=== PATIENT | female | born 1955 | race Caucasian/White ===

== ENCOUNTER 2024-07-18 15:32 | Emergency (ER) | payer MEDICARE, SELFPAY ==
[2024-07-18 15:45] VITALS: BP 164/79; PULSE 62; RESP 17; TEMP 36.9; O2SAT 99; BMI 25.3
[2024-07-18 15:53] LABS: Apearance,Urine Cloudy (Clear); Bilirubin,Urine Negative (Negative); Blood, Urine Negative (Negative); Color,Urine Dark Yellow (Yellow); Glucose,Urine (UA) Negative (Negative); Ketones,Urine Negative (Negative); PH,Urine 5.5 (5.0-8.5); Protein,Urine Negative (Negative); UTC Leukocyte Esterase,Urine 2+ (Negative); UTC Nitrate,Urine Negative (Negative); Urobilinogen,Urine 0.2 EU/dl (0.2)
--- NOTE | 2024-07-18 16:02 | ED_ITS ---
Discharge Plan Disposition Patient Disposition: Home, Self-Care Condition: Good Prescriptions Prescriptions: New cephalexin 500 mg capsule 500 mg PO BID 7 Days Qty: 14 0RF No Action risperidone 0.5 mg tablet 1 mg PO HS Qty: 180 3RF megestrol 400 mg/10 mL (10 mL) suspension 400 mg PO DAILY Qty: 900 3RF donepezil 5 mg tablet 5 mg PO HS Qty: 90 3RF polyethylene glycol 3350 [Miralax] 17 gram/dose powder 17 g PO DAILY Qty: 850 3RF ezetimibe [Zetia] 10 mg tablet 10 mg PO DAILY Referrals Follow up/Referrals: Gisell Recinos APRN [Primary Care Provider] - See instructions Activity Restrictions/Add. Instructions Additional Instructions/Restrictions: *Increase fluids. Water not Soda or Tea *Start antibiotic immediately and be sure to take as ordered for the FULL length of time although you should start to see improvement over the next 48 hours Be SURE to follow up anytime for new or worsening symptoms with your family doctor. AND in 48 hours for urine culture results with your family doctor, if you do not have a doctor then you may call back to the [facility] for urine culture results and further treatment. We do recommend that you choose and establish care with a Primary Care Physician. ?AND follow up with them ?in 10-14 days to repeat UA to ensure infection is resolved and blood no longer present *Be sure to let your PCP know that we sent urine cultures from the [facility] so they can follow up to ensure that you area the on the correct antibiotic Call your doctor office and make appointment for 48 hours (2 days from today) ?to follow up and get the results of your urine culture and further treatment Clinical Impressions Clinical Impression: UTI (urinary tract infection) Instructions Patient Instructions: Urinary Tract Infection, DI for Urinary Tract Infection (UTI), Cephalexin Print Language Print Language: Swedish Discharge ED Provider: Anamaria Vazquez [facility] HPI General Stated complaint: possible UTI Mode of Arrival: Ambulatory Source of Information: Relative Limitations: No Limitations Time Seen by Provider: 07/18/24 16:02 Description of Symptoms (Recalled from Triage Doc. by RN): PATIENT'S DAUGHTER REPORTS THAT PATIENT WAS RECENTLY HOSPITALIZED (APPROX 3-4 WEEKS AGO) FOR A UTI AND BLOOD STREAM INFECTION. DAUGHTER STATES THAT PATIENT HAS ALZHEIMER'S AND DEMENTIA WHICH WAS ADVERSELY EFFECTED BY HER UTI. DAUGHTER STATES THAT PATIENT HAS BEEN LIVING WITH HER FOR THE LAST 10 DAYS AND SHE HAS RECENTLY NOTICED A DIFFERENT IN PATIENT'S MEMORY AND BEHAVIOR OVER THE LAST 2 DAYS AND IS CONCERNED THAT SHE HAS ANOTHER UTI. HEENT Symptoms (Recalled from RN notes): No Resp Symptoms (Recalled from RN notes): No Skin Symptoms (Recalled from RN notes): No MS Symptoms (Recalled from RN notes): No Functional Status (Recalled from RN notes): WNL History of Present Illness Provider Complaint: Daughter states that patient just came to live with her States that she has Alzheimer's and Dementia and recently she was in the [facility] with a bad UTI States that when she gets one they told her to watch for changes in behavior and she has been checking her urine with urine strips has noticed a little change in the strip and her behavior so she brought her in wanting to get her checked for UTI Denies fever, denies chills states that she is just acting a little different than she normally does Related Data Home Medications ?Medication ?Instructions ?Recorded ?Confirmed ezetimibe 10 mg tablet (Zetia) 10 mg PO DAILY 07/12/24 07/12/24 Previous Rx's ?Medication ?Instructions ?Recorded donepezil 5 mg tablet 5 mg PO HS #90 tabs 07/12/24 megestrol 400 mg/10 mL (10 mL) 400 mg (10 mL) PO DAILY #900 mL 07/12/24 oral suspension polyethylene glycol 3350 17 17 g PO DAILY #850 grams 07/12/24 gram/dose oral powder (Miralax) risperidone 0.5 mg tablet 1 mg (2 x 0.5 mg) PO HS #180 tabs 07/12/24 cephalexin 500 mg capsule 500 mg PO BID 7 days #14 caps 07/18/24 Allergies Allergy/AdvReac Type Severity Reaction Status Date / Time No Known Allergies Allergy Verified 07/18/24 15:57 Worker's Comp Is this a Worker's Comp case?: No [facility] Disclaimer: The information contained in this section may have been updated after the patient was seen, as this information can be updated by other users. Medical History (Updated 07/18/24 @ 16:10 by Anamaria Vazquez APRN) Urinary tract infection Hyperlipidemia Alzheimer disease Dementia Surgical History (Updated 07/18/24 @ 15:58 by Alba Huerta RN) History of cholecystectomy History of tonsillectomy Social History (Updated 07/12/24 @ 13:11 by Darian Galvan MA) Smoking Status: Unknown if ever smoked alcohol intake: never current occupational status: retired Travel in the last 8 weeks: None adopted: No caregiver/support person: Yes foster care: No household members: children housing: house lives independently: No marital status: unknown Have you lived/traveled outside [place] in past 30 days?: No Contact w/someone who lives/traveled outside US past 30 days?: No Exposure to someone with infectious disease in past 14 days?: No Do you have a fever (greater than 100.4 F or 38 C)?: No Have you tested positive for COVID-19: No Exposed to someone with COVID-19 in past 14 days?: No Do you have a sore throat?: No Do you have a cough?: No Do you have any weakness?: No Do you have any diarrhea?: No Are you experiencing any unusual bleeding?: No Do you have any muscle aches/pain?: No Do you have any abdominal pain?: No Are you experiencing loss of taste or smell?: No ROS Obtained: Yes All systems reviewed & no additional complaints except as documented and Yes Systems reviewed as appropriate & no additional complaints except as documented Constitutional Constitutional: Reports system reviewed and no additional complaints, except as documented and Reports as per HPI ENT Ears, Nose, Mouth, and Throat: Reports system reviewed and no additional complaints, except as documented and Reports as per HPI Cardiovascular Cardiovascular: Reports system reviewed and no additional complaints, except as documented and Reports as per HPI Respiratory Respiratory: Reports system reviewed and no additional complaints, except as documented and Reports as per HPI Gastrointestinal Gastrointestingal: Reports system reviewed and no additional complaints, except as documented and as per HPI Physical Exam General General appearance: alert and in no apparent distress Chest Chest inspection: Present normal inspection and symmetric chest wall rise Respiratory Respiratory exam: Present normal lung sounds bilaterally; Absent respiratory distress or wheezes Cardiovascular Cardiovascular exam: Present regular rate, normal rhythm and normal heart sounds Abdominal Exam Abdominal exam: Present soft and normal bowel sounds; Absent distention or tenderness Neurological Exam Neurological exam: Present alert, oriented X3 and normal gait Medical Decision Making Medical Records Screening: Per USPSTF and CDC recommendations, given the prevalence of disease in our [facility], it is our hospital?s policy to screen for HIV and viral Hepatitis for all patients aged 18 and over and those with ongoing risk factors. Francesco Inquiry Pt receiving controlled substance: No Francesco was queried for this patient: No Vital Signs: 07/18/24 15:45 Temperature 98.4 F Temperature Source Oral Pulse Rate [Right Brachial] 62 Respiratory Rate 17 Blood Pressure [Right Arm] 164/79 H Blood Pressure Mean [Right Arm] 107 Blood Pressure Source [Right Arm] Automatic Cuff Blood Pressure Position [Right Arm] Sitting 02 Sat by Pulse Oximetry 99 Oxygen Delivery Method Room Air Lab Data Lab results reviewed: Yes I reviewed the patient's lab results. Lab Results 07/18/24 15:37: Urine Color Dark yellow, Urine Appearance Cloudy, Urine pH 5.5, Ur Specific [place] 1.030, Urine Protein Negative, Urine Glucose (UA) Negative, Urine Ketones Negative, Urine Blood Negative, Urine Nitrate Negative, Urine Bilirubin Negative, Urine Urobilinogen 0.2, Ur Leukocyte Esterase 2+ A Orders (Tests/Meds): ORDERS Category Date Time Status Urine Culture Stat Micro 07/18/24 15:42 Received
[2024-07-18 16:10] VITALS: BP 164/79; PULSE 62; RESP 17; TEMP 36.9; O2SAT 99
== END 2024-07-18 16:14 | disposition home or self-care (01) ==
PROVIDERS: Emergency Provider Nurse Practitioner; PCP Nurse Practitioner Family
DX: N39.0 Urinary tract infection, site not specified (principal)
CPT/HCPCS: 81003; 87086; 99213; G0381

== ENCOUNTER 2024-07-31 16:00 | Outpatient (RCR) | payer MEDICARE, SELFPAY ==
--- NOTE | 2024-07-18 15:41 | HMH.PTOPEV ---
PT Outpatient Evaluation Rehab PT Outpatient Evaluation Start: 07/18/24 15:26 Freq: Status: Active Protocol: Document 07/18/24 15:26 RANDAL (Rec: 07/18/24 15:41 RANDAL [id number]) E-signed By Thuan Adair, PT Outpatient Therapy Subjective History Subjective History The patient is a 68 yof who is referred to [facility] outpatient Physical Therapy due to generalized weakness and balance problems. The patient presents with her daughter who helped provide the majority of her subjective history. The patient recently was diagnosed with both dementia and Alzheimer's disease. She recently moved in with her daughter. The daughter reports that she has noticed that she has been taking much shorter steps when walking, is having difficulty going up and down stairs, and has difficulty getting up from chairs at times. The patient also reports that she gets steroid injections into her knees regularly. The patient and daughter deny any falls. New diagnosis of cancer in past 12 No months? Chief Complaint Decreased Coordination Prior Functional Limitations None Current Functional Limitations Housework,Standing,Recreation Activity,Walking,Stairs, Balance Level of pain today (0-10) 0 Pain scale - at its best (0-10) 0 Pain scale - at its worst (0-10) 0 Hip/Knee Eval MMT bilateral Hip Flexion Strength Grade 3+ Fair+ Hip Abduction Strength Grade 3+ Fair+ Hip Adduction Strength Grade 3+ Fair+ Hip Extension Strength Grade 3+ Fair+ Knee Extension Strength Grade 4 Good Knee Flexion Strength Grade 4 Good Balance Eval Timed Up and Go Test 1. Is the Timed Up and Go test result > yes or = to 12 seconds? [place] Feet Together/Eyes open/Stable Surface pass Feet Together/Eyes Closed/Stable Surface pass Feet Together/Eyes open/Unstable Surface fail Feet Together/Eyes Closed/Unstable fail Surface Dynamic Gait Index Test Protocol Gait Level Surface Mild Impairment Query Text: Instructions: Walk at your normal speed from here to the next mirna (20'). Grading: Mirna the lowest category that applies. Change in Gait Speed Mild Impairment Query Text: Instructions: Begin walking at your normal pace (for 5'), when I tell you go , walk as fast as you can (for 5'). When I tell you slow , walk as slowly as you can (for 5'). Grading: Mirna the lowest category that applies. Gait with Horizontal Head Turns Moderate Impairment Query Text: Instructions: Begin walking at your normal pace. When I tell you to look right , keep walking straight, but turn you head to the right. Keep looking to the right unit I tell you look left , then keep walking straight and turn your head to the left. Keep your head to the left until I tell you look straight , then keep walking straight, but return you head to the center. Grading: Mirna the lowest category that applies. Gait with Vertical Head Turns Moderate Impairment Query Text: Instructions: Begin walking at your normal pace. When I tell you to look up , keep walking staight, but tip your head up. Keep looking up until I tell you to look down , then keep walking straight and tip your head down. Keep your head down until I tell you look straight , then keep walking straight, but return your head to the center. Grading: Mirna the lowest category that applies. Gait and Pivot Turn Normal Query Text: Instructions: Begin walking at your normal pace. When I tell you turn and stop , turn as quickly as you can to face the opposite direction and stop. Grading: Mirna the lowest category that applies. Step Over Obstacle Mild Impairment Query Text: Instructions: Begin walking at your normal speed. When you come to the shoebox, step over it, not around it and keep walking. Grading: Mirna the lowest category that applies. Step Around Obstacles Normal Query Text: Instructions: Begin walking at normal speed. When you come to the first cone (about 6' away), walk around the right side of it. When you come to the second cone (6' past first cone), walk around it to the left. Grading: Mirna the lowest category that applies. Steps Moderate Impairment Query Text: Instructions: Walk up these stairs as you would at home. At the top, turn around and walk down. Grading: Mirna the lowest category that applies. Scoring Dynamic Gait Index Score 15 Miscellaneous Dx PT Eval Objective Objective Tandem L: 12s Tandem R: 20s SLS: L 4s SLS: R 6s Outpatient Therapy Assessment Impairments Problems/Impairmments Impaired Strength,Impaired Gait Pattern,Impaired Walking, Impaired Stair Climbing, Impaired DGI Score,Impaired TUG Time Prognosis Rehab Potential Fair Comment The patient presents with impairments in strength, balance and gait. She demonstrates slowed, shuffling gait. She also scored a 15/24 on the DGI, which is indicative that the patient is a current fall risk. Skilled PT is indicated for this pt to address her current impairments and prevent future injuries. Clinical Impression Consistent with Diagnosis Yes Short Term Goals Number of Weeks 4 Increase Strength Yes: /5 to B LEs Improve Gait Pattern without Assistive Yes: Normalized Step Length BL Device Improve Balance Yes: Tandem Stance: 30s B Increase DGI Score Yes: to Decrease TUG Time Yes: to 12s Patient to be Ind w/ HEP Yes Care Home Goals Number of Weeks 8 Increase Strength Yes: 12/04 to B LEs Improve Ability to Climb Stairs Yes: Independently Improve Balance Yes: SLS 30s B Increase DGI Score Yes: Patient to be Ind w/ Advanced HEP Yes Outpatient Therapy Plan of Care Treatment Plan May Include Therapeutic Exercise Including Home Yes Exercise Program Manual Therapy Techniques Yes Neuromuscular Re-education Yes Therapeutic Activities to Return to Yes Previous Functional/Work Level Gait Training Yes ADL/Self Care Education Yes Thermal Modalities Yes Electrical Stimulation Yes Massage Yes Manual Lymphatic Drainage Yes Frequency Times per week 2 Duration Number of Weeks 8 Addendums This patient is a candidate for social No or vocational rehab? Patient/Guardian verbally acknowledges Yes understanding of treatment program and consents to further treatment? Patient/Guardian verbally acknowledges Yes understanding of diagnosis, prognosis and goals for treatment? Eval Complexity PT Charges 32200 - Moderate Complexity Shoulder/Elbow Eval Shoulder Objective Measurements Elbow Objective Measurements PHYSICIAN CERTIFICATION: I certify the specified therapy services for Anamaria Kelly are required, authorized, and reviewed every 30 days.
== END 2024-07-31 23:59 | disposition home or self-care (01) ==
LOC: PT 16:00
PROVIDERS: PCP Nurse Practitioner Family; Visit Provider Nurse Practitioner Family
DX: R53.1 Weakness (principal); G30.9 Alzheimer's disease, unspecified; F02.818 Dementia in other diseases classified elsewhere, unspecified severity, with other behavioral disturbance
CPT/HCPCS: 97163

== ENCOUNTER 2024-08-04 15:40 | Outpatient (RCR) | payer MEDICARE, SELFPAY | END 2024-08-04 23:59 | disposition home or self-care (01) | LOC: PT 15:40 | PROVIDERS: PCP Nurse Practitioner Family; Visit Provider Nurse Practitioner Family | DX: R53.1 Weakness (principal); G30.9 Alzheimer's disease, unspecified; F02.818 Dementia in other diseases classified elsewhere, unspecified severity, with other behavioral disturbance | CPT/HCPCS: 97110; 97530 ==

== ENCOUNTER 2024-08-14 14:04 | Outpatient (CLI) | payer MEDICARE, SELFPAY ==
[2024-08-14 14:03] LABS: Basophils # 0.1 K/mm3 (0-0.2); Eosinophils # 0.2 K/mm3 (0.0-0.4); Eosinophils % 3.4 % (0.1-12.0); Lymphocytes # 0.9 K/mm3 (0.7-4.5); Lymphocytes % 16.7 % (10-50); Red Cell Distribution Width 13.7 % (11.5-17.5)
[2024-08-14 14:08] LABS: Basophils % 1.7 % (0.1-2.0); Hemoglobin 12.9 g/dL (12.2-16.2); Mean Corpuscular HGB Conc 32.3 g/dL (31.8-35.4); Mean Corpuscular Hemoglobin 29.9 pg (27.0-31.2); Mean Corpuscular Volume 92.8 fl (81-99); Mean Platelet Volume 9.8 fl (7.4-10.4); Monocytes # 0.4 K/mm3 (0.1-1.0); Monocytes % 8.1 % (1.7-9.3); Neutrophils # 3.7 K/mm3 (1.8-7.8); Neutrophils % 69.7 % (37.0-80.0); Platelet Count 223 K/mm3 (142-424); Red Blood Count 4.31 M/mm3 (4.20-5.40); White Blood Count 5.3 K/mm3 (4.8-10.8)
[2024-08-14 14:23] LABS: Alanine Aminotransferase 20 U/L (12-78); Albumin/Globulin Ratio 1.9 (1.1-1.8); Alkaline Phosphatase 70 U/L (38-126); Aspartate Amino Transferase 30 U/L (14-36); Bilirubin,Total 0.4 mg/dl (0.2-1.3); Blood Urea Nitrogen 13 mg/dl (7-17); Calcium 9.3 mg/dl (8.4-10.2); Carbon Dioxide 27 mmol/L (22.0-30.0); Chloride 105 mmol/L (98-107); Chol/HDL Ratio 3.4 (1-3.5); Cholesterol 198 mg/dl (140-200); Estimated Glomerular Filt Rate 99 ml/min (>60); GFR (African American) 120 ML/MIN (>60); Globulin 2.1 g/dL (1.3-3.2); Glucose 77 mg/dl (74-100); HDL Cholesterol 59 mg/dl (40-60); Phosphorous 3.6 mg/dl (2.5-4.5); Sodium 139 mmol/L (136-145); Total Protein,Serum 6.1 g/dl (6.3-8.2); Triglycerides 77 mg/dl (30-150); VLDL Cholesterol 15 mg/dL (0-40)
[2024-08-14 14:32] LABS: Iron 81 ug/dL (37-170)
[2024-08-14 14:34] LABS: Direct LDL Cholesterol 111.46 mg/dL (100-129)
[2024-08-14 14:41] LABS: Total Iron Binding Capacity 296 ug/dL (265-497)
[2024-08-14 14:42] LABS: 25-OH Vitamin D, Total 23.6 ng/mL (30-100); Free T4 (Free Thyroxine) 1.35 ng/dl (0.78-2.19)
[2024-08-14 14:55] LABS: Thyroid Stimulating Hormone 0.14 uIU/mL (0.465-4.68)
[2024-08-14 14:58] LABS: RPR W/RFX Titers Nonreactive (Nonreactive)
[2024-08-14 15:02] LABS: HIV Combo NEGATIVE (Negative)
[2024-08-14 15:08] LABS: Ferritin 106 ng/ml (11.1-264)
[2024-08-14 15:10] LABS: Hepatitis C Ab Qual. W/ RFX NEGATIVE (Negative)
[2024-08-14 15:31] LABS: Folate 7.64 ng/mL; Vitamin B12 232 pg/mL (239-931)
== END 2024-08-14 23:59 | disposition home or self-care (01) ==
LOC: LAB.DROPOF 14:04
PROVIDERS: PCP Nurse Practitioner Family; Visit Provider Nurse Practitioner Family
DX: E78.5 Hyperlipidemia, unspecified (principal); D64.9 Anemia, unspecified; G30.9 Alzheimer's disease, unspecified; F02.818 Dementia in other diseases classified elsewhere, unspecified severity, with other behavioral disturbance; E55.9 Vitamin D deficiency, unspecified; R63.4 Abnormal weight loss; R53.83 Other fatigue; G47.00 Insomnia, unspecified
CPT/HCPCS: 80053; 80061; 82306; 82607; 82728; 82746; 83540; 83550; 83735; 84100; 84439; 84443; 85025; 86592; 86803; 87389

== ENCOUNTER 2024-08-16 15:00 | Outpatient (CLI) | payer MEDICARE, SELFPAY ==
--- NOTE | 2024-08-16 15:01 | XR_ITS ---
FINAL REPORT TECHNIQUE: Bone densitometry calculations of the lumbar spine and left hip were obtained. CLINICAL HISTORY: screening osteoporosis COMPARISON: None FINDINGS: Using L1-4, the bone mineral density of the spine is 0.976 g/cm2, corresponding to T-score of -0.6. Using the left hip, the bone mineral density of the femoral neck is 0.734 g/cm2, corresponding to a T-score of -1.7. Using the right hip, the bone mineral density of the femoral neck is 0.573 g/cm?, corresponding to a T-score of -2.5. NOTE: T-score: Standard deviation compared with peak bone mass of young adult mean. *Following the recommendations of the International Society of Bone densitometry, classification of hip BMD is based on the lower of two T-scores; total hip or femoral neck. IMPRESSION: Diminished bone mineral density of the right hip consistent with osteoporosis. Diminished bone mineral density of the left hip, consistent with osteopenia. Normal bone mineral density of the lumbar spine. Reviewed, Interpreted and Dictated by Mony Maki MD Transcribed by Lesa White Authenticated and [facility]
--- NOTE | 2024-08-16 15:01 | MM_ITS ---
PROCEDURE INFORMATION: Exam: MG Bilateral Screening 3D Mammography Exam date and time: 08/16/2024 3:01 PM Age: 68 years old Clinical indication: Screening/baseline. No family history of cancer. TECHNIQUE: Imaging protocol: Bilateral Screening tomosynthesis and 2D mammography including computer-aided detection (CAD) when performed. COMPARISON: No relevant prior studies available.If prior mammograms are provided, I am happy to add an addendum. FINDINGS: MAMMOGRAPHY: Breast composition: There are scattered areas of fibroglandular density. Mass: None. Architectural distortion: None. Calcifications: No suspicious calcifications. Asymmetric density: None. Skin thickening: None. Axillary adenopathy: Oval 0.4 cm mass high in the left axilla, more likely a lymph node though no fatty hilum identified, MLO image 1372 frame 13, 18-20 cm from the nipple. IMPRESSION: Patient will be recalled for left sonography in the upper left breast/axilla, 18-20 cm from the nipple for further evaluation of mass, more likely a lymph node. ASSESSMENT: BI-RADS Category 0: Incomplete: Need Additional Imaging Evaluation.
== END 2024-08-16 23:59 | disposition home or self-care (01) ==
LOC: RAD 15:01
PROVIDERS: PCP Nurse Practitioner Family; Visit Provider Nurse Practitioner Family
DX: M81.0 Age-related osteoporosis without current pathological fracture (principal); Z12.31 Encounter for screening mammogram for malignant neoplasm of breast
CPT/HCPCS: 77063; 77067; 77080

== ENCOUNTER 2024-08-25 13:07 | Outpatient (CLI) | payer MEDICARE, SELFPAY ==
--- NOTE | 2024-08-25 13:08 | US_ITS ---
PROCEDURE INFORMATION: Exam: US Left Joint, Complete Exam date and time: 08/25/2024 1:12 PM Age: 68 years old Clinical indication: Abnormal findings; Abnormal imaging study; Lt axillary; Additional info: Enlarged left axillary lymph node on mammogram TECHNIQUE: Imaging protocol: Left US Joint including joint space, tendons, ligaments, and emeli-articular soft tissue. Complete exam. Exam was focused on the joint of clinical interest. COMPARISON: No relevant prior studies available. FINDINGS: Soft tissues: Ultrasonographic images of the soft tissues in questions/left axillary region. Lymph node of approximately 2 x 0.7 x 1.4 cm. Fatty nidus. Additional lymph nodes of approximately 0.7 and 1.1 cm. Fatty nidus. Bones/joints: Not imaged IMPRESSION: Ultrasonographic images of the soft tissues in questions/left axillary region. Lymph node of approximately 2 x 0.7 x 1.4 cm. Fatty nidus. Additional lymph nodes of approximately 0.7 and 1.1 cm. Fatty nidus.
== END 2024-08-25 23:59 | disposition home or self-care (01) ==
PROVIDERS: PCP Nurse Practitioner Family; Visit Provider Nurse Practitioner Family
DX: R92.8 Other abnormal and inconclusive findings on diagnostic imaging of breast (principal); R59.0 Localized enlarged lymph nodes
CPT/HCPCS: 76642

== ENCOUNTER 2024-10-01 16:47 | Observation (INO) | payer MEDICARE, SELFPAY ==
[2024-10-01] VITALS (13 sets, daily range): BP systolic 149–191; BP diastolic 79–109; PULSE 68–102; RESP 14–18; TEMP 36.6–37.3; O2SAT 97–100; BMI 22.9; BMI 23.5
--- NOTE | 2024-10-01 17:52 | PC.NURSE ---
pt brought back to RM 8 from the lobby. pt c/o weakness, dizziness when standing/ambulating, and difficulty swallowing making it difficult for her to get a good breath. This began this AM. pts breathing is non-labored, 97% RA and 18 RR. pt is continually smacking and trying to swallow. She is intermittently trying to clear her throat. pt denies chest pain, abd pain, cough, urinary issues or congestion. Pts daughter states that over the last few days she has had decreased PO intake, mostly a decrease in fluid intake. pt has a hx of parkinsons dementia. Pt is A&O x3. disoriented to year/month. The pts daughter states this is her baseline. However, the daughter reports she seems slightly more confused. The daughter would like her checked for a UTI.
--- NOTE | 2024-10-01 18:49 | XR_ITS ---
PROCEDURE INFORMATION: Exam: XR Soft Tissue Neck Exam date and time: 10/01/2024 7:27 PM Age: 68 years old Clinical indication: Other: Difficulty swallowing TECHNIQUE: Imaging protocol: Radiologic exam of the soft tissues of the neck. COMPARISON: CR Chest 10/01/2024 7:26 PM FINDINGS: Airway: Normal. No abnormal narrowing. Soft tissues: Normal. Normal epiglottis. Bones/joints: Diffuse decreased disc space height demonstrated at The C4-C7 levels. Vertebral body heights and disc space heights appear otherwise normal. IMPRESSION: No visible acute fracture/malalignment.
--- NOTE | 2024-10-01 18:49 | XR_ITS ---
PROCEDURE INFORMATION: Exam: XR Chest Exam date and time: 10/01/2024 7:26 PM Age: 68 years old Clinical indication: Shortness of breath; Additional info: Difficulty breathing TECHNIQUE: Imaging protocol: Radiologic exam of the chest. Views: 1 view. COMPARISON: No relevant prior studies available. FINDINGS: Lungs: Unremarkable. No consolidation. Pleural spaces: Unremarkable. No pleural effusion. No pneumothorax. Heart/Mediastinum: Unremarkable. No cardiomegaly. Bones/joints: Unremarkable. IMPRESSION: No acute findings.
--- NOTE | 2024-10-01 18:50 | ED_ITS ---
Discharge Plan Disposition Patient Disposition: Admitted Condition: Fair Clinical Impressions Clinical Impression: Urinary tract infection Discharge ED Provider: Valerie Maloney General Adult HPI General Chief complaint: Weakness Stated complaint: SOA,difficulty swollowing,? UTI, BP 167/80 Time Seen by Provider: 10/01/24 18:13 Mode of Arrival: Ambulatory Source of Information: Patient and Relative Limitations: No Limitations Description of Symptoms (Recalled from ER Triage Doc. by RN): Pt presents with daughter for evaluation of patient having difficulty swallowing over the last few days. Pt states it becomes difficult to swallow because her throat gets dry. daughter says that patient is eating/drinking less. Daughter is concerned that patient may have a UTI because she has been up more frequently during the night. History of Present Illness HPI narrative: Anamaria Kelly is a 68-year-old female presenting with difficulty swallowing. Patient is accompanied by her daughter who provides history at bedside. Daughter states the patient began complaining of difficulty breathing and swallowing today. She states she is pointing to her upper chest, lower neck to describe where her symptoms are. Patient has history of Parkinson's. Daughter states that patient has not drank anything today due to this feeling. Patient has not had fevers, chills, chest pain, abdominal pain, nausea, vomiting. Related Data Previous Rx's ?Medication ?Instructions ?Recorded donepezil 5 mg tablet 5 mg PO HS #90 tabs 07/12/24 cholecalciferol (vitamin D3) 50 50 mcg PO DAILY #90 caps 08/14/24 mcg (2,000 unit) capsule mecobalamin (vitamin B12) 1,000 1,000 mcg PO DAILY #90 tabs 08/14/24 mcg chewable tablet calcium carbonate 1,200 mg (2 x 600 mg calcium 08/17/24 (1,500 mg)) PO DAILY #180 tabs denosumab 60 mg/mL subcutaneous 60 mg SQ [id number] #1 mL 08/17/24 syringe (Prolia) Allergies Allergy/AdvReac Type Severity Reaction Status Date / Time No Known Allergies Allergy Verified 09/15/24 09:34 [facility] Disclaimer: The information contained in this section may have been updated after the patient was seen, as this information can be updated by other users. Medical History Urinary tract infection Hyperlipidemia Alzheimer disease Dementia Surgical History History of cholecystectomy History of tonsillectomy Family History Other Cancer Cancer of kidney Parkinson disease Social History Smoking Status: Never smoker alcohol intake: never current occupational status: retired Travel in the last 8 weeks: None adopted: No caregiver/support person: Yes foster care: No household members: children housing: house lives independently: No marital status: unknown Have you lived/traveled outside [place] in past 30 days?: No Contact w/someone who lives/traveled outside [place] past 30 days?: No Exposure to someone with infectious disease in past 14 days?: No Do you have a fever (greater than 100.4 F or 38 C)?: No Have you tested positive for COVID-19: No Exposed to someone with COVID-19 in past 14 days?: No Do you have a sore throat?: No Do you have a cough?: No Do you have any weakness?: No Are you experiencing any nausea/vomitting?: No Do you have any diarrhea?: No Are you experiencing any unusual bleeding?: No Do you have any muscle aches/pain?: No Do you have any abdominal pain?: No Are you experiencing loss of taste or smell?: No Other Medical History Have you received the Pneumonia Vaccine: Yes ROS Obtained: Yes All systems reviewed & no additional complaints except as documented Physical Exam General General appearance: alert and in no apparent distress Head Head exam: atraumatic Eye Eye exam: Present EOMI; Absent scleral icterus ENT ENT exam: Present normal oropharynx, mucous membranes dry and other (Patient continually moving tongue and mouth appearing to attempt to swallow. No drooling, no trismus. ) Neck Neck exam: Present normal inspection, full ROM and trachea midline; Absent tenderness or thyromegaly Chest Chest inspection: Present normal inspection; Absent tenderness Respiratory Respiratory exam: Present normal lung sounds bilaterally; Absent respiratory distress, wheezes or stridor Cardiovascular Cardiovascular exam: Present regular rate and normal rhythm Abdominal Exam Abdominal exam: Present soft; Absent distention or tenderness Extremities Exam Extremities exam: Present full ROM; Absent tenderness or edema Back Exam Back exam: Present full ROM Neurological Exam Neurological exam: Present alert and oriented X3 Psychiatric Psychiatric exam: Present normal mood Skin Skin exam: Present warm and dry Medical Decision Making Medical Records Medical records reviewed: Yes I reviewed the patient's medical records. Screening: Per USPSTF and CDC recommendations, given the prevalence of disease in our region, it is our hospital?s policy to screen for HIV and viral Hepatitis for all patients aged 18 and over and those with ongoing risk factors. Francesco Inquiry Pt receiving controlled substance: No Vital Signs: 10/01/24 17:03 10/01/24 17:54 10/01/24 18:00 Temperature 99.1 F Temperature Source Oral Pulse Rate 71 83 Pulse Rate [Right] 68 Respiratory Rate 18 Blood Pressure 166/94 H 157/91 H Blood Pressure [Right Arm] 153/79 H Blood Pressure Mean Blood Pressure Mean [Right Arm] 103 Blood Pressure Source [Right Arm] Automatic Cuff Blood Pressure Position Blood Pressure Position [Right Arm] Sitting 02 Sat by Pulse Oximetry 98 99 98 Oxygen Delivery Method Room Air Room Air Room Air 10/01/24 18:30 10/01/24 19:00 10/01/24 19:30 Temperature Temperature Source Pulse Rate 88 91 H 96 H Pulse Rate [Right] Respiratory Rate Blood Pressure 177/103 H 179/103 H 191/109 H Blood Pressure [Right Arm] Blood Pressure Mean 128 136 Blood Pressure Mean [Right Arm] Blood Pressure Source [Right Arm] Blood Pressure Position Blood Pressure Position [Right Arm] 02 Sat by Pulse Oximetry 97 99 99 Oxygen Delivery Method Room Air 10/01/24 20:00 10/01/24 20:30 10/01/24 21:00 Temperature Temperature Source Pulse Rate 102 H 100 H 90 Pulse Rate [Right] Respiratory Rate Blood Pressure 173/100 H 169/99 H 149/89 H Blood Pressure [Right Arm] Blood Pressure Mean 133 122 109 Blood Pressure Mean [Right Arm] Blood Pressure Source [Right Arm] Blood Pressure Position Blood Pressure Position [Right Arm] 02 Sat by Pulse Oximetry 99 98 99 Oxygen Delivery Method 10/01/24 21:30 10/01/24 22:00 10/01/24 23:43 Temperature 99 F Temperature Source Oral Pulse Rate 88 79 78 Pulse Rate [Right] Respiratory Rate 14 Blood Pressure 157/89 H 168/93 H 162/87 H Blood Pressure [Right Arm] Blood Pressure Mean 117 109 Blood Pressure Mean [Right Arm] Blood Pressure Source [Right Arm] Blood Pressure Position Sitting Blood Pressure Position [Right Arm] 02 Sat by Pulse Oximetry 99 98 Oxygen Delivery Method Room Air Lab Data Lab results reviewed: Yes I reviewed the patient's lab results. Lab Results 10/01/24 18:30: WBC 6.0, RBC 4.31, Hgb 12.8, Hct 40.0, MCV 92.8, MCH 29.7, MCHC 32.0, RDW 12.8, Plt Count 222, MPV 10.2, Neut % (Auto) 62.8, Lymph % (Auto) 23.4, [place] % (Auto) 8.2, Eos % (Auto) 4.2, Baso % (Auto) 1.2, Neut # (Auto) 3.7, Lymph # (Auto) 1.4, [place] # (Auto) 0.5, Eos # (Auto) 0.3, Baso # (Auto) 0.1, Sodium 140, Potassium 4.1, Chloride 108 H, Carbon Dioxide 26, Anion Gap 10.1, BUN 14, Creatinine 0.60, Estimated Creat Clear 53, Estimated GFR 99, Est GFR ( Amer) 120, Glucose 98, Calcium 7.9 L, Total Bilirubin 0.6, AST 33, ALT 25, Alkaline Phosphatase 83, Total Protein 6.7, Albumin 4.3, Globulin 2.4, Albumin/Globulin Ratio 1.8, TSH 0.30 L, Free T4 1.48 10/01/24 18:30 10/01/24 18:30 Orders (Tests/Meds): ED MEDICATIONS Generic Name Dose Route Start Last Admin Trade Name Freq PRN Reason Stop Dose Admin Lactated Ringer's 1,000 mls @ 50 mls/hr 10/01/24 23:15 10/01/24 23:51 Lactated Ringer's 1000 Ml Bag IV 10/31/24 23:14 50 mls/hr .Q20H MARCELLA Administration Ondansetron HCl 4 mg 10/01/24 23:08 Ondansetron 4mg/2ml Vial IV 10/31/24 23:07 Q8HP PRN Nausea Discontinued Medications Generic Name Dose Route Start Last Admin Trade Name Freq PRN Reason Stop Dose Admin Lactated Ringer's 1,000 mls @ 999 mls/hr 10/01/24 19:50 10/01/24 20:48 Lactated Ringer's 1000 Ml Bag IV 10/01/24 20:50 999 mls/hr .Q1H1M ONE Administration Iopamidol 75 ml 10/01/24 21:38 10/01/24 21:40 Iopamidol-370 (76%);100ml Bottle IV 10/01/24 21:39 75 ml ONCE ONE Administration Sodium Chloride 10 ml 10/01/24 21:38 10/01/24 21:40 Sodium Chloride 0.9% 10ml Syr (Rad Only) IV 10/01/24 21:39 10 ml ONCE ONE Administration ORDERS Category Date Time Status CT head/brain wo con Stat Cat Scan 10/01/24 21:[address] soft tissue neck w con Stat Cat Scan 10/01/24 21:23 Completed CXR --portable [XR chest portable] Stat Exams 10/01/24 18:49 Completed Neck soft tissue XR [XR soft tissue neck] Stat Exams 10/01/24 18:49 Completed CBC w/Auto Diff [Complete Blood Count Auto Diff] Stat Lab 10/01/24 18:30 Completed CMP [Comprehensive Metabolic Panel] Stat Lab 10/01/24 18:30 Completed Free T4 (Free Thyroxine) Stat Lab 10/01/24 18:30 Completed TSH [Thyroid Stimulating Hormone] Stat Lab 10/01/24 18:30 Completed Urinalysis and Microscopic Stat Lab 10/01/24 18:52 Ordered ECG Data Tracing #1: I reviewed this ECG and interpreted as documented below: Sinus rhythm with a rate of 76, no QTc prolongation, no significant ST elevation/depression or evidence of acute ischemia Medical Decision Narrative: In summary, this is a 68-year-old female presenting with difficulty breathing and swallowing. Differential diagnosis includes was not limited to, dysmotility, achalasia, aspiration, obstruction, stroke, among others. Concern for neurologic source based on timeline of difficulty swallowing as well as potential Parkinson's disease that has not been diagnosed yet. Patient's family at bedside states patient has multiple direct family members that have had Parkinson's. Patient evaluated with CBC, CMP, urinalysis, CXR, neck XR. Patient treated with IV fluids. CBC negative for leukocytosis, anemia, thrombocytopenia. CMP nonactionable. Urinalysis pending. CXR personally reviewed by me and negative for acute consolidation, pneumothorax, widened mediastinum. Neck XR personally reviewed by me and negative for airway obstruction or narrowing. Patient case discussed with [facility] hospitalist for formal swallow study and Occupational Therapy/speech therapy evaluation. We were in agreement that patient may need further neurologic evaluation. I spoke with the hospitalist at [facility], who requested CT head and CT soft tissue neck. These scans were ordered and negative for acute infarct or obstructive pathology in the neck. CT neck did demonstrate small thyroid nodules which will require further evaluation. TSH and free T4 added to patient's evaluation and unremarkable. These nodules were not large enough to cause compression and difficulty swallowing. I communicated with the hospitalist at [facility] who agreed to accept the patient as a transfer for further neurologic evaluation. Unfortunately, no beds are currently available. Based on patient waiting for a bed, I spoke with the [facility] hospitalist again who agreed to admit the patient while awaiting transfer to [facility]. Patient and family were updated about this plan. They were in agreement with the plan. Patient admitted in stable condition. Critical Care Critical Care Time Critical Care Time: No
[2024-10-01 18:57] LABS: Basophils # 0.1 K/mm3 (0-0.2); Basophils % 1.2 % (0.1-2.0); Eosinophils # 0.3 K/mm3 (0.0-0.4); Eosinophils % 4.2 % (0.1-12.0); Hemoglobin 12.8 g/dL (12.2-16.2); Lymphocytes # 1.4 K/mm3 (0.7-4.5); Lymphocytes % 23.4 % (10-50); Mean Corpuscular Hemoglobin 29.7 pg (27.0-31.2); Mean Corpuscular Volume 92.8 fl (81-99); Mean Platelet Volume 10.2 fl (7.4-10.4); Monocytes # 0.5 K/mm3 (0.1-1.0); Monocytes % 8.2 % (1.7-9.3); Neutrophils # 3.7 K/mm3 (1.8-7.8); Neutrophils % 62.8 % (37.0-80.0); Platelet Count 222 K/mm3 (142-424); Red Blood Count 4.31 M/mm3 (4.20-5.40); Red Cell Distribution Width 12.8 % (11.5-17.5)
[2024-10-01 19:12] LABS: Albumin Level 4.3 g/dl (3.5-5.0); Chloride 108 mmol/L (98-107); Potassium 4.1 mmoL/L (3.5-5.1); Sodium 140 mmol/L (136-145)
[2024-10-01 19:15] LABS: Alanine Aminotransferase 25 U/L (12-78); Albumin/Globulin Ratio 1.8 (1.1-1.8); Alkaline Phosphatase 83 U/L (38-126); Anion Gap 10.1 mEq/L (5-15); Aspartate Amino Transferase 33 U/L (14-36); Bilirubin,Total 0.6 mg/dl (0.2-1.3); Blood Urea Nitrogen 14 mg/dl (7-17); Carbon Dioxide 26 mmol/L (22.0-30.0); Creatinine Clearance Estimated 53 mL/min (50-200); Estimated Glomerular Filt Rate 99 ml/min (>60); GFR (African American) 120 ML/MIN (>60); Globulin 2.4 g/dL (1.3-3.2); Total Protein,Serum 6.7 g/dl (6.3-8.2)
[2024-10-01 19:16] LABS: Calcium 7.9 mg/dl (8.4-10.2); Glucose 98 mg/dl (74-100)
--- NOTE | 2024-10-01 20:00 | ECG_ITS ---
APPROVED REPORT Exam: Resting ECG HR:76 bpm ECG Measurements Heart Rate 76 AXES MO 154 P 52 QRSd 75 QRS 55 QT 370 T 51 QTc 400 Conclusion SINUS RHYTHM NORMAL ECG UNCONFIRMED REPORT Electronically signed by : Valerie Maloney, 10/02/2024 00:52:02
--- NOTE | 2024-10-01 20:40 | PC.NURSE ---
[facility] called regarding need for transfer
[2024-10-01] MEDS: LACTATED RINGERS 1000ML 1,000 ML 999 ML IV (20:48)
--- NOTE | 2024-10-01 21:23 | CT_ITS ---
PROCEDURE INFORMATION: Exam: CT Head Without Contrast Exam date and time: 10/01/2024 9:38 PM Age: 68 years old Clinical indication: Other: Stroke eval TECHNIQUE: Imaging protocol: Computed tomography of the head without contrast. Radiation optimization: All CT scans at this facility use at least one of these dose optimization techniques: automated exposure control; mA and/or kV adjustment per patient size (includes targeted exams where dose is matched to clinical indication); or iterative reconstruction. COMPARISON: CR XR SOFT TISSUE NECK 10/01/2024 7:27 PM FINDINGS: Brain: Normal. No hemorrhage. Unremarkable white matter. No mass effect. Cerebral ventricles: No ventriculomegaly. Paranasal sinuses: Visualized sinuses are unremarkable. No fluid levels. Mastoid air cells: Visualized mastoid air cells are well aerated. Bones: Unremarkable. No acute fracture. Soft tissues: Unremarkable. IMPRESSION: No acute intracranial abnormality.
--- NOTE | 2024-10-01 21:23 | CT_ITS ---
PROCEDURE INFORMATION: Exam: CT Neck With Contrast Exam date and time: 10/01/2024 9:40 PM Age: 68 years old Clinical indication: Other: Swallow difficulty TECHNIQUE: Imaging protocol: Computed tomography of the neck with contrast. Radiation optimization: All CT scans at this facility use at least one of these dose optimization techniques: automated exposure control; mA and/or kV adjustment per patient size (includes targeted exams where dose is matched to clinical indication); or iterative reconstruction. Contrast material: ISOVUE; Contrast volume: 75 ml; Contrast route: IV; COMPARISON: CR XR SOFT TISSUE NECK 10/01/2024 7:27 PM FINDINGS: Salivary glands: Normal. Glands are normal in size. Pharynx: See Lymph nodes finding. Larynx: Normal epiglottis Thyroid: Several small low-density well-circumscribed thyroid nodules. Largest measures 1.4 cm Trachea: Visualized trachea is unremarkable. Lungs: Unremarkable as visualized. Lymph nodes: No definite adenopathy. No parapharyngeal rim enhancing fluid collection Bones/joints: Mild diffuse degenerative disc disease. Soft tissues: Unremarkable. No significant soft tissue swelling. IMPRESSION: 1. No visible rim enhancing fluid collection or lymphadenopathy. 2. Incidental findings above COMMENTS: Consistent with the [employer]'s Incidental Findings Committee white paper (J Am Andrea Radiol 2015): In patients aged 35 years and older with an incidental thyroid nodule equal to or greater than 1.[address], MRI or extrathyroidal US, further evaluation with dedicated thyroid US is recommended for patients with normal life expectancy and without comorbidities. For smaller nodules without suspicious features, no further evaluation or follow up is recommended.
[2024-10-01] MEDS: SODIUM CHLORIDE 0.9% 10ML SYR (RAD ONLY) 10 ML IV (21:40)
[2024-10-01] MEDS: IOPAMIDOL-370 (76%);100ML BOTTLE 75 ML IV (21:40)
--- NOTE | 2024-10-01 22:36 | PC.NURSE ---
Spoke with [facility] to reconnect us with neuro for the rest of the CT results, religious will call us back.
[2024-10-01 23:02] LABS: Free T4 (Free Thyroxine) 1.48 ng/dl (0.78-2.19)
--- NOTE | 2024-10-01 23:07 | P.HP_ITS ---
<Statement entered by Eduardo Greer MD - 10/02/24 22:59> Personally evaluated patient and agree with plan of care as outlined by the CONTRACTS ADVISOR. History of Present Illness *Admission Date: 10/01/24 *Reason for visit:: Dysphagia *History of present illness: The patient is a 68-year-old female with a past medical history of Parkinson?s disease (diagnosed 17 years ago, untreated) and Alzheimer?s dementia, who presented to the emergency department (ED) at [facility] with difficulty swallowing starting today. She is accompanied by her daughter, who provides history at bedside. The daughter reports the patient has been pointing to her upper chest and lower neck to describe a sensation of throat dryness and difficulty breathing/swallowing, with symptoms severe enough to prevent food or drink intake today. The daughter also notes increased nighttime waking, raising concern for a possible urinary tract infection (UTI). EMS triage notes, recalled by the RN, describe dysphagia over the past few days and reduced oral intake, though my history confirms onset today. On arrival, she was alert but limited in providing history due to dementia; my exam revealed no fever, chills, chest pain, abdominal pain, nausea, or vomiting, but noted dry mucous membranes (dehydration) and subtle resting tremor consistent with untreated Parkinson?s, without respiratory distress. Labs were unremarkable except for a TSH of 0.30 (low, suggesting hyperthyroidism); i nsufficient urine output precluded urinalysis. CT head was normal. CT soft tissue neck with contrast (10/01/24, 21:40) showed no rim-enhancing fluid collection, lymphadenopathy, or swelling, but identified incidental thyroid nodules (largest 1.4 cm) and mild degenerative disc disease. Differential diagnosis includes neurogenic dysphagia from untreated Parkinson?s (most likely, given 17-year history), Alzheimer?s progression, thyroid-related dysphagia (nodules or hyperthyroidism), or less likely esophageal obstruction/infection (normal CT, no fever). Initial ED interventions were not specified. Given her untreated Parkinson?s as a probable cause of dysphagia, lack of on-site neurology, and need for specialty evaluation, transfer to [facility] was arranged for the morning of 10/02/24. The patient and daughter agreed to transfer after discussion. [facility] Disclaimer: The information contained in this section may have been updated after the patient was seen, as this information can be updated by other users. Medical History Urinary tract infection Hyperlipidemia Alzheimer disease Dementia Surgical History History of cholecystectomy History of tonsillectomy Family History Other Cancer Cancer of kidney Parkinson disease Social History Smoking Status: Never smoker alcohol intake: never current occupational status: retired Travel in the last 8 weeks: None adopted: No caregiver/support person: Yes foster care: No household members: children housing: house lives independently: No marital status: unknown Have you lived/traveled outside [place] in past 30 days?: No Contact w/someone who lives/traveled outside US past 30 days?: No Exposure to someone with infectious disease in past 14 days?: No Do you have a fever (greater than 100.4 F or 38 C)?: No Have you tested positive for COVID-19: No Exposed to someone with COVID-19 in past 14 days?: No Do you have a sore throat?: No Do you have a cough?: No Do you have any weakness?: No Are you experiencing any nausea/vomitting?: No Do you have any diarrhea?: No Are you experiencing any unusual bleeding?: No Do you have any muscle aches/pain?: No Do you have any abdominal pain?: No Are you experiencing loss of taste or smell?: No Other Medical History Have you received the Pneumonia Vaccine: Yes Review of Systems Review of Systems Review of systems (narrative): 13 point review of systems negative except as listed in HPI Meds Home Medications and Allergies Home Medications ?Medication ?Instructions ?Recorded ?Confirmed ?Type donepezil 5 mg tablet 5 mg PO HS #90 tabs 07/12/24 10/01/24 Rx cholecalciferol (vitamin D3) 50 50 mcg PO DAILY #90 caps 08/14/24 10/01/24 Rx mcg (2,000 unit) capsule mecobalamin (vitamin B12) 1,000 1,000 mcg PO DAILY #90 tabs 08/14/24 10/01/24 Rx mcg chewable tablet calcium carbonate 1,200 mg (2 x 600 mg calcium 08/17/24 10/01/24 Rx (1,500 mg)) PO DAILY #180 tabs denosumab 60 mg/mL subcutaneous 60 mg SQ [id number] #1 mL 08/17/24 10/01/24 Rx syringe (Prolia) New Prescriptions to Start Prescriptions: Allergies Allergy/AdvReac Type Severity Reaction Status Date / Time No Known Allergies Allergy Verified 09/15/24 09:34 Exam Data for Last 24 hours Vital signs and Labs for Last 24 Hours: Temp Pulse Resp BP Pulse Ox O2 Del Method 99.1 F 79 18 168/93 H 98 Room Air 10/01/24 17:03 10/01/24 22:00 10/01/24 17:03 10/01/24 22:00 10/01/24 22:00 10/01/24 18:30 Laboratory Results - last 24 hr 10/01/24 18:30: WBC 6.0, RBC 4.31, Hgb 12.8, Hct 40.0, MCV 92.8, MCH 29.7, MCHC 32.0, RDW 12.8, Plt Count 222, MPV 10.2, Neut % (Auto) 62.8, Lymph % (Auto) 23.4, [place] % (Auto) 8.2, Eos % (Auto) 4.2, Baso % (Auto) 1.2, Neut # (Auto) 3.7, Lymph # (Auto) 1.4, [place] # (Auto) 0.5, Eos # (Auto) 0.3, Baso # (Auto) 0.1, Sodium 140, Potassium 4.1, Chloride 108 H, Carbon Dioxide 26, Anion Gap 10.1, BUN 14, Creatinine 0.60, Estimated Creat Clear 53, Estimated GFR 99, Est GFR ( Amer) 120, Glucose 98, Calcium 7.9 L, Total Bilirubin 0.6, AST 33, ALT 25, Alkaline Phosphatase 83, Total Protein 6.7, Albumin 4.3, Globulin 2.4, Albumin/Globulin Ratio 1.8 I & O for Last 24 hours: Intake & Output 09/28/24 09/29/24 09/30/24 10/01/24 23:59 23:59 23:59 23:59 Weight 62.596 kg Constitutional Constitutional: no acute distress *Routine HEENT Exam Head: Present normocephalic Eye: Present EOMI and PERRL ENT: Present mucous membranes moist *Routine Neck Exam Neck: Present supple; Absent lymphadenopathy *Routine Respiratory Exam Respiratory: Present CTA bilaterally *Routine Cardiovascular Exam Cardiovascular: Present RRR *Routine Abdominal Exam Abdominal: Present soft and normoactive bowel sounds; Absent tenderness *Routine Rectal Exam Rectal:: deferred *Routine Genitalia Exam Genitalia:: deferred *Routine Extremities Exam Extremities: Absent cyanosis, clubbing or edema *Routine Skin Exam Skin: Present warm; Absent rash *Routine Neurological Exam Neurological: Present alert and oriented X3 Assessment and Plan *Assessment and plan (1) Parkinson disease: Problem Comment: dx around age 51 Status: Acute Category: Medical Code(s): G20.A1 - Parkinson's disease without dyskinesia, without mention of fluctuations (2) Insomnia: Status: Acute Category: Medical Code(s): G47.00 - Insomnia, unspecified (3) Alzheimer's dementia with behavioral disturbance: Problem Comment: dx in 07/2024 Status: Acute Category: Medical Code(s): G30.9 - Alzheimer's disease, unspecified; F02.818 - Dementia in other diseases classified elsewhere, unspecified severity, with other behavioral disturbance Plan * Dysphagia (likely neurogenic from untreated Parkinson?s) * Pertinent Info: New-onset difficulty swallowing today, localized to upper chest/lower neck with throat dryness per daughter. Untreated Parkinson?s (17 years) strongly suggests pharyngeal dysfunction; subtle resting tremor noted on exam. CT neck (10/01/24, 21:40) normal (no obstruction, collection), with incidental thyroid nodules (largest 1.4 cm). No intake today, dehydrated. Alzheimer?s may contribute but less likely primary. * IV fluids: NS 100 mL/h to hydrate overnight; monitor for overload (no cardiac history provided). * NPO status until swallow evaluation at [facility]; assess aspiration risk (no SOB now). * Will request swallow study at this facility if possible * Hyperthyroidism (subclinical) * Pertinent Info: TSH 0.30 (low), free T4 unavailable; no fever, palpitations, or overt thyrotoxicosis. Thyroid nodules on CT (largest 1.4 cm) incidental. Could contribute to dysphagia or dryness sensation. * Recheck TSH, free T4, T3 in AM prior to transfer to [facility]; no acute intervention (asymptomatic). * Endocrinology consult at [facility] for nodule evaluation (ultrasound, possible FNA) and hyperthyroidism management. * Dehydration * Pertinent Info: No intake today, dry mucous membranes, insufficient urine for UA. Labs otherwise normal (Cr 0.70 implied normal if prior, BUN not provided). Daughter notes frequent nighttime waking (possible nocturia). * Continue LR 50 mL/h until transfer; monitor urine output (lainez if needed for accuracy). * CMP in AM to assess electrolytes pre-transfer; replete PRN * Attempt small sips of water if swallow improves overnight; stop if choking occurs. * Alzheimer?s dementia * Pertinent Info: Limits history; No new confusion beyond baseline. Dysphagia more likely Parkinson?s-related. * Maintain safe environment (bed alarm, 1:1 sitter if agitated); monitor cognition q shift. * Defer neuropsychiatric eval to [facility] for dementia staging and overlap with Parkinson?s. * Possible UTI (per daughter?s concern) * Pertinent Info: Frequent nighttime waking, no dysuria, fever, or UA (insufficient sample). CT neck/labs without infectious signs (WBC not provided, assume normal per ?unremarkable save TSH?). * Retry UA/clean catch in AM if urine output increases; defer empiric antibiotics (no fever, normal CT). * Blood cultures x2 if fever develops overnight; low suspicion now. * Supportive care * No DVT prophylaxis (mobile, short stay pre-transfer). * Pain/comfort: Acetaminophen 650 mg PO/NY q6h PRN (avoid narcotics with Parkinson?s/dementia). * Family (daughter) updated; confirm Parkinson?s diagnosis details (e.g., records from 17 years ago) for [facility]. Disposition: The patient will be admitted to the medical floor at [facility] overnight for stabilization of dysphagia (likely Parkinson?s-related), h ydration, and monitoring, with transfer to [facility] scheduled for the morning of 10/02/24 (e.g., ~08:00) due to lack of on-site neurology and unclear dysphagia etiology. [facility] will assume care for neurology evaluation (swallow study, Parkinson?s management), endocrinology (thyroid nodules/hyperthyroidism), and further workup. Anticipated stay here is <12 hours, with discharge/transfer once transport is arranged. ICU not indicated (stable, no respiratory distress). Goals of care discussion with daughter if swallowing deteriorates or aspiration occurs pre-transfer; DNR status to be clarified at [facility] given comorbidities.
--- NOTE | 2024-10-01 23:42 | PC.NURSE ---
re port given to Candi RN on the floor, pt going to floor at this time.
--- NOTE | 2024-10-01 23:46 | PC.NURSE ---
Patient arrived to floor via wheelchair from ED at 23:45.
[2024-10-01] MEDS: LACTATED RINGERS 1000ML 1,000 ML 50 ML IV (23:51)
[2024-10-02] VITALS: O2SAT 99
[2024-10-02 03:47] LABS: Microscopic, Urine URINE MICROSCOPIC (MICROSCOPIC)
[2024-10-02 03:50] LABS: Appearance,Urine CLEAR (Clear); Bilirubin,Urine Negative (Negative); Blood, Urine TRACE-I (Negative); Color,Urine YELLOW (Yellow); Glucose,Urine (UA) Negative (Negative); Ketones,Urine 1+ (Negative); Leukocyte Esterase,Urine 2+ (Negative); Nitrate,Urine Negative (Negative); Protein,Urine Negative (Negative); Specific Gravity, Urine 1.015 (1.005-1.030); Urobilinogen,Urine 0.2 EU/dl (0.2)
[2024-10-02 04:00] VITALS: BP 136/84; PULSE 73; RESP 16; TEMP 36.7; O2SAT 98; BMI 23.5
[2024-10-02 04:02] LABS: Bacteria,Urine 1+ /lpf; Mucus,Urine 1+ /lpf
[2024-10-02 06:41] LABS: Basophils # 0.1 K/mm3 (0-0.2); Eosinophils # 0.2 K/mm3 (0.0-0.4); Eosinophils % 3.5 % (0.1-12.0); Hematocrit 36.4 % (37.0-47.0); Lymphocytes # 1.2 K/mm3 (0.7-4.5); Lymphocytes % 22.5 % (10-50); Mean Corpuscular HGB Conc 31.3 g/dL (31.8-35.4); Mean Corpuscular Volume 92.6 fl (81-99); Mean Platelet Volume 10.2 fl (7.4-10.4); Monocytes # 0.5 K/mm3 (0.1-1.0); Monocytes % 8.9 % (1.7-9.3); Neutrophils # 3.3 K/mm3 (1.8-7.8); Neutrophils % 63.9 % (37.0-80.0); Platelet Count 178 K/mm3 (142-424); Red Blood Count 3.93 M/mm3 (4.20-5.40); Red Cell Distribution Width 12.7 % (11.5-17.5); White Blood Count 5.2 K/mm3 (4.8-10.8)
[2024-10-02 06:58] LABS: Hemoglobin 11.5 g/dL (12.2-16.2)
[2024-10-02 07:03] LABS: Anion Gap 7.6 mEq/L (5-15); Blood Urea Nitrogen 11 mg/dl (7-17); Calcium 7.5 mg/dl (8.4-10.2); Carbon Dioxide 25 mmol/L (22.0-30.0); Chloride 110 mmol/L (98-107); Creatinine Clearance Estimated 54 mL/min (50-200); Estimated Glomerular Filt Rate 123 ml/min (>60); GFR (African American) 148 ML/MIN (>60); Glucose 84 mg/dl (74-100); Potassium 3.6 mmoL/L (3.5-5.1); Sodium 139 mmol/L (136-145)
[2024-10-02 08:00] VITALS: BP 145/77; PULSE 72; RESP 18; TEMP 36.8; O2SAT 98
--- NOTE | 2024-10-02 08:02 | MR_ITS ---
FINAL REPORT TECHNIQUE: Multiplanar MR without contrast CLINICAL HISTORY: dysphaga COMPARISON: None FINDINGS: MRI HEAD Diffusion sequences show no signal abnormality to indicate acute infarct. Scattered periventricular white matter signal changes are seen compatible with mild chronic ischemic gliotic disease. Mild generalized atrophy is present. No mass, hemorrhage or edema is seen. Ventricles are normal. Major vascular flow voids are intact. The brainstem is of normal MR appearance. IMPRESSION: 1. No mass, acute infarct or hydrocephalus, the brainstem has a normal MR appearance. 2. Mild atrophy and chronic ischemic white matter changes Reviewed, Interpreted and Dictated by Mony Maki MD Transcribed by Lesa White Authenticated and [facility]
--- NOTE | 2024-10-02 08:19 | HMH.PHAINT1 ---
Pharmacy Intervention Comments: MEDICATION RECONCILIATION COMPLETED ON PATIENT USING EXTERNAL FILL HISTORY FROM PHARMACY AND LIST FROM PCP OFFICE. -AURELIANO MALDONADO, GAVIOTAD
--- NOTE | 2024-10-02 08:28 | PC.NURSE ---
rate changed on IV fluids at this time from 50/hr to 80/hr
--- NOTE | 2024-10-02 09:10 | HMH.PTEV ---
Physical Therapy Evaluation Rehab PT IP Evaluation Start: 10/01/24 23:12 Freq: ONCE Status: Active Protocol: Document 10/02/24 09:04 [email or web address] (Rec: 10/02/24 09:10 RANDAL [id number]) Subjective/History History History Pt is a prior outpatient PT patient of mine. She lives in a home with her daughter who provides assistance and care. Per H&P, The patient is a 68-year-old female with a past medical history of Parkinson?s disease (diagnosed 17 years ago, untreated) and Alzheimer?s dementia, who presented to the emergency department (ED) at [facility] with difficulty swallowing starting today. She is accompanied by her daughter, who provides history at bedside. The daughter reports the patient has been pointing to her upper chest and lower neck to describe a sensation of throat dryness and difficulty breathing/ swallowing, with symptoms severe enough to prevent food or drink intake today. The daughter also notes increased nighttime waking, raising concern for a possible urinary tract infection (UTI). EMS triage notes, recalled by the RN, describe dysphagia over the past few days and reduced oral intake, though my history confirms onset today. On arrival, she was alert but limited in providing history due to dementia; my exam revealed no fever, chills, chest pain, abdominal pain, nausea, or vomiting, but noted dry mucous membranes ( dehydration) and subtle resting tremor consistent with untreated Parkinson?s, without respiratory distress. Labs were unremarkable except for a TSH of 0.30 (low, suggesting hyperthyroidism); insufficient urine output precluded urinalysis. CT head was normal. CT soft tissue neck with contrast (10/01/24, 21 :40) showed no rim-enhancing fluid collection, lymphadenopathy, or swelling, but identified incidental thyroid nodules (largest 1.4 cm) and mild degenerative disc disease. Differential diagnosis includes neurogenic dysphagia from untreated Parkinson?s (most likely, given 17-year history), Alzheimer?s progression, thyroid-related dysphagia ( nodules or hyperthyroidism), or less likely esophageal obstruction/infection (normal CT, no fever). Initial ED interventions were not specified. Given her untreated Parkinson?s as a probable cause of dysphagia, lack of on-site neurology, and need for specialty evaluation , transfer to [facility] was arranged for the morning of 10/02/24. The patient and daughter agreed to transfer after discussion. Subjective Subjective Pt is orientedx2. Pt is unable to provide full subjective history. She reports that she lives in a home with her daughter. She reports that she has not had any falls, but she feels like she has gotten a little more unsteady recently. She reports that she is not using a walker or cane . Pt reports that her daughter does help her with most mobility and dressing. New diagnosis of cancer in past 12 No months? Rehab PT IP Eval Objective Appearance Patient Behavior Appropriate,Patient Baseline Patient Orientation Person,Place Difficulty following instructions none Speech Pattern Clear,Patient Baseline Ambulation Patient Able to Ambulate Yes Ambulation Observation IP General Gait Pattern Observation Shuffling Step Ambulation Distance (feet) 15 Ambulation Assistive Device None Ambulation Ability Minimal x 1 (25% assist) Balance Ability to Arise Able, uses arms to help Sitting Balance Steady, safe Standing Balance Steady, wide stance Dynamic Sitting Balance Ability Good Dynamic Standing Balance Ability Fair Transfers Bed Transfer Ability Supervision/Stand by Chair Transfer Ability Minimal x 1 (25% assist) Sit to Stand Bed Transfer Ability Minimal x 1 (25% assist) Rehab PT IP prob,goals,plan Problems Date of Evaluation: 10/02/24 PT IP Problems Bed Mobility,Transfers,Gait, Balance,Self care,Safety Rehab Potential Rehab Potential Fair Equipment Needs Assistive Devices Standard Walker Plan PT Intervention Plan Bed Mobility,Transfers,Gait, Balance,Self care,Safety, Therapeutic Exercise PT Plan Frequency BID Duration LOS Discharge Goals Bed Transfer Ability Supervision/Stand by Sit to Stand Chair Transfer Ability Supervision/Stand by Ambulation Assistive Device Rolling Walker Ambulation Distance (feet) 50 Discharge Plan PT Discharge Plan PT is recommending home with 24hr family assistance at this time. Pt would also benefit from the use of a FWW, presently. Skilled PT is recommended for this pt during her acute stay. Eval Complexity Eval Charge Codes 91475 - Moderate Complexity PHYSICIAN CERTIFICATION: I certify the specified therapy services for Anamaria Kelly are required, authorized, and reviewed every 30 days.
--- NOTE | 2024-10-02 10:18 | PC.NURSE ---
PT LEFT FLOOR FOR MRI
[2024-10-02] MEDS: CEFTRIAXONE 1 GM 1 GM in 0.9 % SODIUM CHLORIDE 50 ML IV (11:09)
--- NOTE | 2024-10-02 12:03 | SW/DCPLANNER ---
Addendum entered by Shasha Osborne 10/03/24 14:50: Per Rosa w/ [facility] patient has been accepted for services. Addendum entered by Shasha Osborne 10/03/24 13:10: Patient information/order has been faxed to [facility]. Original Note: I spoke w/ this patient and her daughter (Buffy) this AM regarding plans once medically stable for discharge. Per PT/OT patient is safe to return home w/ family and home health services. Patient currently resides w/ Buffy and her . Patient/Buffy are agreeable to home health services (no preference). I will arrange home health services once patient is medically stable for discharge from [facility].
[2024-10-02] MEDS: ONDANSETRON 4MG/2ML VIAL 4 MG IV (12:33)
--- NOTE | 2024-10-02 15:30 | EXP.DC.SUM ---
General Admission date:: 10/01/24 HPI HPI HPI: The patient is a 68-year-old female with a past medical history of Parkinson?s disease (diagnosed 17 years ago, untreated) and Alzheimer?s dementia, who presented to the emergency department (ED) at [facility] with difficulty swallowing starting today. She is accompanied by her daughter, who provides history at bedside. The daughter reports the patient has been pointing to her upper chest and lower neck to describe a sensation of throat dryness and difficulty breathing/swallowing, with symptoms severe enough to prevent food or drink intake today. The daughter also notes increased nighttime waking, raising concern for a possible urinary tract infection (UTI). EMS triage notes, recalled by the RN, describe dysphagia over the past few days and reduced oral intake, though my history confirms onset today. On arrival, she was alert but limited in providing history due to dementia; my exam revealed no fever, chills, chest pain, abdominal pain, nausea, or vomiting, but noted dry mucous membranes (dehydration) and subtle resting tremor consistent with untreated Parkinson?s, without respiratory distress. Labs were unremarkable except for a TSH of 0.30 (low, suggesting hyperthyroidism); insufficient urine output precluded urinalysis. CT head was normal. CT soft tissue neck with contrast (10/01/24, 21:40) showed no rim-enhancing fluid collection, lymphadenopathy, or swelling, but identified incidental thyroid nodules (largest 1.4 cm) and mild degenerative disc disease. Differential diagnosis includes neurogenic dysphagia from untreated Parkinson?s (most likely, given 17-year history), Alzheimer?s progression, thyroid-related dysphagia (nodules or hyperthyroidism), or less likely esophageal obstruction/infection (normal CT, no fever). Initial ED interventions were not specified. Given her untreated Parkinson?s as a probable cause of dysphagia, lack of on-site neurology, and need for specialty evaluation, transfer to [facility] was arranged for the morning of 10/02/24. The patient and daughter agreed to transfer after discussion. Hospital Course Hospital Course Hospital Course: Anamaria Kelly is a 68-year-old female with a medical history significant for Parkinson's disease who presented with worsening dysphagia and was admitted for stroke rule out. #Parkinson's disease #Dysphagia ? Brain MRI did not show acute stroke, but showed mild atrophy with chronic ischemic changes. ? Unfortunately, I do believe patient's Parkinson's disease continues to progress and worsening dysphagia is a sequela of the disease. ? At this time, patient is able to tolerate mechanical soft diet. Speech therapy consulted, but unable to evaluate patient today. ? Referred to outpatient neurology and speech therapy. Currently on not not on dopamine therapy. #UTI ? Discharged with cefdinir for 3 more days. Total time spent on discharge: 32 minutes on chart review, counseling, documentation, and direct care with patient. Exam Data for Last 24 hours Vital signs and Labs for Last 24 Hours: Temp Pulse Resp BP Pulse Ox O2 Del Method 98.3 F 72 18 145/77 H 98 Room Air 10/02/24 08:00 10/02/24 08:00 10/02/24 08:00 10/02/24 08:00 10/02/24 08:00 10/02/24 15:00 Laboratory Results - last 24 hr 10/01/24 18:30: WBC 6.0, RBC 4.31, Hgb 12.8, Hct 40.0, MCV 92.8, MCH 29.7, MCHC 32.0, RDW 12.8, Plt Count 222, MPV 10.2, Neut % (Auto) 62.8, Lymph % (Auto) 23.4, [place] % (Auto) 8.2, Eos % (Auto) 4.2, Baso % (Auto) 1.2, Neut # (Auto) 3.7, Lymph # (Auto) 1.4, [place]field # (Auto) 0.5, Eos # (Auto) 0.3, Baso # (Auto) 0.1, Sodium 140, Potassium 4.1, Chloride 108 H, Carbon Dioxide 26, Anion Gap 10.1, BUN 14, Creatinine 0.60, Estimated Creat Clear 53, Estimated GFR 99, Est GFR ( Amer) 120, Glucose 98, Calcium 7.9 L, Total Bilirubin 0.6, AST 33, ALT 25, Alkaline Phosphatase 83, Total Protein 6.7, Albumin 4.3, Globulin 2.4, Albumin/Globulin Ratio 1.8, TSH 0.30 L, Free T4 1.48 10/02/24 03:40: Urine Color Yellow, Urine Appearance Clear, Urine pH 7.0, Ur Specific [place] 1.015, Urine Protein Negative, Urine Glucose (UA) Negative, Urine Ketones 1+, Urine Blood Trace-i, Urine Nitrate Negative, Urine Bilirubin Negative, Urine Urobilinogen 0.2, Ur Leukocyte Esterase 2+ A, Urine RBC 5-10, Urine WBC 10-20, Ur Squamous Epith Cells 3-5, Urine Bacteria 1+, Urine Mucus 1+ 10/02/24 05:50: WBC 5.2, RBC 3.93 L, Hgb 11.5 L D, Hct 36.4 L, MCV 92.6, MCH 29.0, MCHC 31.3 L, RDW 12.7, Plt Count 178, MPV 10.2, Neut % (Auto) 63.9, Lymph % (Auto) 22.5, Whit[place] % (Auto) 8.9, Eos % (Auto) 3.5, Baso % (Auto) 1.0, Neut # (Auto) 3.3, Lymph # (Auto) 1.2, Whitfield # (Auto) 0.5, Eos # (Auto) 0.2, Baso # (Auto) 0.1, Sodium 139, Potassium 3.6, Chloride 110 H, Carbon Dioxide 25, Anion Gap 7.6, BUN 11, Creatinine 0.50 L, Estimated Creat Clear 54, Estimated GFR 123, Est GFR ( Amer) 148 D, Glucose 84, Calcium 7.5 L, Magnesium 2.0 I & O for Last 24 hours: Intake & Output 09/29/24 09/30/24 10/01/24 10/02/24 23:59 23:59 23:59 23:59 Intake Total 628 / 628 Output Total 0 / 0 Balance 628 / 628 Weight 64.047 kg 64.047 kg Constitutional Constitutional: no acute distress *Routine HEENT Exam Head: Present normocephalic Eye: Present EOMI and PERRL ENT: Present mucous membranes moist *Routine Neck Exam Neck: Present supple; Absent lymphadenopathy *Routine Respiratory Exam Respiratory: Present CTA bilaterally *Routine Cardiovascular Exam Cardiovascular: Present RRR *Routine Abdominal Exam Abdominal: Present soft and normoactive bowel sounds; Absent tenderness *Routine Extremities Exam Extremities: Absent cyanosis, clubbing or edema *Routine Skin Exam Skin: Present warm; Absent rash *Routine Neurological Exam Neurological: Present alert Results Data Completed and Pending Labs on day of discharge: Labs from last 24 hours 10/02/24 10/02/24 10/01/24 05:50 03:40 18:30 WBC 5.2 6.0 RBC 3.93 L 4.31 Hgb 11.5 L D 12.8 Hct 36.4 L 40.0 MCV 92.6 92.8 MCH 29.0 29.7 MCHC 31.3 L 32.0 RDW 12.7 12.8 Plt Count 178 222 MPV 10.2 10.2 Neut % (Auto) 63.9 62.8 Lymph % (Auto) 22.5 23.4 Whitfield % (Auto) 8.9 8.2 Eos % (Auto) 3.5 4.2 Baso % (Auto) 1.0 1.2 Neut # (Auto) 3.3 3.7 Lymph # (Auto) 1.2 1.4 Whitfield # (Auto) 0.5 0.5 Eos # (Auto) 0.2 0.3 Baso # (Auto) 0.1 0.1 Sodium 139 140 Potassium 3.6 4.1 Chloride 110 H 108 H Carbon Dioxide 25 26 Anion Gap 7.6 10.1 BUN 11 14 Creatinine 0.50 L 0.60 Estimated Creat Clear 54 53 Estimated GFR 123 99 Est GFR ( Amer) 148 D 120 Glucose 84 98 Calcium 7.5 L 7.9 L Magnesium 2.0 Total Bilirubin 0.6 AST 33 ALT 25 Alkaline Phosphatase 83 Total Protein 6.7 Albumin 4.3 Globulin 2.4 Albumin/Globulin Ratio 1.8 TSH 0.30 L Free T4 1.48 Urine Color Yellow Urine Appearance Clear Urine pH 7.0 Ur Specific [place] 1.015 Urine Protein Negative Urine Glucose (UA) Negative Urine Ketones 1+ Urine Blood Trace-i Urine Nitrate Negative Urine Bilirubin Negative Urine Urobilinogen 0.2 Ur Leukocyte Esterase 2+ A Urine RBC 5-10 Urine WBC 10-20 Ur Squamous Epith Cells 3-5 Urine Bacteria 1+ Urine Mucus 1+ DS: Diagnosis Discharge Diagnosis (1) Parkinson disease: Status: Acute Code(s): G20.A1 - Parkinson's disease without dyskinesia, without mention of fluctuations Problem details: dx around age 51 (2) Insomnia: Status: Acute Code(s): G47.00 - Insomnia, unspecified (3) Alzheimer's dementia with behavioral disturbance: Status: Acute Code(s): G30.9 - Alzheimer's disease, unspecified; F02.818 - Dementia in other diseases classified elsewhere, unspecified severity, with other behavioral disturbance Problem details: dx in 07/2024 Meds Home Medications and Allergies Home Medications ?Medication ?Instructions ?Recorded ?Confirmed ?Type cholecalciferol (vitamin D3) 50 50 mcg PO DAILY #90 caps 08/14/24 11/01/24 Rx mcg (2,000 unit) capsule mecobalamin (vitamin B12) 1,000 1,000 mcg PO DAILY #90 tabs 08/14/24 11/01/24 Rx mcg chewable tablet calcium carbonate 1,200 mg (2 x 600 mg calcium 08/17/24 11/01/24 Rx (1,500 mg)) PO DAILY #180 tabs denosumab 60 mg/mL subcutaneous 60 mg SQ [id number] #1 mL 08/17/24 11/01/24 Rx syringe (Prolia) polyethylene glycol 3350 17 17 g PO DAILY PRN constipation 10/16/24 11/01/24 Rx gram/dose oral powder (Miralax) #510 grams carbidopa 25 mg-levodopa 100 mg 3 tab PO DAILY 11/01/24 11/01/24 History tablet donepezil 10 mg tablet 10 mg PO DAILY 11/01/24 11/01/24 History megestrol 400 mg/10 mL (10 mL) 400 mg PO DAILY 11/01/24 11/01/24 History oral suspension memantine 10 mg tablet 10 mg PO BID 11/01/24 11/01/24 History New Prescriptions to Start Prescriptions: Allergies Allergy/AdvReac Type Severity Reaction Status Date / Time [id number] Reductase AdvReac Verified 11/01/24 13:05 Inhibitor Discharge Plan Disposition Patient Disposition: Home, Self-Care Condition: Fair Follow up Plan Follow up with: Case Perla [Referring] - Enter time for follow up (Physicians office will call patient to schedule appointment with nuerology. ) Gisell Recinos APRN [Primary Care Provider] - 10/09/24 1:30 pm Prescriptions/Medication Reconciliation: Continued cholecalciferol (vitamin D3) 50 mcg (2,000 unit) capsule 50 mcg PO DAILY Qty: 90 3RF mecobalamin (vitamin B12) 1,000 mcg tablet,chewable 1,000 mcg PO DAILY Qty: 90 3RF calcium carbonate 600 mg calcium (1,500 mg) tablet 1,200 mg PO DAILY Qty: 180 3RF Prolia 60 mg/mL syringe 60 mg SQ [id number] Qty: 1 1RF No Action donepezil 10 mg tablet 10 mg PO DAILY Patient Comments: TAKE 1 TABLET BY MOUTH ONCE DAILY AT BEDTIME carbidopa-levodopa 25-100 mg tablet 3 tab PO DAILY Patient Comments: TAKE 1/2 (ONE-HALF) TABLET BY MOUTH ONCE DAILY FOR 7 DAYS, THEN 1/2 (ONE-HALF) TWICE DAILY FOR 7 DAYS, THEN 1/2 (ONE-HALF) THREE TIMES DAILY FOR 7 DAYS, THEN 1 THREE TIMES DAILY memantine 10 mg tablet 10 mg PO BID Patient Comments: TAKE 1 TABLET BY MOUTH TWICE DAILY megestrol 400 mg/10 mL (10 mL) suspension 400 mg PO DAILY polyethylene glycol 3350 [Miralax] 17 gram/dose powder 17 g PO DAILY PRN (Reason: constipation) Qty: 510 0RF Other Ambulatory Orders: Speech Therapy Eval Request (Routine) Timeframe: 2 Weeks Facility: [facility] - Location: Speech Therapy Ordered By: Eduardo Greer Problem Reconciliation Problems Reviewed?: Yes Patient Discharge Instructions Patient Instructions: DI for Urinary Tract Infection (UTI), DI for Esophageal Dysphagia Print Language: Togolese Providers Primary Care Provider: Gisell Recinos Admit Provider: Eduardo Greer Attending Provider: Eduardo Greer
--- NOTE | 2024-10-03 10:30 | SW/DCPLANNER ---
Spoke with patients daughter on the phone. Patients daughter stated that her mom is doing farely well. Daughter stated that they are aware of one appointment but havent heard from the neurology office of the time and day i called the office and they needed some of the patients records. I sent the records to the neurology office. Spoke with the daughter and stated that i would give the neurology office till Wednesday and if they havent heard from them to call and see if the have looked over and sat a time and day to be seen. Patients daughter stated that they were able to get her new medicine picked up. Patients daughter stated that they have no questions or concerns at this time. Lien Polo
== END 2024-10-02 16:30 | disposition home or self-care (01) ==
LOC: ER 17:11 → 2ND 23:22
PROVIDERS: Nurse Practitioner Family; Admitting Provider Student in an Organized Health Care Education/Training Program; Emergency Provider Student in an Organized Health Care Education/Training Program; PCP Nurse Practitioner Family; Visit Provider Student in an Organized Health Care Education/Training Program
DX: R13.19 Other dysphagia (principal); G20.A1 Parkinson's disease without dyskinesia, without mention of fluctuations; G47.00 Insomnia, unspecified; G30.9 Alzheimer's disease, unspecified; F02.818 Dementia in other diseases classified elsewhere, unspecified severity, with other behavioral disturbance; Z88.8 Allergy status to other drugs, medicaments and biological substances; Z79.899 Other long term (current) drug therapy; I10 Essential (primary) hypertension; E78.5 Hyperlipidemia, unspecified; E86.0 Dehydration; E05.90 Thyrotoxicosis, unspecified without thyrotoxic crisis or storm; N39.0 Urinary tract infection, site not specified
CPT/HCPCS: 36415; 70360; 70450; 70491; 70551; 71045; 80048; 80053; 81001; 83735; 84439; 84443; 85025; 87086; 93005; 97116; 97162; 99285; G0378; J0696; J2405; J7120; Q9967

== ENCOUNTER 2024-10-13 14:47 | Outpatient (CLI) | payer MEDICARE, SELFPAY ==
--- NOTE | 2024-10-13 14:50 | US_ITS ---
FINAL REPORT TECHNIQUE: Real-time grayscale and color ultrasound of the thyroid was performed. CLINICAL HISTORY: hyperthyroid, dysphagia COMPARISON: None FINDINGS: The thyroid gland measures 56 x 20 x 20 mm on the right and 53 x 24 x 16 mm on the left. The isthmus measures 3 mm. The parenchyma is unremarkable . Nodules: There are multiple nodules in the bilateral thyroid lobes. The dominant nodule in the upper right pole measures 17 x 11 mm, TR 3. Dominant nodule in the lower pole on the right measures 17 x 10 mm, TR 3. On the left is a 7 mm TR 4 nodule in the superior pole. There is also a 9 mm TR 4 nodule in the lower pole of the left lobe. In the mid left lobe is a 16 x 11 mm, taller than wide, TR 4 nodule. IMPRESSION: Left 16 mm TR 4 nodule, taller than wide. FNA recommended per TI-RADS criteria. Reviewed, Interpreted and Dictated by Nikolay Vicente MD Transcribed by Yumiko Foley Authenticated and [facility][1]
== END 2024-10-13 23:59 | disposition home or self-care (01) ==
LOC: RAD 14:47
PROVIDERS: PCP Nurse Practitioner Family; Visit Provider Nurse Practitioner Family
DX: E05.90 Thyrotoxicosis, unspecified without thyrotoxic crisis or storm (principal); R13.10 Dysphagia, unspecified
CPT/HCPCS: 76536

== ENCOUNTER 2024-10-16 06:30 | Emergency (ER) | payer MEDICARE, SELFPAY ==
[2024-10-16] VITALS (16 sets, daily range): BP systolic 132–181; BP diastolic 60–104; PULSE 64–89; RESP 14–21; TEMP 36.6–36.8; O2SAT 96–99; BMI 24.4
--- NOTE | 2024-10-16 07:01 | CT_ITS ---
FINAL REPORT TECHNIQUE: IV contrast enhanced exam. Coronal and sagittal images were obtained and reviewed. This study was performed with techniques to keep radiation doses as low as reasonably achievable, (ALARA). Individualized dose reduction techniques using automated exposure control or adjustment of mA and/or kV according to the patient''s size were employed. CLINICAL HISTORY: generalized abd pain, constipation COMPARISON: None FINDINGS: Abdomen: No acute density is seen within the lung bases. The gallbladder is unremarkable. Benign right renal cyst. The remaining abdominal organs are unremarkable. Moderate diffuse fecal impaction. No bowel obstruction is present. There is no free air. No fluid collection is seen. There is no adenopathy. Pelvis: The appendix is nonvisualized. Fecal impaction with rectal vault distended up to 8 cm. The uterus and urinary bladder unremarkable. There is no free fluid. No pelvic mass is seen. IMPRESSION: Moderate diffuse fecal impaction without bowel obstruction or acute inflammatory change. Reviewed, Interpreted and Dictated by Mony Maki MD Transcribed by Yumiko Foley Authenticated and [facility]
--- NOTE | 2024-10-16 07:06 | CT_ITS ---
FINAL REPORT TECHNIQUE: Thin section axial CT images with coronal and sagittal reformats were performed through neck after the administration of IV contrast. This study was performed with techniques to keep radiation doses as low as reasonably achievable, (ALARA). CLINICAL HISTORY: worsening swallowing FINDINGS: Salivary glands are normal. Visualized paranasal sinuses are clear. Larynx is normal. There is no adenopathy. Thyroid is mildly enlarged. There are at least 2 right thyroid lobe lesions noted with a 12 mm lesion in the superior right thyroid and 11 mm lesion in the inferior right thyroid. IMPRESSION: Mild thyromegaly with 2 right thyroid lobe nodules. Consider follow-up thyroid ultrasound. No soft tissue mass or adenopathy. Reviewed, Interpreted and Dictated by Mony Maki MD Transcribed by Cyndie Barragan Authenticated and [facility]
[2024-10-16 07:17] LABS: Basophils # 0.1 K/mm3 (0-0.2); Basophils % 0.9 % (0.1-2.0); Eosinophils # 0.2 K/mm3 (0.0-0.4); Eosinophils % 2.7 % (0.1-12.0); Hematocrit 39.1 % (37.0-47.0); Hemoglobin 12.6 g/dL (12.2-16.2); Lymphocytes # 0.9 K/mm3 (0.7-4.5); Lymphocytes % 13.6 % (10-50); Mean Corpuscular HGB Conc 32.2 g/dL (31.8-35.4); Mean Corpuscular Hemoglobin 29.3 pg (27.0-31.2); Mean Corpuscular Volume 90.9 fl (81-99); Mean Platelet Volume 10.1 fl (7.4-10.4); Monocytes # 0.5 K/mm3 (0.1-1.0); Monocytes % 7.2 % (1.7-9.3); Neutrophils # 4.8 K/mm3 (1.8-7.8); Neutrophils % 75.3 % (37.0-80.0); Platelet Count 221 K/mm3 (142-424); Red Cell Distribution Width 12.9 % (11.5-17.5); White Blood Count 6.4 K/mm3 (4.8-10.8)
[2024-10-16 07:20] LABS: Albumin Level 4.2 g/dl (3.5-5.0); Chloride 106 mmol/L (98-107); Potassium 3.2 mmoL/L (3.5-5.1); Sodium 138 mmol/L (136-145)
[2024-10-16 07:23] LABS: Alanine Aminotransferase 20 U/L (12-78); Alkaline Phosphatase 76 U/L (38-126); Anion Gap 8.2 mEq/L (5-15); Aspartate Amino Transferase 29 U/L (14-36); Bilirubin,Total 0.6 mg/dl (0.2-1.3); Blood Urea Nitrogen 10 mg/dl (7-17); Calcium 8.4 mg/dl (8.4-10.2); Carbon Dioxide 27 mmol/L (22.0-30.0); Creatinine Clearance Estimated 53 mL/min (50-200); Estimated Glomerular Filt Rate 123 ml/min (>60); GFR (African American) 148 ML/MIN (>60); Globulin 2.1 g/dL (1.3-3.2); Glucose 89 mg/dl (74-100); Lipase 70 U/L (23-300); Phosphorous 2.4 mg/dl (2.5-4.5); Total Protein,Serum 6.3 g/dl (6.3-8.2)
[2024-10-16 07:24] LABS: Magnesium 1.8 mg/dl (1.6-2.3)
--- NOTE | 2024-10-16 07:31 | [facility].EDGENADL ---
Discharge Plan Disposition Patient Disposition: Home, Self-Care Prescriptions Prescriptions: New polyethylene glycol 3350 [Miralax] 17 gram/dose powder 17 g PO DAILY PRN (Reason: constipation) Qty: 510 0RF Boost Max 0.09 gram- 0.5 kcal/mL liquid 1 ea PO DAILY PRN (Reason: meal supplementation) Qty: 3900 1RF No Action donepezil 5 mg tablet 5 mg PO HS Qty: 90 3RF cefdinir 300 mg capsule 300 mg PO BID 7 Days Qty: 14 0RF cholecalciferol (vitamin D3) 50 mcg (2,000 unit) capsule 50 mcg PO DAILY Qty: 90 3RF mecobalamin (vitamin B12) 1,000 mcg tablet,chewable 1,000 mcg PO DAILY Qty: 90 3RF calcium carbonate 600 mg calcium (1,500 mg) tablet 1,200 mg PO DAILY Qty: 180 3RF Prolia 60 mg/mL syringe 60 mg SQ [id number] Qty: 1 1RF Referrals Follow up/Referrals: Cecile Goldstein APRN [Nurse Practitioner] - See instructions Gisell Recinos APRN [Primary Care Provider] - See instructions Activity Restrictions/Add. Instructions Additional Instructions/Restrictions: You were evaluated in the emergency department today. For the difficulty swallowing, speech therapy recommends mechanical soft diet. You have enlarged thyroid with thyroid nodules. You also had fecal impaction, for which we administered GoLytely and an enema. We had good success here with this. We feel that the difficulty swallowing is likely a result of advanced Parkinson's disease/dementia. It is likely that these symptoms will progress/worsen as the disease progresses, which unfortunately appears to be happening very rapidly. Please follow-up very closely outpatient with speech therapy as well as with your neurology team for further recommendations. Follow-up closely with primary care provider as well. If you wish for evaluation of the thyroid, you may follow-up with ENT and endocrinology, however I do not feel that this is likely causing the symptoms of dysphagia at this time. 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 Please titrate to soft stools. Return to the emergency department for any new or worsening symptoms. Clinical Impressions Clinical Impression: Fecal impaction, Dysphagia, Constipation, Declining functional status, Hypokalemia, Hypophosphatasia, Thyroid nodule, Thyromegaly, Hyperthyroidism Instructions Patient Instructions: Soft Diet, DI for Parkinson Disease, DI for Esophageal Dysphagia, DI for Oropharyngeal Dysphagia, DI for Advanced Alzheimer Dementia Print Language Print Language: Cameroonian Discharge ED Provider: Ethan Pace General Adult HPI <Ethan Pace MD - Last Filed: 10/16/24 07:38> General Chief complaint: Recheck/Abnormal Lab/Rx Stated complaint: SOA, difficulty swallowing, constipation Time Seen by Provider: 10/16/24 06:35 Mode of Arrival: Wheelchair Source of Information: Relative Description of Symptoms (Recalled from ER Triage Doc. by RN): Pt presents to ED for constipation and pain. Daughter states pt found out she has nodules in her throat on Wednesday and the pt can not swallow now. Daughter is concerned that pt is dehydrated since she's not eating and drinking normally. Pt is A&O*4 at this time but is very drowsy. Daughter states pt has Parkinson's and the neurologist changed her medicines approx 5 days ago. Daughter states the new meds are more sedating and that's why pt is so sleepy. Pt is not a good historian however daughter can answer most questions. History of Present Illness HPI narrative: 68-year-old female with recent diagnosis of Parkinson's and initiation of donepezil amantadine and carbidopa levodopa approximately 1 week ago presents for worsening p.o. intake and abdominal pain. Patient had a CT scan and ultrasound done within the last few weeks that show multiple thyroid nodules. Patient's swallowing has been worsening over the last month, and is significantly worsened over the last week. Patient seems more sedated after these new medications as well. Patient is currently on a liquid diet because she cannot swallow any solids, but even that is difficult for her and daughter is concerned that she is dehydrated. Her tremors do seem improved after initiation of medications. Patient has dementia as well. They come to the ER tonight because patient is having fairly severe generalized abdominal pain. They think it is related to constipation as patient has not had a bowel movement for the last week. This is not normal for her. They are also concerned about the worsening swallowing and daughter thinks that the throat is harder than it was last time she had a CT scan. Patient is a poor historian. Related Data Previous Rx's ?Medication ?Instructions ?Recorded donepezil 5 mg tablet 5 mg PO HS #90 tabs 07/12/24 cholecalciferol (vitamin D3) 50 50 mcg PO DAILY #90 caps 08/14/24 mcg (2,000 unit) capsule mecobalamin (vitamin B12) 1,000 1,000 mcg PO DAILY #90 tabs 08/14/24 mcg chewable tablet calcium carbonate 1,200 mg (2 x 600 mg calcium 08/17/24 (1,500 mg)) PO DAILY #180 tabs denosumab 60 mg/mL subcutaneous 60 mg SQ [id number] #1 mL 08/17/24 syringe (Prolia) cefdinir 300 mg capsule 300 mg PO BID 7 days #14 caps 10/09/24 nutritional supplements 0.09 1 ea PO DAILY PRN meal 10/16/24 gram-0.5 kcal/mL oral liquid supplementation #3,900 mL (Boost Max) polyethylene glycol 3350 17 17 g PO DAILY PRN constipation 10/16/24 gram/dose oral powder (Miralax) #510 grams Allergies Allergy/AdvReac Type Severity Reaction Status Date / Time [id number] Reductase AdvReac Verified 10/09/24 13:28 Inhibitor [facility] <Ethan Pace MD - Last Filed: 10/16/24 07:38> [facility] Disclaimer: The information contained in this section may have been updated after the patient was seen, as this information can be updated by other users. Medical History Urinary tract infection Hyperlipidemia Alzheimer disease Dementia Surgical History History of cholecystectomy History of tonsillectomy Family History Other Cancer Cancer of kidney Parkinson disease Social History Smoking Status: Never smoker alcohol intake: never current occupational status: retired Travel in the last 8 weeks: None adopted: No caregiver/support person: Yes foster care: No household members: children housing: house lives independently: No marital status: unknown Have you lived/traveled outside [place] in past 30 days?: No Contact w/someone who lives/traveled outside US past 30 days?: No Exposure to someone with infectious disease in past 14 days?: No Do you have a fever (greater than 100.4 F or 38 C)?: No Have you tested positive for COVID-19: No Exposed to someone with COVID-19 in past 14 days?: No Do you have a sore throat?: No Do you have a cough?: No Do you have any weakness?: No Do you have any diarrhea?: No Are you experiencing any unusual bleeding?: No Do you have any muscle aches/pain?: No Do you have any abdominal pain?: No Are you experiencing loss of taste or smell?: No Other Medical History Have you received the Flu Vaccine for this season: No Have you received the Pneumonia Vaccine: Yes <Ethan Pace MD - Last Filed: 10/16/24 07:38> ROS Obtained: Yes All systems reviewed & no additional complaints except as documented Physical Exam <Ethan Pace MD - Last Filed: 10/16/24 07:38> General General appearance: alert and in no apparent distress Head Head exam: atraumatic and normocephalic Eye Eye exam: Present normal appearance, PERRL and EOMI ENT ENT exam: Present normal oropharynx and normal external ear exam Neck Neck exam: Present lymphadenopathy, thyromegaly and other (No erythema or tenderness, no significant submandibular fullness on my exam, though daughter reports it feels different) Chest Chest inspection: Present normal inspection and symmetric chest wall rise; Absent tenderness Respiratory Respiratory exam: Present normal lung sounds bilaterally; Absent respiratory distress Cardiovascular Cardiovascular exam: Present regular rate and normal rhythm Abdominal Exam Abdominal exam: Present soft and tenderness (Generalized); Absent distention or guarding Extremities Exam Extremities exam: Present normal inspection; Absent edema or joint swelling Back Exam Back exam: Present normal inspection; Absent tenderness Neurological Exam Neurological exam: Present alert, oriented X3 and other (Resting tremor noted) Psychiatric Psychiatric exam: Present normal affect and normal mood Skin Skin exam: Present warm, dry and normal color Lymphatic Lymphatic Findings: no adenopathy Medical Decision Making <Ethan Pace MD - Last Filed: 10/16/24 07:38> Medical Records Medical records reviewed: Yes I reviewed the patient's medical records. Screening: Per USPSTF and CDC recommendations, given the prevalence of disease in our region, it is our hospital?s policy to screen for HIV and viral Hepatitis for all patients aged 18 and over and those with ongoing risk factors. Francesco Inquiry Pt receiving controlled substance: No Francesco was queried for this patient: No Vital Signs: 10/16/24 06:52 10/16/24 07:00 10/16/24 07:30 Temperature 97.9 F Temperature Source Oral Pulse Rate 64 77 Pulse Rate [Left] 82 Respiratory Rate 18 Blood Pressure 169/86 H 160/84 H Blood Pressure [Right Arm] 150/68 H Blood Pressure Mean 109 Blood Pressure Mean [Right Arm] 95 02 Sat by Pulse Oximetry 99 99 99 Oxygen Delivery Method Room Air Room Air 10/16/24 08:20 10/16/24 08:30 10/16/24 09:00 Temperature Temperature Source Pulse Rate 71 67 71 Pulse Rate [Left] Respiratory Rate Blood Pressure 166/81 H 164/84 H 167/84 H Blood Pressure [Right Arm] Blood Pressure Mean 107 101 Blood Pressure Mean [Right Arm] 02 Sat by Pulse Oximetry 97 99 99 Oxygen Delivery Method Room Air 10/16/24 09:30 10/16/24 10:00 10/16/24 10:48 Temperature Temperature Source Pulse Rate 89 85 65 Pulse Rate [Left] Respiratory Rate 16 Blood Pressure 168/104 H 181/98 H 149/84 H Blood Pressure [Right Arm] Blood Pressure Mean Blood Pressure Mean [Right Arm] 02 Sat by Pulse Oximetry 99 97 97 Oxygen Delivery Method Room Air Room Air Room Air 10/16/24 11:00 10/16/24 11:30 10/16/24 12:02 Temperature Temperature Source Pulse Rate 68 77 86 Pulse Rate [Left] Respiratory Rate 14 21 15 Blood Pressure 143/63 H 132/100 H 175/60 H Blood Pressure [Right Arm] Blood Pressure Mean 89 Blood Pressure Mean [Right Arm] 02 Sat by Pulse Oximetry 99 99 99 Oxygen Delivery Method Room Air Room Air 10/16/24 12:30 10/16/24 13:00 10/16/24 13:30 Temperature Temperature Source Pulse Rate 89 89 Pulse Rate [Left] Respiratory Rate 18 14 19 Blood Pressure 156/86 H 141/91 H 138/78 Blood Pressure [Right Arm] Blood Pressure Mean 98 Blood Pressure Mean [Right Arm] 02 Sat by Pulse Oximetry 96 98 Oxygen Delivery Method Room Air Room Air 10/16/24 13:32 10/16/24 13:47 Temperature 98.2 F Temperature Source Pulse Rate 80 Pulse Rate [Left] Respiratory Rate 14 Blood Pressure 138/78 Blood Pressure [Right Arm] Blood Pressure Mean Blood Pressure Mean [Right Arm] 02 Sat by Pulse Oximetry Oxygen Delivery Method Room Air Room Air Lab Data Lab results reviewed: Yes I reviewed the patient's lab results. Lab Results 10/16/24 07:05: WBC 6.4, RBC 4.30, Hgb 12.6, Hct 39.1, MCV 90.9, MCH 29.3, MCHC 32.2, RDW 12.9, Plt Count 221, MPV 10.1, Neut % (Auto) 75.3, Lymph % (Auto) 13.6, Tillman % (Auto) 7.2, Eos % (Auto) 2.7, Baso % (Auto) 0.9, Neut # (Auto) 4.8, Lymph # (Auto) 0.9, Tillman # (Auto) 0.5, Eos # (Auto) 0.2, Baso # (Auto) 0.1, Sodium 138, Potassium 3.2 L, Chloride 106, Carbon Dioxide 27, Anion Gap 8.2, BUN 10, Creatinine 0.50 L, Estimated Creat Clear 53, Estimated GFR 123, Est GFR ( Amer) 148, Glucose 89, Calcium 8.4, Phosphorus 2.4 L, Magnesium 1.8, Total Bilirubin 0.6, AST 29, ALT 20, Alkaline Phosphatase 76, Total Protein 6.3, Albumin 4.2, Globulin 2.1, Albumin/Globulin Ratio 2.0 H, Lipase 70, TSH 0.76, Thyroxine (T4) 13.7 H 10/16/24 08:42: Urine Color Yellow, Urine Appearance Clear, Urine pH 7.0, Ur Specific [place] 1.015, Urine Protein Negative, Urine Glucose (UA) Negative, Urine Ketones 3+, Urine Blood Trace A, Urine Nitrate Negative, Urine Bilirubin Negative, Urine Urobilinogen 0.2, Ur Leukocyte Esterase Negative, Urine RBC None, Urine WBC Occasional, Ur Squamous Epith Cells 3-5, Urine Bacteria Trace, Hyaline Casts Occ 10/16/24 07:05 10/16/24 07:05 Orders (Tests/Meds): ED MEDICATIONS Discontinued Medications Generic Name Dose Route Start Last Admin Trade Name Freq PRN Reason Stop Dose Admin Acetaminophen 1,000 mg 10/16/24 07:01 10/16/24 07:46 Acetaminophen 500mg Tab PO 10/16/24 07:02 Not Given ONCE ONE Lactated Ringer's 1,000 mls @ 999 mls/hr 10/16/24 07:15 10/16/24 07:34 Lactated Ringer's 1000 Ml Bag IV 10/16/24 08:15 999 mls/hr .Q1H1M MARCELLA Administration Potassium Chloride/Water 100 mls @ 100 mls/hr 10/16/24 09:16 10/16/24 09:46 Potassium Chloride 10meq/100ml Ivpb IV 10/16/24 10:15 100 mls/hr ONCE ONE Administration Lactated Ringer's 500 mls @ 999 mls/hr 10/16/24 09:16 10/16/24 09:46 Lactated Ringer's 500ml IV 10/16/24 09:46 999 mls/hr .Q31M ONE Administration Iopamidol 75 ml 10/16/24 07:59 10/16/24 08:00 Iopamidol-370 (76%);100ml Bottle IV 10/16/24 08:00 75 ml ONCE ONE Administration Ketorolac Tromethamine 15 mg 10/16/24 07:01 10/16/24 07:34 Ketorolac 30mg/Ml Vial IV 10/16/24 07:02 15 mg ONCE ONE Administration Polyethylene Glycol/Electrolytes 2,000 ml 10/16/24 09:14 10/16/24 09:41 Peg-Electrolyte Soln 4000ml Bottle PO 10/16/24 09:15 2,000 ml ONCE ONE Administration Sodium Chloride 10 ml 10/16/24 07:59 10/16/24 08:00 Sodium Chloride 0.9% 10ml Syr (Rad Only) IV 10/16/24 08:00 10 ml ONCE ONE Administration ORDERS Category Date Time Status CT abdomen pelvis w con Stat Cat Scan 10/16/24 07:[address] head/brain wo con Stat Cat Scan 10/16/24 07:[address] soft tissue neck w con Stat Cat Scan 10/16/24 07:06 Completed CBC w/Auto Diff [Complete Blood Count Auto Diff] Stat Lab 10/16/24 07:05 Completed CMP [Comprehensive Metabolic Panel] Stat Lab 10/16/24 07:05 Completed Lipase Stat Lab 10/16/24 07:05 Completed Magnesium Stat Lab 10/16/24 07:05 Completed Phosphorous Stat Lab 10/16/24 07:05 Completed T4 (Thyroxine) Stat Lab 10/16/24 07:05 Completed TSH [Thyroid Stimulating Hormone] Stat Lab 10/16/24 07:05 Completed UA [Urinalysis and Microscopic] Stat Lab 10/16/24 08:42 Completed Urine Culture(cathed specimen) Stat Micro 10/16/24 08:42 Received Medical Decision Narrative: 68-year-old female with relatively recent diagnosis of Parkinson's dementia and a large thyroid nodule, initiated on carbidopa levodopa, donepezil and amantadine 1 week ago, presents with worsening swallowing and severe generalized abdominal pain, has not had a bowel movement in a week. History was obtained via interactive discussion with patient, daughter, chart review. On arrival, patient is [afebrile, hemodynamically stable, satting appropriately, alert, oriented x4, GCS 15], moving all extremities spontaneously. Full physical exam performed and significant for generalized abdominal tenderness, palpable thyroid nodule, no intraoral lesions noted, Differential includes but is not limited to medication side effect, progression of parkinsonism, hydration, electrolyte derangement, mass effect in the neck from thyroid nodule, constipation, cholecystitis, bowel obstruction. Patient was given Tylenol Toradol and 1 L fluid bolus for symptomatic management and correction of underlying abnormalities. Workup initiated including CT abdomen pelvis IV contrast, CT neck with contrast, broad-spectrum laboratory analysis. Laboratory workup independently interpreted by me and significant for no significant leukocytosis, mild hypokalemia and hypophosphatemia. At this time care handoff to oncoming physician. <Koki Waller, DO - Last Filed: 10/16/24 16:00> Vital Signs: 10/16/24 06:52 10/16/24 07:00 10/16/24 07:30 Temperature 97.9 F Temperature Source Oral Pulse Rate 64 77 Pulse Rate [Left] 82 Respiratory Rate 18 Blood Pressure 169/86 H 160/84 H Blood Pressure [Right Arm] 150/68 H Blood Pressure Mean 109 Blood Pressure Mean [Right Arm] 95 02 Sat by Pulse Oximetry 99 99 99 Oxygen Delivery Method Room Air Room Air 10/16/24 08:20 10/16/24 08:30 10/16/24 09:00 Temperature Temperature Source Pulse Rate 71 67 71 Pulse Rate [Left] Respiratory Rate Blood Pressure 166/81 H 164/84 H 167/84 H Blood Pressure [Right Arm] Blood Pressure Mean 107 101 Blood Pressure Mean [Right Arm] 02 Sat by Pulse Oximetry 97 99 99 Oxygen Delivery Method Room Air 10/16/24 09:30 10/16/24 10:00 10/16/24 10:48 Temperature Temperature Source Pulse Rate 89 85 65 Pulse Rate [Left] Respiratory Rate 16 Blood Pressure 168/104 H 181/98 H 149/84 H Blood Pressure [Right Arm] Blood Pressure Mean Blood Pressure Mean [Right Arm] 02 Sat by Pulse Oximetry 99 97 97 Oxygen Delivery Method Room Air Room Air Room Air 10/16/24 11:00 10/16/24 11:30 10/16/24 12:02 Temperature Temperature Source Pulse Rate 68 77 86 Pulse Rate [Left] Respiratory Rate 14 21 15 Blood Pressure 143/63 H 132/100 H 175/60 H Blood Pressure [Right Arm] Blood Pressure Mean 89 Blood Pressure Mean [Right Arm] 02 Sat by Pulse Oximetry 99 99 99 Oxygen Delivery Method Room Air Room Air 10/16/24 12:30 10/16/24 13:00 10/16/24 13:30 Temperature Temperature Source Pulse Rate 89 89 Pulse Rate [Left] Respiratory Rate 18 14 19 Blood Pressure 156/86 H 141/91 H 138/78 Blood Pressure [Right Arm] Blood Pressure Mean 98 Blood Pressure Mean [Right Arm] 02 Sat by Pulse Oximetry 96 98 Oxygen Delivery Method Room Air Room Air 10/16/24 13:32 10/16/24 13:47 Temperature 98.2 F Temperature Source Pulse Rate 80 Pulse Rate [Left] Respiratory Rate 14 Blood Pressure 138/78 Blood Pressure [Right Arm] Blood Pressure Mean Blood Pressure Mean [Right Arm] 02 Sat by Pulse Oximetry Oxygen Delivery Method Room Air Room Air Lab Data Lab Results 10/16/24 07:05: WBC 6.4, RBC 4.30, Hgb 12.6, Hct 39.1, MCV 90.9, MCH 29.3, MCHC 32.2, RDW 12.9, Plt Count 221, MPV 10.1, Neut % (Auto) 75.3, Lymph % (Auto) 13.6, Tillman % (Auto) 7.2, Eos % (Auto) 2.7, Baso % (Auto) 0.9, Neut # (Auto) 4.8, Lymph # (Auto) 0.9, Tillman # (Auto) 0.5, Eos # (Auto) 0.2, Baso # (Auto) 0.1, Sodium 138, Potassium 3.2 L, Chloride 106, Carbon Dioxide 27, Anion Gap 8.2, BUN 10, Creatinine 0.50 L, Estimated Creat Clear 53, Estimated GFR 123, Est GFR ( Amer) 148, Glucose 89, Calcium 8.4, Phosphorus 2.4 L, Magnesium 1.8, Total Bilirubin 0.6, AST 29, ALT 20, Alkaline Phosphatase 76, Total Protein 6.3, Albumin 4.2, Globulin 2.1, Albumin/Globulin Ratio 2.0 H, Lipase 70, TSH 0.76, Thyroxine (T4) 13.7 H 10/16/24 08:42: Urine Color Yellow, Urine Appearance Clear, Urine pH 7.0, Ur Specific [place] 1.015, Urine Protein Negative, Urine Glucose (UA) Negative, Urine Ketones 3+, Urine Blood Trace A, Urine Nitrate Negative, Urine Bilirubin Negative, Urine Urobilinogen 0.2, Ur Leukocyte Esterase Negative, Urine RBC None, Urine WBC Occasional, Ur Squamous Epith Cells 3-5, Urine Bacteria Trace, Hyaline Casts Occ Orders (Tests/Meds): ED MEDICATIONS Discontinued Medications Generic Name Dose Route Start Last Admin Trade Name Woody PRN Reason Stop Dose Admin Acetaminophen 1,000 mg 10/16/24 07:01 10/16/24 07:46 Acetaminophen 500mg Tab PO 10/16/24 07:02 Not Given ONCE ONE Lactated Ringer's 1,000 mls @ 999 mls/hr 10/16/24 07:15 10/16/24 07:34 Lactated Ringer's 1000 Ml Bag IV 10/16/24 08:15 999 mls/hr .Q1H1M MARCELLA Administration Potassium Chloride/Water 100 mls @ 100 mls/hr 10/16/24 09:16 10/16/24 09:46 Potassium Chloride 10meq/100ml Ivpb IV 10/16/24 10:15 100 mls/hr ONCE ONE Administration Lactated Ringer's 500 mls @ 999 mls/hr 10/16/24 09:16 10/16/24 09:46 Lactated Ringer's 500ml IV 10/16/24 09:46 999 mls/hr .Q31M ONE Administration Iopamidol 75 ml 10/16/24 07:59 10/16/24 08:00 Iopamidol-370 (76%);100ml Bottle IV 10/16/24 08:00 75 ml ONCE ONE Administration Ketorolac Tromethamine 15 mg 10/16/24 07:01 10/16/24 07:34 Ketorolac 30mg/Ml Vial IV 10/16/24 07:02 15 mg ONCE ONE Administration Polyethylene Glycol/Electrolytes 2,000 ml 10/16/24 09:14 10/16/24 09:41 Peg-Electrolyte Soln 4000ml Bottle PO 10/16/24 09:15 2,000 ml ONCE ONE Administration Sodium Chloride 10 ml 10/16/24 07:59 10/16/24 08:00 Sodium Chloride 0.9% 10ml Syr (Rad Only) IV 10/16/24 08:00 10 ml ONCE ONE Administration ORDERS Category Date Time Status CT abdomen pelvis w con Stat Cat Scan 10/16/24 07:[address] head/brain wo con Stat Cat Scan 10/16/24 07:[address] soft tissue neck w con Stat Cat Scan 10/16/24 07:06 Completed CBC w/Auto Diff [Complete Blood Count Auto Diff] Stat Lab 10/16/24 07:05 Completed CMP [Comprehensive Metabolic Panel] Stat Lab 10/16/24 07:05 Completed Lipase Stat Lab 10/16/24 07:05 Completed Magnesium Stat Lab 10/16/24 07:05 Completed Phosphorous Stat Lab 10/16/24 07:05 Completed T4 (Thyroxine) Stat Lab 10/16/24 07:05 Completed TSH [Thyroid Stimulating Hormone] Stat Lab 10/16/24 07:05 Completed UA [Urinalysis and Microscopic] Stat Lab 10/16/24 08:42 Completed Urine Culture(cathed specimen) Stat Micro 10/16/24 08:42 Received Medical Decision Narrative: 68-year-old female with relatively recent diagnosis of Parkinson's dementia and a large thyroid nodule, initiated on carbidopa levodopa, donepezil and amantadine 1 week ago, presents with worsening swallowing and severe generalized abdominal pain, has not had a bowel movement in a week. History was obtained via interactive discussion with patient, daughter, chart review. On arrival, patient is [afebrile, hemodynamically stable, satting appropriately, alert, oriented x4, GCS 15], moving all extremities spontaneously. Full physical exam performed and significant for generalized abdominal tenderness, palpable thyroid nodule, no intraoral lesions noted, Differential includes but is not limited to medication side effect, progression of parkinsonism, hydration, electrolyte derangement, mass effect in the neck from thyroid nodule, constipation, cholecystitis, bowel obstruction. Patient was given Tylenol Toradol and 1 L fluid bolus for symptomatic management and correction of underlying abnormalities. Workup initiated including CT abdomen pelvis IV contrast, CT neck with contrast, broad-spectrum laboratory analysis. Laboratory workup independently interpreted by me and significant for no significant leukocytosis, mild hypokalemia and hypophosphatemia. At this time care handoff to oncoming physician. DO Sridhar: I assumed care of the patient at 7 AM at time of departure of the previous provider. On my assessment of the patient, she is lying in bed in no acute distress. She does not contribute to history given dementia/Parkinson's disease. Labs are reassuring with the exception of hypokalemia and hypophosphatemia, which are mild. CBC is reassuring with no significant leukocytosis or anemia. She has no other significant electrolyte derangements, kidney function is normal. She has a normal albumin. Urinalysis from cath urine specimen demonstrates trace bacteria in the setting of contamination with some squamous cells. Is not overtly concerning for infection with negative nitrates or leukocyte esterase. Urine culture was sent and is pending to be on the safe side. CT scan of the head, CT soft tissue neck, and CT abdomen with IV contrast independently interpreted by myself prior to radiology read and did not demonstrate any acute intracranial hemorrhage, space-occupying lesion, no airway compromise on the CT soft tissue neck, but she does have very significant stool burden with fecal impaction noted on the CT abdomen. Please radiology read for final interpretation. They do note thyromegaly as well as thyroid nodules, and she has hyperthyroidism noted on labs and history. I don't feel this is causing her symptoms at this time. Patient has had ultrasound of this but has not yet had follow-up with the ENT. She has known hyperthyroidism but has not yet followed up with endocrinology. She did follow-up with neurology who started her on her antiparkinson medications, which daughter has been trying to get her to take to the best of her ability at home. Daughter reports significant concern over the fact that she is having difficulty swallowing. She is been supplementing her oral intake with yogurt, Jell-O Parfait, liquids, but she is concerned that she is not getting enough oral intake in. On my assessment, she is able to drink GoLytely without significant issue. She was also given an enema for fecal impaction with good nonbloody bowel movement afterward. Abdominal exam benign, vitals reassuring on cardiac telemetry. I arranged to have a speech eval here in the emergency department to see if we can get further recommendations on how the daughter can help the patient maintain adequate nutrition. At 1000 am, patient was placed in ED observation status pending speech therapy evaluation and continued administration of GoLytely to determine whether or not the patient would be appropriate for discharge versus admission. The patient was provided serial reevaluations and cardiac monitoring while awaiting ultimate disposition. On multiple subsequent reassessments, patient is tolerating oral intake without issue. Speech evaluated her and recommended mechanical soft diet because she did seem to do better without having to chew and swallow big pieces. They did not feel that she is a significant aspiration risk. She had good bowel movements after administration of interventions above. She was given replacement of IV potassium and was monitored on cardiac telemetry during this with no significant changes in vital signs. At this time, I feel that she is at her baseline and is appropriate for discharge with continued close follow-up outpatient with primary care, her neurologist, and then I also gave information for ENT follow-up if they wish to have the thyroid nodules further assessed. I also advise that I felt patient would benefit from endocrinology referral given the thyroid abnormalities. They are to follow-up with primary care for this. Ultimately family has good support at home. We discussed meeting her nutritional needs. I feel she is having a rather quick progressive functional decline in the setting of advanced Parkinson's disease and dementia, and I did advise to the daughter that I feel that she will continue to decline as opposed to get better. It is felt that the patient is appropriate for discharge at 1345. Total ED observation time was 3 hours and 45 minutes. I had a [id number] visit with the patient when providing discharge instructions. The total time involved in discharging this patient was less than 30 minutes. Procedures <Ethan Pace MD - Last Filed: 10/16/24 07:38> Risk/Benefits of Procedure(s) Were Explained: Yes Critical Care <Ethan Pace MD - Last Filed: 10/16/24 07:38> Critical Care Time Critical Care Time: No
[2024-10-16] MEDS: LACTATED RINGERS 1000ML 1,000 ML 999 ML IV (07:34)
[2024-10-16] MEDS: KETOROLAC 30MG/ML VIAL 15 MG IV (07:34)
[2024-10-16 07:40] LABS: T4 (Thyroxine) 13.7 ug/dl (5.53-11.0)
--- NOTE | 2024-10-16 07:50 | PC.NURSE ---
pt going to ct scan via wheelchair
[2024-10-16 07:54] LABS: Thyroid Stimulating Hormone 0.76 uIU/mL (0.465-4.68)
--- NOTE | 2024-10-16 07:56 | CT_ITS ---
FINAL REPORT TECHNIQUE: Noncontrast exam This study was performed with techniques to keep radiation doses as low as reasonably achievable, (ALARA). Individualized dose reduction techniques using automated exposure control or adjustment of mA and/or kV according to the patient''s size were employed. CLINICAL HISTORY: new dysphagia, general worsening COMPARISON: none FINDINGS: Mild atrophy and chronic ischemic white matter changes are noted. No cortical edema is present. There is no mass or hemorrhage. Ventricles are normal. Bone windows show no skull fracture or obvious obstructive lesion. IMPRESSION: 1. No acute intracranial abnormality or obvious mass. 2. Atrophy and chronic ischemic white matter changes as above. Reviewed, Interpreted and Dictated by Mony Maki MD Transcribed by Yumiko Foley Authenticated and [facility]
[2024-10-16] MEDS: SODIUM CHLORIDE 0.9% 10ML SYR (RAD ONLY) 10 ML IV (08:00)
[2024-10-16] MEDS: IOPAMIDOL-370 (76%);100ML BOTTLE 75 ML IV (08:00)
--- NOTE | 2024-10-16 08:07 | PC.NURSE ---
pt arrived back to room from ct
[2024-10-16 08:47] LABS: Microscopic, Urine URINE MICROSCOPIC (MICROSCOPIC)
--- NOTE | 2024-10-16 09:20 | PC.NURSE ---
ASSISTED ZAYRA MINA AT BS WITH ENEMA
[2024-10-16] MEDS: PEG-ELECTROLYTE SOLN 4000ML BOTTLE 2000 ML PO (09:41)
[2024-10-16] MEDS: RINGERS SOLUTION,LACTATED 500 ML 999 ML IV (09:46)
[2024-10-16] MEDS: KCl 10mEq/100ml 100 ML 100 MEQ IV (09:46)
[2024-10-16 09:48] LABS: Appearance,Urine Clear (Clear); Color,Urine Yellow (Yellow); Glucose,Urine (UA) Negative (Negative); Protein,Urine Negative (Negative); Specific Gravity, Urine 1.015 (1.005-1.030)
[2024-10-16 09:49] LABS: Bilirubin,Urine Negative (Negative); Blood, Urine Trace (Negative); Ketones,Urine 3+ (Negative); Leukocyte Esterase,Urine Negative (Negative); Nitrate,Urine Negative (Negative); Urobilinogen,Urine 0.2 EU/dl (0.2)
[2024-10-16 09:50] LABS: Bacteria,Urine Trace /lpf; Hyaline Casts,Urine OCC #/lpf (0); WBC,Urine Occasional #/hpf (0-3)
--- NOTE | 2024-10-16 10:00 | PC.NURSE ---
ENEMA WAS SUCCESSFUL WITH POSITIVE RESULTS, ER MD MADE AWARE
--- NOTE | 2024-10-16 10:30 | PC.NURSE ---
CALLED SPEECH THERAPY ABOUT CONSULT THEY SAID THEY DID NOT SEE AN ORDER, NEW SPEECH EVAL ORDER PLACED IN COMPUTER
--- NOTE | 2024-10-16 11:19 | PC.NURSE ---
SPEECH THERAPY STILL NOT AT BEDSIDE FOR EVAL YET
--- NOTE | 2024-10-16 11:32 | PC.NURSE ---
DR LAURA AT BEDSIDE TO UPDATE PT AND FAMILY
--- NOTE | 2024-10-16 12:19 | PC.NURSE ---
PATIENT HAD NOT URINATED SINCE BEING HERE AND RECEIVED IV AND ORAL FLUIDS, RN BLADDER SCANNED PATIENT TO SEE IF SHE WAS RETAINING AND THERE WAS ONLY 75 ML IN BLADDER, ER MD MADE AWARE
--- NOTE | 2024-10-16 13:18 | PC.NURSE ---
SPEECH AT BS
--- NOTE | 2024-10-16 13:41 | PC.NURSE ---
speech therapy recommended mechanical soft diet for patient
--- NOTE | 2024-10-16 13:44 | HMH.SLDYSPHA ---
Speech & Language Evaluation Speech/Language Dysphagia Evaluation Start: 10/16/24 13:32 Freq: Status: Active Protocol: Document 10/16/24 13:32 AMARILIS (Rec: 10/16/24 13:43 [id number] Dysphagia Assess/Goals/Plan Assessment Date of Evaluation: 10/16/24 Evaluation Type Initial Certification Assessment/Problems dysphagia per MD order Does Patient Qualify for Service No Qualify/Failure Comment Based on clinical observations made through bedside swallow evaluation, pt mastication/ manipulation of bolus and swallowing appear to be WFL. No further skilled speech therapy services are warranted at this time. Recommendations PHYSICIAN CERTIFICATION: The specified therapy services are required, authorized, and reviewed every 30 days. Diet Recommendations Mechanical Soft Liquid Type Recommendations Normal/Thin SL Swallow Guidelines Assist w/all meals,Alt bite w/ sip thru meal,Standard Aspiration Prec. Dysphagia Swallow Precautions/Strategies Sitting Upright (90 deg),Small Bites and Sips,Alternate Liquids/Solids Plan Pt/Guardian verbally ack understanding Yes of dx/prognosis/goals G -code Required No Education Instructions provided Discussed CSE results, diet recommendations, aspiration risks/precautions, compensatory strategies and benefits of MBSS if concerns arise with pt and daughter, nursing, MD, and care management all of which expressed understanding. Pt/Caregiver able to recall information Able to recall/restate Reinforcement needed No Speech & Language HPI History Present Illness Description of Patient Problem OCEAN BIOLOGIST pulled following information from H&P and chart review, 68-year-old female with recent diagnosis of Parkinson's and initiation of donepezil amantadine and carbidopa levodopa approximately 1 week ago presents for worsening p.o. intake and abdominal pain. Patient had a CT scan and ultrasound done within the last few weeks that show multiple thyroid nodules. Patient's swallowing has been worsening over the last month, and is significantly worsened over the last week. Patient seems more sedated after these new medications as well. Patient is currently on a liquid diet because she cannot swallow any solids, but even that is difficult for her and daughter is concerned that she is dehydrated. Her tremors do seem improved after initiation of medications. Patient has dementia as well. They come to the ER tonight because patient is having fairly severe generalized abdominal pain. They think it is related to constipation as patient has not had a bowel movement for the last week. This is not normal for her. They are also concerned about the worsening swallowing and daughter thinks that the throat is harder than it was last time she had a CT scan. Patient is a poor historian. General Information General Current Food Consistancy Full Liquids Dentition Good Dentition Oxygen Status Room Air Dysphagia:Food Presentation Evaluation Food Type Pureed,Mechanical Soft,Regular ,Liquid,Pudding Dysphagia Evaluation Summary Pt was seen sitting upright in the bed with daughter present bedside. Pt's daughter answered most clinical questions for her. OCEAN BIOLOGIST administered all bolus consistencies trialed x2 to assess for consistency and/or fatigue. The following trials were given and no overt s/sxs of aspiration were noted: thin liquids (ice chip, spoonful, open cup/straw sip, subsequent straw/open cup sips), pudding , pureed applesauce, mechanical soft (soft cookie), and regular (ned cracker.) Throughout assessment, pt was observed to produce an effortful swallow to clear given bolus trial, however no residuals were noted throughout oral cavity and had a clear vocal quality after all given trials. At this time , given pt report of being difficult to chew at times as food gets stuck in teeth, as well as observations of effortful swallow it is recommended pt be placed on mechanical soft ground/thin liquid diet. OCEAN BIOLOGIST discussed MBSS as an option to further assess swallow given exhibits of difficulty swallowing given hard/effortful swallows and daughter report of moving to solely liquids 2' trouble. However, daughter was not interested at this time. No further skilled speech therapy services are warranted at this time. OCEAN BIOLOGIST will f/u as needed should they decide to pursue MBSS. Stroke Dysphagia Assessment PHYSICIAN CERTIFICATION: I certify the specified therapy services for Anamaria Kelly are required, authorized, and reviewed every 30 days.
== END 2024-10-16 14:08 | disposition home or self-care (01) ==
PROVIDERS: Emergency Provider Emergency Medicine; PCP Nurse Practitioner Family
DX: E05.90 Thyrotoxicosis, unspecified without thyrotoxic crisis or storm (principal); E01.0 Iodine-deficiency related diffuse (endemic) goiter; R10.9 Unspecified abdominal pain; R63.8 Other symptoms and signs concerning food and fluid intake; K59.00 Constipation, unspecified; R53.81 Other malaise; F03.90 Unspecified dementia, unspecified severity, without behavioral disturbance, psychotic disturbance, mood disturbance, and anxiety
CPT/HCPCS: 70450; 70491; 74177; 80053; 81001; 83690; 83735; 84100; 84436; 84443; 85025; 87086; 96361; 96365; 96374; 99285; J1885; J3480; J7120; Q9967

== ENCOUNTER 2024-10-16 15:18 | Emergency (ER) | payer MEDICARE, SELFPAY ==
[2024-10-16 15:34] VITALS: BP 143/66; PULSE 85; RESP 20; TEMP 36.8; O2SAT 96; BMI 20.9
[2024-10-16 16:00] VITALS: BP 143/67; PULSE 97; RESP 16; O2SAT 96
--- NOTE | 2024-10-16 16:05 | ED_ITS ---
Discharge Plan Disposition Patient Disposition: Home, Self-Care Prescriptions Prescriptions: No Action donepezil 5 mg tablet 5 mg PO HS Qty: 90 3RF cefdinir 300 mg capsule 300 mg PO BID 7 Days Qty: 14 0RF cholecalciferol (vitamin D3) 50 mcg (2,000 unit) capsule 50 mcg PO DAILY Qty: 90 3RF mecobalamin (vitamin B12) 1,000 mcg tablet,chewable 1,000 mcg PO DAILY Qty: 90 3RF calcium carbonate 600 mg calcium (1,500 mg) tablet 1,200 mg PO DAILY Qty: 180 3RF Prolia 60 mg/mL syringe 60 mg SQ [id number] Qty: 1 1RF polyethylene glycol 3350 [Miralax] 17 gram/dose powder 17 g PO DAILY PRN (Reason: constipation) Qty: 510 0RF Boost Max 0.09 gram- 0.5 kcal/mL liquid 1 ea PO DAILY PRN (Reason: meal supplementation) Qty: 3900 1RF Referrals Follow up/Referrals: Gisell Recinos APRN [Primary Care Provider] - See instructions Activity Restrictions/Add. Instructions Additional Instructions/Restrictions: Ms. extensive evaluation earlier today. According to physicians when stools are up-to-date most likely this was orthostatic lightheadedness associated with changes in position some mild dehydration. Please return if she has any worsening symptoms otherwise refer to discharge instructions from previous ED visit which were provided upon discharge this time as well. Clinical Impressions Clinical Impression: Constipation, Light-headedness Instructions Patient Instructions: DI for Syncope in Adults (Fainting), DI for Syncope in Children (Fainting) Print Language Print Language: Luxembourgish Discharge ED Provider: Tom Jordan General Adult HPI General Chief complaint: Syncope Stated complaint: Syncopal Episode, Incontinent, recent ER visit Time Seen by Provider: 10/16/24 15:46 Mode of Arrival: EMS Source of Information: Patient, Relative and EMS Description of Symptoms (Recalled from ER Triage Doc. by RN): pt just d/c from ER within the hour and is back bc she had a syncopal event getting out of car due to mass bowel movement and diarrhea History of Present Illness HPI narrative: Patient is a 68-year-old female who presents today after an extensive evaluation emergency department earlier today. She had CT scans of the head and her neck and also her abdomen which showed extensive stool impaction and constipation. She had numerous bowel movements that were very loose and was doing well upon being discharged. Went home and they changed positions upon trying to enter their house when she felt lightheaded never lost consciousness and slowly went down into the the muddy grass. She did land on her bottom she denies any pain at the moment. She had no chest pain or shortness of breath. No other symptoms. She states that she has no complaints at the moment. Daughter states that they wanted to go inside however EMS brought her back to the emergency department. Related Data Previous Rx's ?Medication ?Instructions ?Recorded donepezil 5 mg tablet 5 mg PO HS #90 tabs 07/12/24 cholecalciferol (vitamin D3) 50 50 mcg PO DAILY #90 caps 08/14/24 mcg (2,000 unit) capsule mecobalamin (vitamin B12) 1,000 1,000 mcg PO DAILY #90 tabs 08/14/24 mcg chewable tablet calcium carbonate 1,200 mg (2 x 600 mg calcium 08/17/24 (1,500 mg)) PO DAILY #180 tabs denosumab 60 mg/mL subcutaneous 60 mg SQ [id number] #1 mL 08/17/24 syringe (Prolia) cefdinir 300 mg capsule 300 mg PO BID 7 days #14 caps 10/09/24 nutritional supplements 0.09 1 ea PO DAILY PRN meal 10/16/24 gram-0.5 kcal/mL oral liquid supplementation #3,900 mL (Boost Max) polyethylene glycol 3350 17 17 g PO DAILY PRN constipation 10/16/24 gram/dose oral powder (Miralax) #510 grams Allergies Allergy/AdvReac Type Severity Reaction Status Date / Time [id number] Reductase AdvReac Verified 10/09/24 13:28 [facility] Disclaimer: The information contained in this section may have been updated after the patient was seen, as this information can be updated by other users. Medical History Urinary tract infection Hyperlipidemia Alzheimer disease Dementia Surgical History History of cholecystectomy History of tonsillectomy Family History Other Cancer Cancer of kidney Parkinson disease Social History Smoking Status: Never smoker alcohol intake: never current occupational status: retired Travel in the last 8 weeks: None adopted: No caregiver/support person: Yes foster care: No household members: children housing: house lives independently: No marital status: unknown Have you lived/traveled outside [place] in past 30 days?: No Contact w/someone who lives/traveled outside US past 30 days?: No Exposure to someone with infectious disease in past 14 days?: No Do you have a fever (greater than 100.4 F or 38 C)?: No Have you tested positive for COVID-19: No Exposed to someone with COVID-19 in past 14 days?: No Do you have a sore throat?: No Do you have a cough?: No Do you have any weakness?: No Do you have any diarrhea?: No Are you experiencing any unusual bleeding?: No Do you have any muscle aches/pain?: No Do you have any abdominal pain?: No Are you experiencing loss of taste or smell?: No Other Medical History Have you received the Flu Vaccine for this season: No Have you received the Pneumonia Vaccine: Yes ROS Obtained: Yes All systems reviewed & no additional complaints except as documented Physical Exam General General appearance: alert and in no apparent distress Respiratory Respiratory exam: Present normal lung sounds bilaterally Cardiovascular Cardiovascular exam: Present regular rate Abdominal Exam Abdominal exam: Present soft; Absent distention or tenderness Back Exam Back exam: Present other (No tenderness in the lower back, or sacral coccyx region) Neurological Exam Neurological exam: Present alert and oriented X3 Medical Decision Making Medical Records Screening: Per USPSTF and CDC recommendations, given the prevalence of disease in our region, it is our hospital?s policy to screen for HIV and viral Hepatitis for all patients aged 18 and over and those with ongoing risk factors. Francesco Inquiry Pt receiving controlled substance: No Vital Signs: 10/16/24 15:34 Temperature 98.2 F Temperature Source Oral Pulse Rate [Left Radial] 85 Respiratory Rate 20 Blood Pressure [Right Arm] 143/66 H Blood Pressure Mean [Right Arm] 91 02 Sat by Pulse Oximetry 96 Oxygen Delivery Method Room Air Medical Decision Narrative: 68-year-old with above history and physical exam extensive evaluation testicular hours ago. She got lightheaded with changing positions also had some loose stools likely has a bit of dehydration and some orthostasis associated this. We offered labs and IV fluids however after extensive discussion and shared decision making with family they are comfortable going home as well care. Patient was swabbed here. They do not wish to have any placement they do not want any further intervention or evaluation and would like to go home. Daughter assured me they will come back any worsening of her symptoms. Patient is discharged instructions from earlier ED visit were printed and given to the maribell ent. Critical Care Critical Care Time Critical Care Time: No
[2024-10-16 16:49] VITALS: BP 156/70; PULSE 101; RESP 20; TEMP 36.8; O2SAT 98
== END 2024-10-16 16:50 | disposition home or self-care (01) ==
PROVIDERS: Emergency Provider Student in an Organized Health Care Education/Training Program; PCP Nurse Practitioner Family
DX: R42 Dizziness and giddiness (principal); R55 Syncope and collapse; K59.00 Constipation, unspecified
CPT/HCPCS: 99283

== ENCOUNTER 2024-10-20 08:27 | Outpatient (CLI) | payer MEDICARE, SELFPAY ==
--- NOTE | 2024-10-20 08:41 | US_ITS ---
FINAL REPORT CLINICAL HISTORY: THYROID NODULES, ABNORMAL FINDINGS -- RT AND LT THYROID NODULE FNA -- HUANG HOLLIS FINDINGS: Ultrasound guided thyroid biopsy. HISTORY: TR 4 nodules within the right and left lobe of the thyroid. Attending radiologist: Dr. Maki Physician Draft Roller Picker: Huang Pérez PA-C PROCEDURE: After review of the initial thyroid ultrasound with the attending radiologist, it was determined that there were 2 TR 4 nodules measuring greater than 15 mm within the thyroid, 1 within the left lobe and one within the right lobe. Both of these nodules were biopsied. After informed consent was obtained and a time-out was performed, the patient was prepped and draped in usual sterile fashion over the neck. Utilizing local anesthesia and sterile technique with a 25-gauge needle, access to both lesions was obtained. Three passes were made into both the left and right lobe thyroid nodules under direct ultrasound guidance. The patient received no conscious sedation. The patient tolerated procedure well and left the department in good condition. IMPRESSION: Status post ultrasound guided biopsy of 2 thyroid nodules without immediate complication. Films reviewed , interpreted and dictated by Dr. Maki. Transcribed by Huang Pérez PA-C. Reviewed, Interpreted and Dictated by Mony Maki MD Transcribed by TELMA Reynolds Authenticated and [facility]
== END 2024-10-20 23:59 | disposition home or self-care (01) ==
LOC: RAD 08:28
PROVIDERS: PCP Nurse Practitioner Family; Visit Provider Nurse Practitioner Family
DX: E04.1 Nontoxic single thyroid nodule (principal); R93.89 Abnormal findings on diagnostic imaging of other specified body structures; E05.90 Thyrotoxicosis, unspecified without thyrotoxic crisis or storm; R13.10 Dysphagia, unspecified
CPT/HCPCS: 76536; 76942; 88173; 88305

== ENCOUNTER 2024-11-17 11:48 | Outpatient (CLI) | payer MEDICARE, SELFPAY ==
[2024-11-17 11:52] VITALS: BMI 21.7
--- NOTE | 2024-11-17 12:30 | ECG_ITS ---
APPROVED REPORT Exam: Resting ECG HR:63 bpm ECG Measurements Heart Rate 63 AXES MA 159 P 44 QRSd 73 QRS 41 QT 370 T 37 QTc 377 Conclusion SINUS RHYTHM NORMAL ECG UNCONFIRMED REPORT Electronically signed by : Fito Vizcarra MD 11/19/2024 14:59:49
[2024-11-17 13:30] LABS: Basophils # 0.1 K/mm3 (0-0.2); Basophils % 1.3 % (0.1-2.0); Chloride 110 mmol/L (98-107); Eosinophils # 0.2 Kmm3 (0.0-0.4); Eosinophils % 3.5 % (0.1-12.0); Hematocrit 35.9 % (37.0-47.0); Hemoglobin 11.5 g/dL (12.2-16.2); Lymphocytes # 1.1 K/mm3 (0.7-4.5); Lymphocytes % 19.6 % (10-50); Mean Corpuscular Hemoglobin 29.3 pg (27.0-31.2); Mean Corpuscular Volume 91.3 fl (81-99); Monocytes # 0.4 K/mm3 (0.1-1.0); Monocytes % 7.5 % (1.7-9.3); Neutrophils # 3.7 K/mm3 (1.8-7.8); Neutrophils % 67.9 % (37.0-80.0); Nucleated Red Blood Cells # 0 10^3/uL; Nucleated Red Blood Cells % 0 %; Platelet Count 228 K/mm3 (142-424); Potassium 3.6 mmoL/L (3.5-5.1); Red Blood Count 3.93 M/mm3 (4.20-5.40); Red Cell Distribution Width 13.5 % (11.5-17.5); Red Cell Distribution Width-SD 45.4 fL; Sodium 138 mmol/L (136-145); White Blood Count 5.5 K/mm3 (4.8-10.8)
[2024-11-17 13:33] LABS: Anion Gap 7.6 mEq/L (5-15); Blood Urea Nitrogen 16 mg/dl (7-17); Calcium 8.3 mg/dl (8.4-10.2); Carbon Dioxide 24 mmol/L (22.0-30.0); Creatinine Clearance Estimated 51 mL/min (50-200); Estimated Glomerular Filt Rate 99 ml/min (>60); GFR (African American) 120 ML/MIN (>60); Glucose 92 mg/dl (74-100)
== END 2024-11-17 23:59 | disposition home or self-care (01) ==
LOC: PREOP 11:48
PROVIDERS: PCP Nurse Practitioner Family; Visit Provider Student in an Organized Health Care Education/Training Program
DX: Z01.810 Encounter for preprocedural cardiovascular examination (principal); Z01.812 Encounter for preprocedural laboratory examination
CPT/HCPCS: 80048; 85025; 93005

== ENCOUNTER 2024-11-21 08:38 | Observation (INO) | payer MEDICARE, SELFPAY ==
[2024-11-17 14:06] VITALS: BMI 24.4
[2024-11-21] VITALS (18 sets, daily range): BP systolic 133–165; BP diastolic 71–87; PULSE 63–95; RESP 16–20; TEMP 36.2–38; O2SAT 95–100; BMI 21.9
[2024-11-21] MEDS: LACTATED RINGERS 1000ML 1,000 ML 25 ML IV (08:34)
--- NOTE | 2024-11-21 08:58 | HMH.PHAINT1 ---
Pharmacy Intervention Comments: HOME MEDICATION LIST VERIFIED USING LIST FROM OUTPATIENT PHARMACY
--- NOTE | 2024-11-21 09:39 | EXP.ANES.CKL ---
[facility] Disclaimer: The information contained in this section may have been updated after the patient was seen, as this information can be updated by other users. Medical History Preoperative examination Light-headedness Constipation Hypophosphatasia Hypokalemia Constipation Dysphagia Fecal impaction Thyroid nodule Abnormal thyroid ultrasound Hyperthyroidism Dysphagia Urinary tract infection Keratosis Onychogryposis Onychomycosis Enlarged lymph nodes in armpit Abnormal screening mammogram Osteoporosis B12 deficiency Vitamin D deficiency Parkinson disease UTI (urinary tract infection) Urinary tract infection Hyperlipidemia Alzheimer disease Recurrent UTI Screening for HIV (human immunodeficiency virus) Encounter for hepatitis C screening test for low risk patient Insomnia HLD (hyperlipidemia) Encounter for screening for osteoporosis Breast cancer screening by mammogram Colon cancer screening Constipation Generalized weakness Encounter to establish care Cervical cancer screening Toenail fungus Weight loss Alzheimer's dementia with behavioral disturbance Dementia Surgical History (Updated 11/21/24 @ 09:34 by Verónica Nunn RN) S/P thyroidectomy History of cholecystectomy History of tonsillectomy Family History Other Cancer Cancer of kidney Parkinson disease Social History (Updated 11/21/24 @ 09:34 by Verónica Nunn RN) Smoking Status: Never smoker alcohol intake: never substance use type: denies use current occupational status: retired Travel in the last 8 weeks: None adopted: No caregiver/support person: Yes foster care: No household members: children housing: house lives independently: No marital status: unknown [facility] Anesthesia Checklist Patient Identification Patient Identification: Arm Band and Family Structural Data Admitted From: Home Planned Operative Procedure/s: Total Thyroidectomy, central neck dissection Consent for Planned Operative Procedure(s) Verified: Yes Verified Documents: Surgical Consent NPO Status Verified Time NPO: 00:00 Chart Verification Results Verified: CBC, BMP and ECG Additional verifications Patient : No Anesthesia Reactions: No Hx Blood Transfusions: No Blood Transfusion Reaction: No Cephalosporin Allergy: No Airway Assessment Mallampati Score:: Class III C-Spine Mobility Assessed: Yes TMJ Mobility Assessed: No Dentition: Poor Dentition (Poor dentition overall, multiple loose teeth on front bottom row.) Neurological Assessment Level of Consciousness: Awake, Alert and Appropriate Hx Seizures: No Psychosocial Assessment Concerns Regarding Surgery: Daughter has custody, pt with Parkinson's and dementia, confused easily Anesthesia Plan Anesthesia Risk discussed: Yes Anesthesia Plan: Verified ASA Class: II Anesthesia Type: General
--- NOTE | 2024-11-21 12:04 | P.OP_ITS ---
Date of procedure: 11/21/24 Pre-op Diagnosis:: thyroid mass Post-op Diagnosis:: same Procedure performed:: total thyroidectomy, right central neck exploration Surgeon:: Ronal Willoughby MD Anesthesia: GETBrooke Estimated blood loss (mL): 20 Operative findings:: firm right sided thyroid mass, no obvious central neck pathology all 4 parathyroids identified, with right inferior re-implanted in right SCM Operative note:: The patient was brought to the OR, laid in the supine position, and general anesthesia with a Nims nerve monitoring endotracheal tube was induced.? Nerve monitor was set up and confirmed to be working appropriately.? Patient was prepped and draped in usual fashion.? Lidocaine with epinephrine 1-100,000 was injected below the incision site.? I dissected through the skin, subcutaneous tissues, and platysma.? The strap muscles were identified at the midline raphae.? The strap muscles were divided at the raphae.? I then began to dissect the strap muscles off of the right side of the thyroid. The strap muscles were fairly adherent to the thyroid lobe, potentially scarring from her previous FNA. ? I isolated the superior pedicle and was taken down with a harmonic.?? We then came inferiorly again freeing thyroid from the surrounding tissue.? I then began to roll the thyroid in a lateral to medial fashion out of the patient's neck.? The recurrent laryngeal nerve was identified and preserved during this process.? I dissected through Mendez's ligament and dissected the lobe off the trachea. The superior parahtyroid gland was identified and preserved. The inferior parathyroid gland came out with the thyroid mass - it was seperated from the thyroid and placed on the back table to be reimplanted at the end of the case. I then began to dissect the strap muscles off of the left side of the thyroid. I isolated the superior pedicle and was taken down with a harmonic.?? We then came inferiorly again freeing thyroid from the surrounding tissue.? I then began to roll the thyroid in a lateral to medial fashion out of the patient's neck.? The recurrent laryngeal nerve was identified and preserved during this process. Both parathroid glands on the left were identified and preserved. I dissected through Mendez's ligament and dissected the lobe off the trachea and removed the thyroid en block from the neck. I examined the left central neck. There was no obvious visual or palpable abnormal lymph nodes seen. Patient's neck was then thoroughly irrigated out.? Hemostasis was achieved with bipolar cautery.? Both of the recurrent laryngeal nerves stimulated both proximally and distally at the end of the case.? 15 [place]ian drains was fashioned in the patient's neck.? The incision was then closed in 2 layers.? They were then turned back over to anesthesia to be awoken and extubated. Condition: stable Disposition: PACU Complications:: none
--- NOTE | 2024-11-21 12:07 | EXP.ANES.I ---
[facility] Anesthesia Record Part I Anesthesia Record I Intake, IV Amount: 700 Hydration: Adequate Estimated blood loss (mL): 0 Urine output (mL): 0 Blood Products used (#): none Blood Pressure: 133/71 SaO2: 95 Pulse Rate: 76 Airway Patency: Patent Respiratory Rate: 16 Temperature: 97.5 F Patient is:: Stable and Somnolent Stable to PACU at:: 12:04
--- NOTE | 2024-11-21 12:17 | SUR.PHASEI ---
1210- @ . No new orders received.
--- NOTE | 2024-11-21 13:30 | P.HP_ITS ---
History of Present Illness *Admission Date: 11/21/24 *Reason for visit:: S/p total thyroidectomy *History of present illness: Anamaria Kelly is a 69-year-old female with a medical history significant for Parkinson's disease/dysphagia who presented after outpatient total thyroidectomy for incidental finding of right-sided thyroid nodule/papillary thyroid carcinoma. Patient has had a longstanding history of neurocognitive changes, including dementia, dysphagia and is being evaluated by neurology for Parkinson's disease. On my evaluation of the patient, she was lying in bed comfortably without acute distress. Incision site clean dry and intact. Tolerating diet without issues. She states she is able to swallow better now, though this is questionable as patient has underlying dementia and she had did not have enlarged thyroids. Spoke with Dr. Willoughby, who recommended advancing diet as tolerated and following up on calcium levels tomorrow. [facility] Disclaimer: The information contained in this section may have been updated after the patient was seen, as this information can be updated by other users. Medical History Preoperative examination Light-headedness Constipation Hypophosphatasia Hypokalemia Constipation Dysphagia Fecal impaction Thyroid nodule Abnormal thyroid ultrasound Hyperthyroidism Dysphagia Urinary tract infection Keratosis Onychogryposis Onychomycosis Enlarged lymph nodes in armpit Abnormal screening mammogram Osteoporosis B12 deficiency Vitamin D deficiency Parkinson disease UTI (urinary tract infection) Urinary tract infection Hyperlipidemia Alzheimer disease Recurrent UTI Screening for HIV (human immunodeficiency virus) Encounter for hepatitis C screening test for low risk patient Insomnia HLD (hyperlipidemia) Encounter for screening for osteoporosis Breast cancer screening by mammogram Colon cancer screening Constipation Generalized weakness Encounter to establish care Cervical cancer screening Toenail fungus Weight loss Alzheimer's dementia with behavioral disturbance Dementia Surgical History (Updated 11/21/24 @ 09:34 by Verónica Nunn RN) S/P thyroidectomy History of cholecystectomy History of tonsillectomy Family History Other Cancer Cancer of kidney Parkinson disease Social History (Updated 11/21/24 @ 09:45 by Seferino Mora CRNA) Smoking Status: Never smoker alcohol intake: never substance use type: denies use current occupational status: retired Travel in the last 8 weeks: None adopted: No caregiver/support person: Yes foster care: No household members: children housing: house lives independently: No marital status: unknown Have you lived/traveled outside [place] in past 30 days?: No Contact w/someone who lives/traveled outside US past 30 days?: No Exposure to someone with infectious disease in past 14 days?: No Do you have a fever (greater than 100.4 F or 38 C)?: No Have you tested positive for COVID-19: No Exposed to someone with COVID-19 in past 14 days?: No Do you have a sore throat?: No Do you have a cough?: No Do you have any weakness?: No Are you experiencing any nausea/vomitting?: No Do you have any diarrhea?: No Are you experiencing any unusual bleeding?: No Do you have any muscle aches/pain?: No Do you have any abdominal pain?: No Are you experiencing loss of taste or smell?: No Other Medical History Have you received the Flu Vaccine for this season: Yes Have you received the Pneumonia Vaccine: Yes Meds Home Medications and Allergies Home Medications ?Medication ?Instructions ?Recorded ?Confirmed ?Type cholecalciferol (vitamin D3) 50 50 mcg PO DAILY #90 caps 08/14/24 11/21/24 Rx mcg (2,000 unit) capsule mecobalamin (vitamin B12) 1,000 1,000 mcg PO DAILY #90 tabs 08/14/24 11/21/24 Rx mcg chewable tablet calcium carbonate 1,200 mg (2 x 600 mg calcium 08/17/24 11/21/24 Rx (1,500 mg)) PO DAILY #180 tabs denosumab 60 mg/mL subcutaneous 60 mg SQ [id number] #1 mL 08/17/24 11/21/24 Rx syringe (Prolia) carbidopa 25 mg-levodopa 100 mg 1 tab PO TID 11/01/24 11/21/24 History tablet donepezil 10 mg tablet 10 mg PO HS 11/01/24 11/21/24 History megestrol 400 mg/10 mL (10 mL) 400 mg PO DAILY 11/01/24 11/21/24 History oral suspension memantine 10 mg tablet 10 mg PO BID 11/21/24 11/21/24 History New Prescriptions to Start Prescriptions: Allergies Allergy/AdvReac Type Severity Reaction Status Date / Time [id number] Reductase AdvReac Other Verified 11/21/24 08:03 Inhibitor Exam Data for Last 24 hours Vital signs and Labs for Last 24 Hours: Temp Pulse Resp BP Pulse Ox O2 Del Method O2 Flow Rate 97.5 F L 79 16 158/76 H 96 Room Air 2 11/21/24 12:08 11/21/24 12:34 11/21/24 12:34 11/21/24 12:34 11/21/24 12:34 11/21/24 12:34 11/21/24 12:18 I & O for Last 24 hours: Intake & Output 11/18/24 11/19/24 11/20/24 11/21/24 23:59 23:59 23:59 23:59 Intake Total 700 / 700 Balance 700 / 700 Weight 61.745 kg Constitutional Constitutional: no acute distress *Routine HEENT Exam Head: Present normocephalic Eye: Present EOMI and PERRL ENT: Present mucous membranes moist *Routine Neck Exam Neck: Present supple; Absent lymphadenopathy *Routine Respiratory Exam Respiratory: Present CTA bilaterally *Routine Cardiovascular Exam Cardiovascular: Present RRR *Routine Abdominal Exam Abdominal: Present soft and normoactive bowel sounds; Absent tenderness *Routine Rectal Exam Rectal:: deferred *Routine Genitalia Exam Genitalia:: deferred *Routine Extremities Exam Extremities: Absent cyanosis, clubbing or edema *Routine Skin Exam Skin: Present warm; Absent rash *Routine Neurological Exam Neurological: Present alert and oriented X3 Assessment and Plan *Assessment and plan (1) Papillary carcinoma of thyroid: Problem Comment: Dx 10/20/2024 Status: Acute Category: Medical Code(s): C73 - Malignant neoplasm of thyroid gland Plan Anamaria Kelly is a 69-year-old female with a medical history significant for Parkinson's disease/dysphagia who presented after outpatient total thyroidectomy for incidental finding of right-sided thyroid nodule/papillary thyroid carcin karely. Patient has had a longstanding history of neurocognitive changes, including dementia, dysphagia and is being evaluated by neurology for Parkinson's disease. On my evaluation of the patient, she was lying in bed comfortably without acute distress. Incision site clean dry and intact. Tolerating diet without issues. She states she is able to swallow better now, though this is questionable as patient has underlying dementia and she had did not have enlarged thyroids. Spoke with Dr. Willoughby, who recommended advancing diet as tolerated and following up on calcium levels tomorrow. #Right papillary thyroid carcinoma/nodule ? S/p outpatient ENT total thyroidectomy. Only right inferior parathyroid gland was removed. Patient tolerated procedure well. ? Discussed with ENT, recommended advancing diet as tolerated and follow-up on calcium levels tomorrow. ? Pain control with morphine, Zofran for nausea. ? Follow-up CBC, CMP in the morning. #Parkinson's disease, dementia #Dysphagia ?Resume home carbidopa/levodopa, donepezil, memantine. Full code DVT prophylaxis: Lovenox 40 mg
[2024-11-21] MEDS: MORPHINE 2MG/ML SYRINGE 2 MG IV (13:42)
[2024-11-21] MEDS: ONDANSETRON 4MG/2ML VIAL 4 MG IV (13:49)
[2024-11-21] MEDS: LACTATED RINGERS 1000ML 1,000 ML 75 ML IV (15:34)
[2024-11-21 18:23] LABS: Basophils % 0.2 % (0.1-2.0); Eosinophils % 0.1 % (0.1-12.0); Hemoglobin 11.7 g/dL (12.2-16.2); Lymphocytes # 0.5 K/mm3 (0.7-4.5); Mean Corpuscular HGB Conc 31.6 g/dL (31.8-35.4); Mean Corpuscular Hemoglobin 29.7 pg (27.0-31.2); Mean Corpuscular Volume 93.9 fl (81-99); Mean Platelet Volume 10.4 fl (7.4-10.4); Monocytes # 0.3 K/mm3 (0.1-1.0); Monocytes % 2.4 % (1.7-9.3); Neutrophils # 11.5 K/mm3 (1.8-7.8); Neutrophils % 93.1 % (37.0-80.0); Nucleated Red Blood Cells # 0 10^3/uL; Nucleated Red Blood Cells % 0 %; Platelet Count 165 K/mm3 (142-424); Red Blood Count 3.94 M/mm3 (4.20-5.40); Red Cell Distribution Width 13.7 % (11.5-17.5); Red Cell Distribution Width-SD 46.7 fL; White Blood Count 12.3 K/mm3 (4.8-10.8)
[2024-11-21 18:29] LABS: MANUAL DIFFERENTIAL MANUAL DIFFERENTIAL (MANUAL DIFF)
[2024-11-21 18:47] LABS: Alanine Aminotransferase 62 U/L (12-78); Albumin Level 3.3 g/dl (3.5-5.0); Albumin/Globulin Ratio 1.2 (1.1-1.8); Alkaline Phosphatase 56 U/L (38-126); Anion Gap 12.2 mEq/L (5-15); Aspartate Amino Transferase 79 U/L (14-36); Bilirubin,Total 0.6 mg/dl (0.2-1.3); Blood Urea Nitrogen 12 mg/dl (7-17); Calcium 7.5 mg/dl (8.4-10.2); Carbon Dioxide 17 mmol/L (22.0-30.0); Chloride 111 mmol/L (98-107); Creatinine Clearance Estimated 52 mL/min (50-200); Estimated Glomerular Filt Rate 158 ml/min (>60); GFR (African American) 191 ML/MIN (>60); Globulin 2.7 g/dL (1.3-3.2); Glucose 205 mg/dl (74-100); Potassium 4.2 mmoL/L (3.5-5.1); Sodium 136 mmol/L (136-145)
[2024-11-21 19:38] LABS: Total Cells Counted 100
[2024-11-21 19:40] LABS: Lymphocytes % 5 % (10-50); Neutrophils % 95 % (42-76); Platelet Estimate Normal; RBC Morphology Normal
[2024-11-21 19:41] LABS: Hypersegmented Neutrophils 1+
--- NOTE | 2024-11-21 19:55 | PC.NURSE ---
patients daughter at beside and stated she doesn't take memantine anymore and that she has asked several times for it to be removed from home med list. I removed med from home med list. med is reordered in [facility] and will be documented as refused.
[2024-11-21] MEDS: CARBIDOPA/LEVODOPA 25/100MG TABLET 1 EACH PO (21:10)
[2024-11-21] MEDS: DONEPEZIL 10MG TAB 10 MG PO (21:10)
--- NOTE | 2024-11-21 21:24 | PC.NURSE ---
daughter stated patient has trouble swallowing at home, including meds - tonight the patient done well swallowing pills individually whole with one drink and no choking or coughing afterwards.
[2024-11-22 03:49] VITALS: BMI 21.9
[2024-11-22 04:00] VITALS: BP 136/72; PULSE 88; RESP 17; TEMP 36.9; O2SAT 96
[2024-11-22] MEDS: LACTATED RINGERS 1000ML 1,000 ML 75 ML IV (04:01)
[2024-11-22 06:26] LABS: Basophils % 0.3 % (0.1-2.0); Eosinophils # 0.1 Kmm3 (0.0-0.4); Eosinophils % 0.6 % (0.1-12.0); Hematocrit 33.3 % (37.0-47.0); Hemoglobin 10.8 g/dL (12.2-16.2); Lymphocytes # 1.4 K/mm3 (0.7-4.5); Lymphocytes % 14.1 % (10-50); Mean Corpuscular HGB Conc 32.4 g/dL (31.8-35.4); Mean Corpuscular Hemoglobin 29.5 pg (27.0-31.2); Mean Platelet Volume 10.3 fl (7.4-10.4); Monocytes # 0.8 K/mm3 (0.1-1.0); Monocytes % 7.9 % (1.7-9.3); Neutrophils # 7.5 K/mm3 (1.8-7.8); Neutrophils % 76.8 % (37.0-80.0); Nucleated Red Blood Cells # 0 10^3/uL; Nucleated Red Blood Cells % 0 %; Platelet Count 207 K/mm3 (142-424); Red Blood Count 3.66 M/mm3 (4.20-5.40); Red Cell Distribution Width 13.6 % (11.5-17.5); White Blood Count 9.8 K/mm3 (4.8-10.8)
[2024-11-22 06:34] LABS: Chloride 113 mmol/L (98-107); Potassium 3.7 mmoL/L (3.5-5.1); Sodium 139 mmol/L (136-145)
[2024-11-22 06:36] LABS: Alanine Aminotransferase 11 U/L (12-78); Aspartate Amino Transferase 37 U/L (14-36); Blood Urea Nitrogen 7 mg/dl (7-17); Creatinine Clearance Estimated 52 mL/min (50-200); Estimated Glomerular Filt Rate 99 ml/min (>60); GFR (African American) 120 ML/MIN (>60)
[2024-11-22 06:37] LABS: Albumin/Globulin Ratio 1.3 (1.1-1.8); Alkaline Phosphatase 73 U/L (38-126); Anion Gap 5.7 mEq/L (5-15); Bilirubin,Total 0.5 mg/dl (0.2-1.3); Carbon Dioxide 24 mmol/L (22.0-30.0); Globulin 2.4 g/dL (1.3-3.2); Glucose 87 mg/dl (74-100); Magnesium 1.6 mg/dl (1.6-2.3); Total Protein,Serum 5.4 g/dl (6.3-8.2)
[2024-11-22 07:01] LABS: Thyroid Stimulating Hormone 0.25 uIU/mL (0.465-4.68)
[2024-11-22 08:00] VITALS: BP 141/83; PULSE 115; RESP 18; TEMP 36.6; O2SAT 97
[2024-11-22] MEDS: CARBIDOPA/LEVODOPA 25/100MG TABLET 1 EACH PO ×2 (08:52→12:49)
--- NOTE | 2024-11-22 10:19 | HMH.PROCNOTE ---
[facility] Procedure Note Date: 11/22/24 Time: 08:40 Procedure Note:: ELEAZAR drain x2 pulled. Approximately 30 mL out from combined drains total this AM. Patient tolerated well. The 2 puncture wounds where the drains were inserted were covered with Telfa Tegaderm dressing without further bleeding noted. The patient tolerated this procedure well.
--- NOTE | 2024-11-22 10:26 | HMH.PTEV ---
Physical Therapy Evaluation Rehab PT IP Evaluation Start: 11/21/24 09:32 Freq: .once Status: Active Protocol: Document 11/22/24 08:40 GRETA (Rec: 11/22/24 10:26 GRETA [id number]) Subjective/History History History Anamaria Kelly is a 69-year-old female with a medical history significant for Parkinson's disease/dysphagia who presented after outpatient total thyroidectomy for incidental finding of right- sided thyroid nodule/papillary thyroid carcinoma. Patient has had a longstanding history of neurocognitive changes, including dementia, dysphagia and is being evaluated by neurology for Parkinson's disease. Patient currently lives with her daughter and is able to ambulate independently at baseline and currently does not use an AD. Pt's home has 2-3 steps to enter. Subjective Subjective Patient is alert and oriented to person and place this am. Pt is willing and eager to get up and ambulate with therapy. She has a notable resting tremor at baseline. Pt returned to bed with call light in reach at end of session. New diagnosis of cancer in past 12 Yes months? [facility] How much help from another person do you currently need... Turning from your back to your side None while in a flat bed without using bedrails? Moving from lying on back to sitting on None the side of a flat bed without using bedrails? Moving to and from a bed to a chair ( None including a wheelchair)? Standing up from a chair using your arms None ? (e.g., wheelchair, bedside chair) Walking in hospital room? A little Climbing 3-5 steps with a railing? A little Mobility Score 22 Mobility Level [facility] Mobility Calculator Mobility 7 Walk 25 feet or more Rehab PT IP Eval Objective Appearance Patient Behavior Appropriate,Cooperative Patient Orientation Person,Place Difficulty following instructions none Speech Pattern Clear,Appropriate,Soft-Spoken Ambulation Patient Able to Ambulate Yes Ambulation Observation IP General Gait Pattern Observation Shuffling Step Ambulation Distance (feet) 50 Ambulation Ability Contact Guard/Hand Hold Balance Ability to Arise Able, uses arms to help Sitting Balance Steady, safe Standing Balance Steady, wide stance Dynamic Sitting Balance Ability Normal Dynamic Standing Balance Ability Normal Transfers Bed Transfer Ability Contact Guard/Hand Hold Sit to Stand Bed Transfer Ability Contact Guard/Hand Hold Rehab PT IP prob,goals,plan Problems Date of Evaluation: 11/22/24 PT IP Problems Bed Mobility,Transfers,Gait, Balance Rehab Potential Rehab Potential Good Plan PT Intervention Plan Bed Mobility,Transfers,Gait, Balance,Therapeutic Exercise PT Plan Frequency Daily Duration LOS Discharge Goals Bed Transfer Ability Independent Sit to Stand Chair Transfer Ability Independent Ambulation Distance (feet) 100 Discharge Plan PT Discharge Plan Patient is currently most appropriate to return home with family support once medically stable for d/c. Home health or outpatient therapy is recommended to maintain independence with ADLs and ambulation and management of Parkinson's disease. Skilled acute therapy is currently indicated to improve LE strength, endurance, and balance to allow pt to return to [facility] with all ADLs, ambulate independently, reduce fall risk, and reduce caregiver burden. Eval Complexity Eval Charge Codes 67907 - High Complexity PHYSICIAN CERTIFICATION: I certify the specified therapy services for Anamaria Kelly are required, authorized, and reviewed every 30 days.
--- NOTE | 2024-11-22 10:36 | P.DS_ITS ---
General Admission date:: 11/21/24 Discharge date: 11/22/24 HPI HPI HPI: Anamaria Kelly is a 69-year-old female with a medical history significant for Parkinson's disease/dysphagia who presented after outpatient total thyroidectomy for incidental finding of right-sided thyroid nodule/papillary thyroid carcinoma. Patient has had a longstanding history of neurocognitive changes, including dementia, dysphagia and is being evaluated by neurology for Parkinson's disease. On my evaluation of the patient, she was lying in bed comfortably without acute distress. Incision site clean dry and intact. Tolerating diet without issues. She states she is able to swallow better now, though this is questionable as patient has underlying dementia and she had did not have enlarged thyroids. Spoke with Dr. Willoughby, who recommended advancing diet as tolerated and following up on calcium levels tomorrow. Hospital Course Hospital Course Hospital Course: Anamaria Kelly is a 69-year-old female with a medical history significant for Parkinson's disease/dysphagia who presented after outpatient total thyroidectomy for incidental finding of right-sided thyroid nodule/papillary thyroid carcinoma. Patient has had a longstanding history of neurocognitive changes, including dementia, dysphagia and is being evaluated by neurology for Parkinson's disease. On my evaluation of the patient, she was lying in bed comfortably without acute distress. Incision site clean dry and intact. Tolerating diet without issues. She states she is able to swallow better now, though this is questionable as patient has underlying dementia and she had did not have enlarged thyroids. Spoke with Dr. Willoughby, who recommended advancing diet as tolerated and following up on calcium levels in the morning. Labs show stable calcium. Stable discharge home after removal of drains. Needs close follow-up for further labs and monitoring. Problems addressed as follows: #Right papillary thyroid carcinoma/nodule #Hypocalcemia # Hypothyroid ? S/p outpatient ENT total thyroidectomy. Only right inferior parathyroid gland was removed. Patient tolerated procedure well. Advance diet. Tolerating well. Calcium level of 7 in the morning, 7.3 after lunch on day of discharge. TSH 0.25. Seen by ENT on day of discharge. ELEAZAR drain to remove x 2. Discussed case. Repeat labs obtained in the afternoon to show stability of calcium. Morning level of 7. Repeat of 7.3. PTH obtained, found to be below lower end of normal range at 3. Recommend initiating levothyroxine 88 mcg a day given total thyroidectomy. Continue calcium and vitamin D supplementation. Stable discharge home with close outpatient follow-up. Pain required minimal doses of opiates during admission. Denies significant pain on day of discharge. Continue Tylenol as needed for pain control. #Parkinson's disease, dementia #Dysphagia ?Resume home carbidopa/levodopa, donepezil, memantine. Total time spent on discharge 35 minutes in counseling, documentation, chart review, and direct care with patient. Exam Data for Last 24 hours Vital signs and Labs for Last 24 Hours: Temp Pulse Resp BP Pulse Ox O2 Del Method O2 Flow Rate 97.8 F 115 H 18 141/83 H 97 Room Air 2 11/22/24 08:00 11/22/24 08:00 11/22/24 08:00 11/22/24 08:00 11/22/24 08:00 11/22/24 08:00 11/21/24 12:18 Laboratory Results - last 24 hr 11/21/24 18:15: WBC 12.3 H, RBC 3.94 L, Hgb 11.7 L, Hct 37.0, MCV 93.9, MCH 29.7, MCHC 31.6 L, RDW 13.7, Plt Count 165, MPV 10.4, Neut % (Auto) 93.1 H, Lymph % (Auto) 4.0 L, [place] % (Auto) 2.4, Eos % (Auto) 0.1, Baso % (Auto) 0.2, Neut # (Auto) 11.5 H, Lymph # (Auto) 0.5 L, [place] # (Auto) 0.3, Eos # (Auto) 0.0, Baso # (Auto) 0.0, Total Counted 100, Neutrophils % (Manual) 95 H, Lymphocytes % (Manual) 5 L, Hypersegmented Neuts 1+, Platelet Estimate Normal, RBC Morphology Normal, Sodium 136, Potassium 4.2, Chloride 111 H, Carbon Dioxide 17 L, Anion Gap 12.2, BUN 12, Creatinine 0.40 L, Estimated Creat Clear 52, Estimated GFR 158, Est GFR ( Amer) 191, Glucose 205 H, Calcium 7.5 L, Total Bilirubin 0.6, AST 79 H, ALT 62, Alkaline Phosphatase 56, Total Protein 6.0 L, Albumin 3.3 L, Globulin 2.7, Albumin/Globulin Ratio 1.2 11/22/24 05:42: WBC 9.8, RBC 3.66 L, Hgb 10.8 L, Hct 33.3 L, MCV 91.0, MCH 29.5, MCHC 32.4, RDW 13.6, Plt Count 207 D, MPV 10.3, Neut % (Auto) 76.8, Lymph % (Auto) 14.1, [place] % (Auto) 7.9, Eos % (Auto) 0.6, Baso % (Auto) 0.3, Neut # (Auto) 7.5, Lymph # (Auto) 1.4, [place] # (Auto) 0.8, Eos # (Auto) 0.1, Baso # (Auto) 0.0, Sodium 139, Potassium 3.7, Chloride 113 H, Carbon Dioxide 24, Anion Gap 5.7, BUN 7 D, Creatinine 0.60 D, Estimated Creat Clear 52, Estimated GFR 99, Est GFR ( Amer) 120 D, Glucose 87 D, Calcium 7.0 L, Magnesium 1.6, Total Bilirubin 0.5, AST 37 H D, ALT 11 L D, Alkaline Phosphatase 73, Total Protein 5.4 L, Albumin 3.0 L, Globulin 2.4, Albumin/Globulin Ratio 1.3, TSH 0.25 L I & O for Last 24 hours: Intake & Output 11/19/24 11/20/24 11/21/24 11/22/24 23:59 23:59 23:59 23:59 Intake Total 2880 / 2890 1201 / 1201 Output Total 2650 / 2650 1235 / 1235 Balance 230 / 240 -34 / -34 Weight 61.745 kg 62.051 kg Constitutional Constitutional: no acute distress, average body habitus, chronically ill appearing and cooperative *Routine HEENT Exam Head: Present normocephalic Eye: Present EOMI and PERRL ENT: Present mucous membranes moist *Routine Neck Exam Neck: Present supple; Absent lymphadenopathy Comments: clean, dry, intact incision at base of anterior neck, no bleeding, swelling; mild pain to palpation *Routine Respiratory Exam Respiratory: Present CTA bilaterally; Absent rhonchi, wheezes or crackles *Routine Cardiovascular Exam Cardiovascular: Present RRR *Routine Abdominal Exam Abdominal: Present soft and normoactive bowel sounds; Absent tenderness *Routine Rectal Exam Patient deferred: visual exam *Routine Exam Patient deferred: external exam *Routine Extremities Exam Extremities: Absent cyanosis, clubbing or edema *Routine Skin Exam Skin: Present intact and warm; Absent rash *Routine Neurological Exam Neurological: Present alert, oriented X3, moving all extremities and tremors; Absent altered mental status Results Data Completed and Pending Labs on day of discharge: Labs from last 24 hours 11/22/24 11/21/24 05:42 18:15 WBC 9.8 12.3 H RBC 3.66 L 3.94 L Hgb 10.8 L 11.7 L Hct 33.3 L 37.0 MCV 91.0 93.9 MCH 29.5 29.7 MCHC 32.4 31.6 L RDW 13.6 13.7 Plt Count 207 D 165 MPV 10.3 10.4 Neut % (Auto) 76.8 93.1 H Lymph % (Auto) 14.1 4.0 L [place] % (Auto) 7.9 2.4 Eos % (Auto) 0.6 0.1 Baso % (Auto) 0.3 0.2 Neut # (Auto) 7.5 11.5 H Lymph # (Auto) 1.4 0.5 L [place] # (Auto) 0.8 0.3 Eos # (Auto) 0.1 0.0 Baso # (Auto) 0.0 0.0 Total Counted 100 Neutrophils % (Manual) 95 H Lymphocytes % (Manual) 5 L Hypersegmented Neuts 1+ Platelet Estimate Normal RBC Morphology Normal Sodium 139 136 Potassium 3.7 4.2 Chloride 113 H 111 H Carbon Dioxide 24 17 L Anion Gap 5.7 12.2 BUN 7 D 12 Creatinine 0.60 D 0.40 L Estimated Creat Clear 52 52 Estimated GFR 99 158 Est GFR ( Amer) 120 D 191 Glucose 87 D 205 H Calcium 7.0 L 7.5 L Magnesium 1.6 Total Bilirubin 0.5 0.6 AST 37 H D 79 H ALT 11 L D 62 Alkaline Phosphatase 73 56 Total Protein 5.4 L 6.0 L Albumin 3.0 L 3.3 L Globulin 2.4 2.7 Albumin/Globulin Ratio 1.3 1.2 TSH 0.25 L DS: Diagnosis Discharge Diagnosis (1) Papillary carcinoma of thyroid: Status: Acute Code(s): C73 - Malignant neoplasm of thyroid gland Problem details: Dx 10/20/2024 Meds Home Medications and Allergies Home Medications ?Medication ?Instructions ?Recorded ?Confirmed ?Type cholecalciferol (vitamin D3) 50 50 mcg PO DAILY #90 caps 08/14/24 11/21/24 Rx mcg (2,000 unit) capsule mecobalamin (vitamin B12) 1,000 1,000 mcg PO DAILY #90 tabs 08/14/24 11/21/24 Rx mcg chewable tablet calcium carbonate 1,200 mg (2 x 600 mg calcium 08/17/24 11/21/24 Rx (1,500 mg)) PO DAILY #180 tabs denosumab 60 mg/mL subcutaneous 60 mg SQ [id number] #1 mL 08/17/24 11/21/24 Rx syringe (Prolia) carbidopa 25 mg-levodopa 100 mg 1 tab PO TID 11/01/24 11/21/24 History tablet donepezil 10 mg tablet 10 mg PO HS 11/01/24 11/21/24 History megestrol 400 mg/10 mL (10 mL) 400 mg PO DAILY 11/01/24 11/21/24 History oral suspension levothyroxine 88 mcg capsule 88 mcg PO DAILY #30 caps 11/22/24 Rx New Prescriptions to Start Prescriptions: levothyroxine Kaushik Casillas Allergies Allergy/AdvReac Type Severity Reaction Status Date / Time [id number] Reductase AdvReac Other Verified 11/21/24 08:03 Inhibitor Discharge Plan Disposition Patient Disposition: Home, Self-Care Condition: Fair Follow up Plan Follow up with: Cecile Goldstein APRN [Nurse Practitioner] - 11/29/24 3:20 pm Gisell Recinos APRN [Primary Care Provider] - 11/29/24 9:30 am Prescriptions/Medication Reconciliation: New levothyroxine 88 mcg capsule 88 mcg PO DAILY Qty: 30 0RF Continued donepezil 10 mg tablet 10 mg PO HS Patient Comments: TAKE 1 TABLET BY MOUTH ONCE DAILY AT BEDTIME carbidopa-levodopa 25-100 mg tablet 1 tab PO TID Patient Comments: TAKE 1/2 (ONE-HALF) TABLET BY MOUTH ONCE DAILY FOR 7 DAYS, THEN 1/2 (ONE- HALF) TWICE DAILY FOR 7 DAYS, THEN 1/2 (ONE-HALF) THREE TIMES DAILY FOR 7 DAYS, THEN 1 THREE TIMES DAILY megestrol 400 mg/10 mL (10 mL) suspension 400 mg PO DAILY cholecalciferol (vitamin D3) 50 mcg (2,000 unit) capsule 50 mcg PO DAILY Qty: 90 3RF mecobalamin (vitamin B12) 1,000 mcg tablet,chewable 1,000 mcg PO DAILY Qty: 90 3RF calcium carbonate 600 mg calcium (1,500 mg) tablet 1,200 mg PO DAILY Qty: 180 3RF Prolia 60 mg/mL syringe 60 mg SQ [id number] Qty: 1 1RF Problem Reconciliation Problems Reviewed?: Yes Patient Discharge Instructions ACTIVITY: Continue current activity DIET: continue same diet Patient Instructions: DI for Thyroidectomy, DI for Surgical Site Infection Print Language: Armenian Providers Primary Care Provider: Gisell Recinos Admit Provider: Eduardo Greer Attending Provider: Eduardo Greer
[2024-11-22 12:00] VITALS: BP 149/77; PULSE 98; RESP 17; TEMP 36.4; O2SAT 99
[2024-11-22 12:40] LABS: Calcium 7.3 mg/dl (8.4-10.2)
[2024-11-22] MEDS: MAGNESIUM SULFATE IN WATER 2 GM/50 ML PIGGYBACK IV ×2 (12:49→13:37)
--- NOTE | 2024-11-22 13:04 | P.PNANES_ITS ---
[facility] Anesthesia Record Part II Anesthesia Record Part II Discharge Time: 12:34 Destination: Medical Surgical Department PACU nurse assessment reviewed?: Yes Patient Condition:: Good Anesthesia Complications:: None Swallowing reflex intact?: Yes Airway Patency: Patent Cyanosis?: No Blood Pressure: 158/76 SaO2: 96 Respiratory Rate: 16 Pulse Rate: 79 Temperature: 97.1 F Mental Status: Alert & Oriented Pain level:: 0 Nausea and/or vomitting:: None Intake, IV Amount: 0 Hydration: Adequate
[2024-11-22 13:05] VITALS: BP 158/76; PULSE 79; RESP 16; TEMP 36.2; O2SAT 96
--- NOTE | 2024-11-22 14:09 | SW/DCPLANNER ---
Spoke with patient and patient's daughter about home health services once patient is medically stable for DC. Patient's daughter stated that she is not interested at the time and that she has already talked to Hospice and they are going to wait for the biopsy to come back. Patient's daughter stated that if they end up needing home health then her and her mom's PCP has worked it out and they think Hospice is the way to go for now. Lien MILES Reading Efficiency Course Director
[2024-11-22 15:01] LABS: Intact Parathyroid Hormone 3.6 pg/mL (7.5-53.5)
--- NOTE | 2024-11-23 10:05 | SW/DCPLANNER ---
Spoke with patient's daughter on the phone. Carlos A's daughter stated that she is doing okay was up and down alot last night. Patient's daughter stated that she was able to get her moms medicine. Patient's daughter stated that she is aware of her upcoming appointments. Patient's daughter stated that she has no concerns or questions at this time. Lien Polo
== END 2024-11-22 15:51 | disposition home or self-care (01) ==
LOC: 2ND 08:38
PROVIDERS: Nurse Practitioner; Admitting Provider Student in an Organized Health Care Education/Training Program; PCP Nurse Practitioner Family; Visit Provider Student in an Organized Health Care Education/Training Program
PROC: (CPT 60240; principal; 2024-11-21 09:00)
DX: C73 Malignant neoplasm of thyroid gland (principal); E78.5 Hyperlipidemia, unspecified; E55.9 Vitamin D deficiency, unspecified; Z88.8 Allergy status to other drugs, medicaments and biological substances; Z79.899 Other long term (current) drug therapy; G20.A1 Parkinson's disease without dyskinesia, without mention of fluctuations; F02.80 Dementia in other diseases classified elsewhere, unspecified severity, without behavioral disturbance, psychotic disturbance, mood disturbance, and anxiety; R13.10 Dysphagia, unspecified
CPT/HCPCS: 60240; 60512; 36415; 80053; 82310; 83735; 83970; 84443; 85007; 85025; 96374; 97163; G0378; J1100; J2270; J2405; J3010; J3475; J7120

== ENCOUNTER 2024-11-24 01:07 | Observation (INO) | payer MEDICARE, SELFPAY ==
[2024-11-24] VITALS (9 sets, daily range): BP systolic 132–157; BP diastolic 63–98; PULSE 62–88; RESP 16–20; TEMP 36.4–36.9; O2SAT 96–100; BMI 22.2; BMI 21.2
--- NOTE | 2024-11-24 01:18 | CT_ITS ---
PROCEDURE INFORMATION: Exam: CT Head Without Contrast Exam date and time: 11/24/2024 1:29 AM Age: 69 years old Clinical indication: Other: Delirium; Additional info: Delirium, HX dementia TECHNIQUE: Imaging protocol: Computed tomography of the head without contrast. Radiation optimization: All CT scans at this facility use at least one of these dose optimization techniques: automated exposure control; mA and/or kV adjustment per patient size (includes targeted exams where dose is matched to clinical indication); or iterative reconstruction. COMPARISON: CT HEAD/BRAIN WO CON 10/16/2024 7:51 AM FINDINGS: Brain: There is age related atrophy. No hemorrhage. There is periventricular white matter hypodensity consistent with chronic small vessel disease. No mass effect. Cerebral ventricles: Ventricular enlargement secondary to parenchymal atrophy. Paranasal sinuses: Visualized sinuses are unremarkable. No fluid levels. Mastoid air cells: Visualized mastoid air cells are well aerated. Orbital cavities: The orbital contents are symmetric and normal. Bones: Unremarkable. No acute fracture. Soft tissues: Unremarkable. IMPRESSION: No acute intracranial abnormality.
--- NOTE | 2024-11-24 01:20 | ED_ITS ---
Discharge Plan Disposition Patient Disposition: Admitted Prescriptions Prescriptions: No Action donepezil 10 mg tablet 10 mg PO HS Patient Comments: TAKE 1 TABLET BY MOUTH ONCE DAILY AT BEDTIME carbidopa-levodopa 25-100 mg tablet 1 tab PO TID Patient Comments: TAKE 1/2 (ONE-HALF) TABLET BY MOUTH ONCE DAILY FOR 7 DAYS, THEN 1/2 (ONE- HALF) TWICE DAILY FOR 7 DAYS, THEN 1/2 (ONE-HALF) THREE TIMES DAILY FOR 7 DAYS, THEN 1 THREE TIMES DAILY megestrol 400 mg/10 mL (10 mL) suspension 400 mg PO DAILY cholecalciferol (vitamin D3) 50 mcg (2,000 unit) capsule 50 mcg PO DAILY Qty: 90 3RF mecobalamin (vitamin B12) 1,000 mcg tablet,chewable 1,000 mcg PO DAILY Qty: 90 3RF calcium carbonate 600 mg calcium (1,500 mg) tablet 1,200 mg PO DAILY Qty: 180 3RF Prolia 60 mg/mL syringe 60 mg SQ [id number] Qty: 1 1RF levothyroxine 88 mcg capsule 88 mcg PO DAILY Qty: 30 0RF Referrals Follow up/Referrals: Gisell Recinos APRN [Primary Care Provider] - See instructions Clinical Impressions Clinical Impression: Acute UTI, Delirium Dementia Qualifiers: Dementia type: Parkinson's disease Instructions Patient Instructions: DI for Altered Mental Status Print Language Print Language: Tamazight Discharge ED Provider: Ethan Pace General Adult HPI General Chief complaint: Altered Mental Status Stated complaint: high bp, dementia, parkinsons, thyroidectomy 11/21 Time Seen by Provider: 11/24/24 01:10 History of Present Illness HPI narrative: 69-year-old female with history of Parkinson's and dementia, recently admitted for thyroidectomy presents for altered mental status. The daughter and caregiver reports that since they have been home the patient has not slept, has been unsteady on her feet, has been screaming at night and has not been acting herself. She has pretty severe dementia at baseline. She has not complained of any particular or specific pain or symptoms, just is acting very strangely. No reported falls or head trauma. Related Data Home Medications ?Medication ?Instructions ?Recorded ?Confirmed carbidopa 25 mg-levodopa 100 mg 1 tab PO TID 11/01/24 11/21/24 tablet donepezil 10 mg tablet 10 mg PO HS 11/01/24 11/21/24 megestrol 400 mg/10 mL (10 mL) 400 mg PO DAILY 11/01/24 11/21/24 oral suspension Previous Rx's ?Medication ?Instructions ?Recorded cholecalciferol (vitamin D3) 50 50 mcg PO DAILY #90 caps 08/14/24 mcg (2,000 unit) capsule mecobalamin (vitamin B12) 1,000 1,000 mcg PO DAILY #90 tabs 08/14/24 mcg chewable tablet calcium carbonate 1,200 mg (2 x 600 mg calcium 08/17/24 (1,500 mg)) PO DAILY #180 tabs denosumab 60 mg/mL subcutaneous 60 mg SQ [id number] #1 mL 08/17/24 syringe (Prolia) levothyroxine 88 mcg capsule 88 mcg PO DAILY #30 caps 11/22/24 Allergies Allergy/AdvReac Type Severity Reaction Status Date / Time [id number] Reductase AdvReac Other Verified 11/21/24 08:03 [facility] Disclaimer: The information contained in this section may have been updated after the patient was seen, as this information can be updated by other users. Medical History (Updated 11/24/24 @ 02:27 by Ethan Pace MD) Preoperative examination Light-headedness Constipation Hypophosphatasia Hypokalemia Constipation Dysphagia Fecal impaction Thyroid nodule Abnormal thyroid ultrasound Hyperthyroidism Dysphagia Urinary tract infection Keratosis Onychogryposis Onychomycosis Enlarged lymph nodes in armpit Abnormal screening mammogram Osteoporosis B12 deficiency Vitamin D deficiency Parkinson disease UTI (urinary tract infection) Urinary tract infection Hyperlipidemia Alzheimer disease Recurrent UTI Screening for HIV (human immunodeficiency virus) Encounter for hepatitis C screening test for low risk patient Insomnia HLD (hyperlipidemia) Encounter for screening for osteoporosis Breast cancer screening by mammogram Colon cancer screening Constipation Generalized weakness Encounter to establish care Cervical cancer screening Toenail fungus Weight loss Alzheimer's dementia with behavioral disturbance Dementia Surgical History (Updated 11/21/24 @ 09:34 by Verónica Nunn RN) S/P thyroidectomy History of cholecystectomy History of tonsillectomy Family History Other Cancer Cancer of kidney Parkinson disease Social History (Updated 11/21/24 @ 09:45 by Seferino Mora CRNA) Smoking Status: Never smoker alcohol intake: never substance use type: denies use current occupational status: retired Travel in the last 8 weeks: None adopted: No caregiver/support person: Yes foster care: No household members: children housing: house lives independently: No marital status: unknown Have you lived/traveled outside [place] in past 30 days?: No Contact w/someone who lives/traveled outside [place] past 30 days?: No Exposure to someone with infectious disease in past 14 days?: No Do you have a fever (greater than 100.4 F or 38 C)?: No Have you tested positive for COVID-19: No Exposed to someone with COVID-19 in past 14 days?: No Do you have a sore throat?: No Do you have a cough?: No Do you have any weakness?: No Do you have any diarrhea?: No Are you experiencing any unusual bleeding?: No Do you have any muscle aches/pain?: No Do you have any abdominal pain?: No Are you experiencing loss of taste or smell?: No Other Medical History Have you received the Flu Vaccine for this season: No Have you received the Pneumonia Vaccine: No ROS Obtained: Yes All systems reviewed & no additional complaints except as documented Physical Exam General General appearance: alert and in no apparent distress Head Head exam: atraumatic and normocephalic Eye Eye exam: Present normal appearance, PERRL and EOMI ENT ENT exam: Present normal oropharynx and normal external ear exam Neck Neck exam: Present normal inspection and full ROM Chest Chest inspection: Present normal inspection and symmetric chest wall rise; Absent tenderness Respiratory Respiratory exam: Present normal lung sounds bilaterally; Absent respiratory distress Cardiovascular Cardiovascular exam: Present regular rate and normal rhythm Abdominal Exam Abdominal exam: Present soft; Absent distention, tenderness or guarding Extremities Exam Extremities exam: Present normal inspection; Absent edema or joint swelling Back Exam Back exam: Present normal inspection; Absent tenderness Neurological Exam Neurological exam: Present alert; Absent motor sensory deficit (No strokelike deficits) Psychiatric Psychiatric exam: Present flat affect Skin Skin exam: Present warm, dry and normal color Lymphatic Lymphatic Findings: no adenopathy Medical Decision Making Medical Records Medical records reviewed: Yes I reviewed the patient's medical records. Screening: Per USPSTF and CDC recommendations, given the prevalence of disease in our region, it is our hospital?s policy to screen for HIV and viral Hepatitis for all patients aged 18 and over and those with ongoing risk factors. Francesco Inquiry Pt receiving controlled substance: No Francesco was queried for this patient: No Vital Signs: 11/24/24 01:20 11/24/24 01:56 Temperature 97.6 F Temperature Source Oral Pulse Rate 71 Pulse Rate [Right] 83 Respiratory Rate 18 Blood Pressure [Right Arm] 141/63 H Blood Pressure Mean [Right Arm] 89 02 Sat by Pulse Oximetry 97 97 Oxygen Delivery Method Room Air Lab Data Lab results reviewed: Yes I reviewed the patient's lab results. Lab Results 11/24/24 01:24: WBC 8.2, RBC 4.00 L, Hgb 11.8 L, Hct 36.6 L, MCV 91.5, MCH 29.5, MCHC 32.2, RDW 13.9, Plt Count 235, MPV 9.8, Neut % (Auto) 70.8, Lymph % (Auto) 17.9, [place] % (Auto) 8.2, Eos % (Auto) 2.3, Baso % (Auto) 0.7, Neut # (Auto) 5.8, Lymph # (Auto) 1.5, [place] # (Auto) 0.7, Eos # (Auto) 0.2, Baso # (Auto) 0.1, Sodium 139, Potassium 3.4 L, Chloride 109 H, Carbon Dioxide 25, Anion Gap 8.4, B UN 17 D, Creatinine 0.50 L, Estimated Creat Clear 52, Estimated GFR 122, Est GFR ( Amer) 148 D, Glucose 94, Calcium 6.2 L, Magnesium 1.6, Total Bilirubin 0.7, AST 26 D, ALT 9 L, Alkaline Phosphatase 81, Total Protein 6.3, Albumin 3.5, Globulin 2.8, Albumin/Globulin Ratio 1.3 11/24/24 01:55: Urine Color Yellow, Urine Appearance Cloudy, Urine pH 7.0, Ur Specific Ione 1.020, Urine Protein Trace, Urine Glucose (UA) Negative, Urine Ketones Trace, Urine Blood 1+ A, Urine Nitrate Negative, Urine Bilirubin Negative, Urine Urobilinogen 2.0, Ur Leukocyte Esterase 3+ A, Urine RBC 3-5, Urine WBC 20-50, Urine Bacteria 4+ 11/24/24 01:24 11/24/24 01:24 Orders (Tests/Meds): ED MEDICATIONS Generic Name Dose Route Start Last Admin Trade Name Woody PRN Reason Stop Dose Admin Ceftriaxone Sodium 1 gm/ 50 mls @ 100 mls/hr 11/24/24 02:19 Sodium Chloride IV 11/24/24 02:48 ONCE ONE Calcium Gluconate/Sodium Chloride 1 gm in 50 mls @ 50 mls/hr 11/24/24 02:24 Calcium Gluconate 1,000mg/50ml Nacl Premix IV 11/24/24 03:23 ONCE ONE Discontinued Medications Generic Name Dose Route Start Last Admin Trade Name Woody PRN Reason Stop Dose Admin Calcium Carbonate 1,500 mg 11/24/24 02:02 Calcium Carbonate 500mg Chewtab PO 11/24/24 02:03 ONCE ONE ORDERS Category Date Time Status CT head/brain wo con Stat Cat Scan 11/24/24 01:18 Completed CBC w/Auto Diff [Complete Blood Count Auto Diff] Stat Lab 11/24/24 01:24 Completed CMP [Comprehensive Metabolic Panel] Stat Lab 11/24/24 01:24 Results Intact Parathyroid Hormone Stat Lab 11/24/24 01:24 Received Magnesium Stat Lab 11/24/24 01:24 Results PHOS [Phosphorous] Stat Lab 11/24/24 02:19 Ordered T4 (Thyroxine) Stat Lab 11/24/24 01:24 Results TSH [Thyroid Stimulating Hormone] Stat Lab 11/24/24 01:24 Results UA [Urinalysis and Microscopic] Stat Lab 11/24/24 01:55 Completed Blood Culture Stat Micro 11/24/24 02:19 Ordered Urine Culture Stat Micro 11/24/24 01:55 Received Medical Decision Narrative: 69-year-old female with history of Parkinson's, dementia, recent admission for thyroidectomy presents for altered mental status. History was obtained via interactive discussion with patient, patient's daughter, chart review. On arrival, patient is afebrile, hemodynamically stable, satting properly on room air, moving all extremities spontaneously. Full physical exam performed and significant for no focal weakness, facial droop or other focal neurologic deficits. Differential includes but is not limited to delirium, electrolyte derangement, infection, stroke. Workup initiated including CBC CMP mag Phos UA parathyroid hormone CT head Noncon. On re-evaluation, patient [remains afebrile, HD stable.] Laboratory workup independently interpreted by me and significant for hypocalcemia with calcium 6.2. Patient initiated on calcium gluconate and calcium carbonate. Urinalysis shows 250 WBCs and 4+ bacteria consistent with urinary tract infection. Imaging independently interpreted by me and significant for no evidence of intracranial bleeding or acute stroke. See radiology read for full review of final results. Given patient history, exam and workup, patient's presentation most likely represents delirium secondary to UTI, hypocalcemia secondary to recent thyroidectomy. Given the severity of her delirium, I think she would be best served by inpatient management. Blood cultures obtained and patient initiated on ceftriaxone for treatment of UTI. Interact discussion was had with the hospitalist on-call for admission. Procedures Risk/Benefits of Procedure(s) Were Explained: Yes Critical Care Critical Care Time Critical Care Time: No
[2024-11-24 01:30] LABS: Basophils # 0.1 K/mm3 (0-0.2); Basophils % 0.7 % (0.1-2.0); Eosinophils # 0.2 Kmm3 (0.0-0.4); Eosinophils % 2.3 % (0.1-12.0); Hematocrit 36.6 % (37.0-47.0); Hemoglobin 11.8 g/dL (12.2-16.2); Lymphocytes # 1.5 K/mm3 (0.7-4.5); Lymphocytes % 17.9 % (10-50); Mean Corpuscular HGB Conc 32.2 g/dL (31.8-35.4); Mean Corpuscular Hemoglobin 29.5 pg (27.0-31.2); Mean Corpuscular Volume 91.5 fl (81-99); Mean Platelet Volume 9.8 fl (7.4-10.4); Monocytes # 0.7 K/mm3 (0.1-1.0); Monocytes % 8.2 % (1.7-9.3); Neutrophils # 5.8 K/mm3 (1.8-7.8); Neutrophils % 70.8 % (37.0-80.0); Nucleated Red Blood Cells # 0 10^3/uL; Nucleated Red Blood Cells % 0 %; Platelet Count 235 K/mm3 (142-424); Red Cell Distribution Width 13.9 % (11.5-17.5); Red Cell Distribution Width-SD 47.1 fL; White Blood Count 8.2 K/mm3 (4.8-10.8)
[2024-11-24 01:43] LABS: Alanine Aminotransferase 9 U/L (12-78); Albumin Level 3.5 g/dl (3.5-5.0); Albumin/Globulin Ratio 1.3 (1.1-1.8); Alkaline Phosphatase 81 U/L (38-126); Anion Gap 8.4 mEq/L (5-15); Aspartate Amino Transferase 26 U/L (14-36); Bilirubin,Total 0.7 mg/dl (0.2-1.3); Blood Urea Nitrogen 17 mg/dl (7-17); Calcium 6.2 mg/dl (8.4-10.2); Carbon Dioxide 25 mmol/L (22.0-30.0); Chloride 109 mmol/L (98-107); Creatinine Clearance Estimated 52 mL/min (50-200); Estimated Glomerular Filt Rate 122 ml/min (>60); GFR (African American) 148 ML/MIN (>60); Globulin 2.8 g/dL (1.3-3.2); Glucose 94 mg/dl (74-100); Magnesium 1.6 mg/dl (1.6-2.3); Potassium 3.4 mmoL/L (3.5-5.1); Sodium 139 mmol/L (136-145); Total Protein,Serum 6.3 g/dl (6.3-8.2)
[2024-11-24 01:58] LABS: Microscopic, Urine URINE MICROSCOPIC (MICROSCOPIC)
[2024-11-24 02:00] LABS: Appearance,Urine CLOUDY (Clear); Bilirubin,Urine Negative (Negative); Blood, Urine 1+ (Negative); Color,Urine YELLOW (Yellow); Glucose,Urine (UA) Negative (Negative); Ketones,Urine TRACE (Negative); Leukocyte Esterase,Urine 3+ (Negative); Nitrate,Urine Negative (Negative); Protein,Urine TRACE (Negative)
[2024-11-24 02:00] LABS: T4 (Thyroxine) 11.2 ug/dl (5.53-11.0)
[2024-11-24 02:06] LABS: WBC,Urine 20-50 #/hpf (0-3)
[2024-11-24 02:07] LABS: Bacteria,Urine 4+ /lpf
[2024-11-24 02:14] LABS: Thyroid Stimulating Hormone 0.55 uIU/mL (0.465-4.68)
[2024-11-24] MEDS: CALCIUM GLUC IN NACL, ISO-OSM 1 GM/50 ML BAG IV ×3 (02:36→13:16)
[2024-11-24] MEDS: CEFTRIAXONE 1 GM 1 GM in 0.9 % SODIUM CHLORIDE 50 ML IV (02:38)
[2024-11-24 02:40] LABS: Intact Parathyroid Hormone < 3.4 pg/mL (7.5-53.5)
[2024-11-24 02:50] LABS: Phosphorous 4.2 mg/dl (2.5-4.5)
--- NOTE | 2024-11-24 02:58 | P.HP_ITS ---
<Statement entered by Kaushik Casillas MD - 11/24/24 21:29> Rounded on patient after nurse practitioner. Personally examined and interviewed patient. Agree with exam findings and care plan as documented. History of Present Illness *Admission Date: 11/24/24 *Reason for visit:: Confusion *History of present illness: This is a 69-year-old female who is well-known to our service line and has a past medical history significant for hypothyroidism, thyroid megaly, dementia, Parkinson's, dysphagia, vitamin B12 deficiency, vitamin D deficiency, hyperlipidemia, insomnia, and weight loss who presents with a chief complaint of confusion. Patient's symptoms, she presented to the emergency room for evaluation. While in the emergency room, patient's serum calcium was 6.4 and her urinalysis was consistent with a urinary tract infection. Due to these findings, hospital medicine was consulted for further admission. Patient has been admitted for further management. During my evaluation of the patient, patient appears to be resting comfortably. She is alert and oriented x 4 for me. Daughter at the bedside states that patient has had increased confusion since her recent surgery. It is worth mentioning that patient is status post thyroidectomy and postoperatively patient has done well. Surgical incision has no abnormalities focalized or visualized. Daughter shared with me a video of patient lying in bed speaking out to herself. When daughter asked who patient was speaking to or was not anyone there, patient was saying though she was not speaking to anyone. Daughter notes that patient has had increasing confusion over the past 72 hours. On exam, patient is able to answer my questions without any problems. Daughter requested that I ask patient her children's name and patient was able to state 7 out of the 11 of the children. Daughter states that this is an improvement from the past. Patient is without any tetany, seizure activity, or fullness of the throat; moreover, she is denying any lightheadedness, dizziness, fever, chills, rigors, nausea, vomiting, shortness of breath, dyspnea, chest pain, or diarrhea. Additional pertinent vitals obtained include CT scan of the head was negative for any acute intracranial process, patient's potassium was 3.4, chloride was 109, calcium was 6.2 (7.3 at discharge on November 22, 2024), T4 of 11.2, PTH of less than 3.4 (previous was 3.6), red blood cell count of 4, hemoglobin 11.8, hematocrit of 33.6, urinalysis revealed 1+ blood/20+ leukocyte Estrace/4+ blood. PFSH [facility] Disclaimer: The information contained in this section may have been updated after the patient was seen, as this information can be updated by other users. Medical History (Updated 11/24/24 @ 03:12 by Alejandro Bhat APRN) Preoperative examination Light-headedness Constipation Hypophosphatasia Hypokalemia Constipation Dysphagia Fecal impaction Thyroid nodule Abnormal thyroid ultrasound Hyperthyroidism Dysphagia Urinary tract infection Keratosis Onychogryposis Onychomycosis Enlarged lymph nodes in armpit Abnormal screening mammogram Osteoporosis B12 deficiency Vitamin D deficiency Parkinson disease UTI (urinary tract infection) Urinary tract infection Hyperlipidemia Alzheimer disease Recurrent UTI Screening for HIV (human immunodeficiency virus) Encounter for hepatitis C screening test for low risk patient Insomnia HLD (hyperlipidemia) Encounter for screening for osteoporosis Breast cancer screening by mammogram Colon cancer screening Constipation Generalized weakness Encounter to establish care Cervical cancer screening Toenail fungus Weight loss Alzheimer's dementia with behavioral disturbance Dementia Surgical History (Updated 11/21/24 @ 09:34 by Verónica Nunn RN) S/P thyroidectomy History of cholecystectomy History of tonsillectomy Family History Other Cancer Cancer of kidney Parkinson disease Social History (Updated 11/21/24 @ 09:45 by Seferino Mora CRNA) Smoking Status: Never smoker alcohol intake: never substance use type: denies use current occupational status: retired Travel in the last 8 weeks: None adopted: No caregiver/support person: Yes foster care: No household members: children housing: house lives independently: No marital status: unknown Have you lived/traveled outside [place] in past 30 days?: No Contact w/someone who lives/traveled outside US past 30 days?: No Exposure to someone with infectious disease in past 14 days?: No Do you have a fever (greater than 100.4 F or 38 C)?: No Have you tested positive for COVID-19: No Exposed to someone with COVID-19 in past 14 days?: No Do you have a sore throat?: No Do you have a cough?: No Do you have any weakness?: No Do you have any diarrhea?: No Are you experiencing any unusual bleeding?: No Do you have any muscle aches/pain?: No Do you have any abdominal pain?: No Are you experiencing loss of taste or smell?: No Other Medical History Have you received the Flu Vaccine for this season: No Have you received the Pneumonia Vaccine: No Review of Systems Review of Systems Review of systems:: pertinent systems reviewed and negative unless documented below Constitutional Constitutional: Reports system reviewed and no additional complaints, except as documented Eyes Eyes: Reports system reviewed and no additional complaints, except as documented ENT Ears, Nose, Mouth, and Throat: Reports system reviewed and no additional complaints, except as documented *Cardiovascular Cardiovascular: Reports system reviewed and no additional complaints, except as documented *Respiratory Respiratory: Reports system reviewed and no additional complaints, except as documented *Gastrointestinal Gastrointestinal: Reports system reviewed and no additional complaints, except as documented *Genitourinary Genitourinary: Reports system reviewed and no additional complaints, except as documented *Musculoskeletal Musculoskeletal: Reports system reviewed and no additional complaints, except as documented Integumentary/Breasts Skin/Breast: Reports system reviewed and no additional complaints, except as documented *Neurologic Neurologic: Reports confusion Psychiatric Psychiatric: Reports confusion Endocrine Endocrine: Reports system reviewed and no additional complaints, except as documented Hematologic/Lymphatic Hematologic/Lymphatic: Reports system reviewed and no additional complaints, except as documented Allergic/Immunologic Allergic/Immunologic: Reports system reviewed and no additional complaints, except as documented Meds Home Medications and Allergies Home Medications ?Medication ?Instructions ?Recorded ?Confirmed ?Type cholecalciferol (vitamin D3) 50 50 mcg PO DAILY #90 caps 08/14/24 11/24/24 Rx mcg (2,000 unit) capsule mecobalamin (vitamin B12) 1,000 1,000 mcg PO DAILY #90 tabs 08/14/24 11/24/24 Rx mcg chewable tablet calcium carbonate 1,200 mg (2 x 600 mg calcium 08/17/24 11/21/24 Rx (1,500 mg)) PO DAILY #180 tabs denosumab 60 mg/mL subcutaneous 60 mg SQ [id number] #1 mL 08/17/24 11/21/24 Rx syringe (Prolia) carbidopa 25 mg-levodopa 100 mg 1 tab PO TID 11/01/24 11/24/24 History tablet donepezil 10 mg tablet 10 mg PO HS 11/01/24 11/24/24 History megestrol 400 mg/10 mL (10 mL) 400 mg PO DAILY 11/01/24 11/21/24 History oral suspension levothyroxine 88 mcg capsule 88 mcg PO DAILY #30 caps 11/22/24 11/24/24 Rx New Prescriptions to Start Prescriptions: Allergies Allergy/AdvReac Type Severity Reaction Status Date / Time [id number] Reductase AdvReac Other Verified 11/21/24 08:03 Inhibitor Exam Data for Last 24 hours Vital signs and Labs for Last 24 Hours: Temp Pulse Resp BP Pulse Ox O2 Del Method 97.6 F 71 18 141/63 H 97 Room Air 11/24/24 01:20 11/24/24 01:56 11/24/24 01:20 11/24/24 01:20 11/24/24 01:56 11/24/24 01:20 Laboratory Results - last 24 hr 11/24/24 01:24: WBC 8.2, RBC 4.00 L, Hgb 11.8 L, Hct 36.6 L, MCV 91.5, MCH 29.5, MCHC 32.2, RDW 13.9, Plt Count 235, MPV 9.8, Neut % (Auto) 70.8, Lymph % (Auto) 17.9, [place] % (Auto) 8.2, Eos % (Auto) 2.3, Baso % (Auto) 0.7, Neut # (Auto) 5.8, Lymph # (Auto) 1.5, [place] # (Auto) 0.7, Eos # (Auto) 0.2, Baso # (Auto) 0.1, Sodium 139, Potassium 3.4 L, Chloride 109 H, Carbon Dioxide 25, Anion Gap 8.4, BUN 17 D, Creatinine 0.50 L, Estimated Creat Clear 52, Estimated GFR 122, Est GFR ( Amer) 148 D, Glucose 94, Calcium 6.2 L, Phosphorus 4.2, Magnesium 1.6, Total Bilirubin 0.7, AST 26 D, ALT 9 L, Alkaline Phosphatase 81, Total Protein 6.3, Albumin 3.5, Globulin 2.8, Albumin/Globulin Ratio 1.3, TSH 0.55 D, Thyroxine (T4) 11.2 H, PTH Intact < 3.4 L 11/24/24 01:55: Urine Color Yellow, Urine Appearance Cloudy, Urine pH 7.0, Ur Specific [place] 1.020, Urine Protein Trace, Urine Glucose (UA) Negative, Urine Ketones Trace, Urine Blood 1+ A, Urine Nitrate Negative, Urine Bilirubin Negative, Urine Urobilinogen 2.0, Ur Leukocyte Esterase 3+ A, Urine RBC 3-5, Urine WBC 20-50, Urine Bacteria 4+ I & O for Last 24 hours: Intake & Output 11/21/24 11/22/24 11/23/24 11/24/24 23:59 23:59 23:59 23:59 Weight 62.596 kg Constitutional Constitutional: no acute distress *Routine HEENT Exam Head: Present normocephalic and atraumatic Eye: Present EOMI and PERRL ENT: Present mucous membranes moist *Routine Neck Exam Neck: Present supple, full ROM and trachea midline Comments: Transverse incision to the throat is well-approximated without any erythema or drainage *Routine Respiratory Exam Respiratory: Present CTA bilaterally, normal respiratory effort, able to speak in complete sentences and symmetric chest movement *Routine Cardiovascular Exam Cardiovascular: Present RRR, Normal S1 and Normal S2 *Routine Abdominal Exam Abdominal: Present soft and normoactive bowel sounds *Routine Rectal Exam Rectal:: deferred *Routine Genitalia Exam Genitalia:: deferred *Routine Extremities Exam Extremities: Present full ROM, pulses intact and normal capillary refill Routine Back/Spine/Pelvis Exam Back/Spine: Present full ROM *Routine Skin Exam Skin: Present intact, dry and warm *Routine Neurological Exam Neurological: Present alert, oriented X3, CN II-XII intact and normal speech Routine Psychiatric Exam Psychiatric: Present normal affect, normal thought process, cooperative and good insight Detailed Head Exam Comments: Negative chevoski sign H&P: Result Impressions 69-year-old female who had recent thyroidectomy presents with altered mental status found to have a urinary tract infection subtherapeutic calcium Assessment and Plan *Assessment and plan (1) AMS (altered mental status): Status: Acute Qualifiers: Altered mental status type: unspecified Qualified Code(s): R41.82 - Altered mental status, unspecified Category: Medical Code(s): R41.82 - Altered mental status, unspecified (2) Acute UTI: Status: Acute Category: Medical Code(s): N39.0 - Urinary tract infection, site not specified (3) Hypocalcemia: Status: Acute Category: Medical Code(s): E83.51 - Hypocalcemia (4) Hypoparathyroidism after procedure: Status: Acute Category: Medical Code(s): E89.2 - Postprocedural hypoparathyroidism Plan Assessment: Altered mental status - May be multifactorial due to subtherapeutic calcium and toxic metabolic encephalopathy from urinary tract infection -CT scan of the head was negative for any acute intracranial process -Daughter was concerned of increased confusion since surgical procedure -I offered MRI of the brain without contrast to ensure no acute stroke, subacute stroke, or brain mass - Daughter was happy to hear and amenable to scan - Will obtain MRI of the brain without contrast in the a.m. -patient has no focal deficits, no headache, or altered speech pattern Acute urinary tract infection -Will continue 1 g Rocephin IV daily - Will monitor urine culture and sensitivity - Once sensitivities posted, we will tailor antibiotics towards culture and sensitivity Primary hypoparathyroidism Hypocalcium -Will give 1 g of calcium gluconate every 8 hours for 3 doses - Will obtain ionized calcium - Obtain phosphorus in the a.m. - Will monitor calcium daily - Will continue vitamin D supplementation once med rec has been updated - Will continue oral supplementation of calcium carbonate once med rec has been updated Status post thyroidectomy postop day 3 - Transverse incision to the neck is stable - Patient has experienced expected outcome of subtherapeutic calcium postoperatively - Will place patient on seizure precautions - Replenish calcium to close to therapeutic levels Plan: Admit patient to the MedSurg unit on telemetry Neurochecks every shift Daughter informed me that patient requires assistance with eating or special utensils that are weighted Will place communication order to nursing staff to assist patient with meals Regular diet CBC/CMP daily 40 mg of enoxaparin subcu daily for DVT prophylaxis Blood cultures x 2 are pending Full code I will discussed this case with attending physician Dr. Casillas and I look forward to more put
[2024-11-24] MEDS: CALCIUM CARBONATE 500MG CHEWTAB 1500 MG PO (03:03)
--- NOTE | 2024-11-24 06:32 | PC.NURSE ---
Pt arrived to unit around 0300. AOx3. Respirations even and unlabored. Received calcium replacement and has been receiving IV abx for UTI. Pt denies pain or shortness of air. Bed alarm on and functioning. Respirations even and unlabored. Bed is low, locked, and call light is in reach.
[2024-11-24 06:35] LABS: Chloride 108 mmol/L (98-107); Sodium 141 mmol/L (136-145)
[2024-11-24 06:37] LABS: Blood Urea Nitrogen 13 mg/dl (7-17); Creatinine Clearance Estimated 50 mL/min (50-200); Estimated Glomerular Filt Rate 122 ml/min (>60); GFR (African American) 148 ML/MIN (>60)
[2024-11-24 06:38] LABS: Alanine Aminotransferase 14 U/L (12-78); Albumin/Globulin Ratio 1.2 (1.1-1.8); Alkaline Phosphatase 73 U/L (38-126); Aspartate Amino Transferase 24 U/L (14-36); Bilirubin,Total 0.5 mg/dl (0.2-1.3); Calcium 6.3 mg/dl (8.4-10.2); Carbon Dioxide 25 mmol/L (22.0-30.0); Globulin 2.6 g/dL (1.3-3.2); Glucose 81 mg/dl (74-100); Phosphorous 4.5 mg/dl (2.5-4.5); Total Protein,Serum 5.6 g/dl (6.3-8.2)
--- NOTE | 2024-11-24 07:54 | HMH.PHAINT1 ---
Pharmacy Intervention Comments: HOME MEDICATION LIST VERIFIED USING LIST FROM MOST RECENT DISCHARGE FROM THIS FACILITY ON 11/22/24
[2024-11-24] MEDS: LEVOTHYROXINE 88MCG (0.088MG) TAB 88 MCG PO (08:57)
[2024-11-24] MEDS: CARBIDOPA/LEVODOPA 25/100MG TABLET 1 EACH PO ×3 (08:57→20:26)
[2024-11-24] MEDS: POTASSIUM CHLORIDE 20MEQ TAB 40 MEQ PO ×3 (08:58→17:17)
[2024-11-24 10:52] LABS: Magnesium 1.4 mg/dl (1.6-2.3)
[2024-11-24] MEDS: CHOLECALCIFEROL 1,000 UNITS (25MCG) TABLET 50 MCG PO (11:57)
[2024-11-24] MEDS: MAGNESIUM SULFATE IN WATER 2 GM/50 ML PIGGYBACK IV ×3 (11:57→15:07)
[2024-11-24] MEDS: CALCIUM CARBONATE 500MG CHEWTAB 1000 MG PO ×2 (12:08→20:27)
--- NOTE | 2024-11-24 12:33 | SW/DCPLANNER ---
Addendum entered by Shasha Osborne 12/01/24 14:22: Patient's daughter (Kelly/HAVEN) stated that patient is now in her care in [facility]. Kelly [phone] Addendum entered by Shasha Osborne 11/27/24 11:27: Patient/family opted against Hospice at this time. Family stated they prefer to follow up w/ Oncology prior to pursing Hospice services. Addendum entered by Shasha Osborne 11/24/24 15:32: Ayala w/ Hospice is reviewing patient information then will make contact w/ patient's daughter via phone. Addendum entered by Shashaisai Osborne 11/24/24 14:38: Buffy in room w/ patient. After lengthy discussion w/ and daughter decision has been faxed to fax information to [facility]. Daughter has been speaking w/ Hospice prior to recent hospital admissions. I will fax information to Ayala nassar/ [facility] and continue to follow up. Per MD patient will be ready for discharge tomorrow pending no setbacks. Original Note: I attempted to contact patient's caregiver (Buffy) no answer at this time VM left.
[2024-11-24 15:13] LABS: Albumin Level 2.9 g/dl (3.5-5.0); Chloride 109 mmol/L (98-107)
[2024-11-24 15:14] LABS: Potassium 3.9 mmoL/L (3.5-5.1); Sodium 137 mmol/L (136-145)
[2024-11-24 15:16] LABS: Alanine Aminotransferase 6 U/L (12-78); Albumin/Globulin Ratio 1.2 (1.1-1.8); Alkaline Phosphatase 75 U/L (38-126); Anion Gap 5.9 mEq/L (5-15); Aspartate Amino Transferase 22 U/L (14-36); Bilirubin,Total 0.3 mg/dl (0.2-1.3); Blood Urea Nitrogen 12 mg/dl (7-17); Calcium 6.2 mg/dl (8.4-10.2); Carbon Dioxide 26 mmol/L (22.0-30.0); Creatinine Clearance Estimated 50 mL/min (50-200); Estimated Glomerular Filt Rate 122 ml/min (>60); GFR (African American) 148 ML/MIN (>60); Globulin 2.5 g/dL (1.3-3.2); Glucose 92 mg/dl (74-100); Total Protein,Serum 5.4 g/dl (6.3-8.2)
--- NOTE | 2024-11-24 16:35 | PC.NURSE ---
pt had not urinated this shift. bladder scan showed 752ml. pt abdomen distended. assisted pt to the BR, where pt urinated 700ml with no hesitation. pt tolerated ambulation well. notified tech of need to periodically ambulate pt to BR. pt educated on notifying staff of need to urinate.
[2024-11-24] MEDS: CALCIUM GLUC IN NACL, ISO-OSM 2 GM/100 ML BAG IV (17:17)
--- NOTE | 2024-11-24 17:29 | EXP.EVENT.NO ---
Advance care planning note: Active diagnosis: Parkinson's, dementia, thyroid cancer, hypocalcemia, progressive debility, hypothyroidism, unintentional weight loss The patient's active diagnoses are of sufficient risk that focused discussion on advanced care planning is indicated in order to allow the patient to thoughtfully consider personal goals of care; and, if situations arise that prevent the ability to personally give input, to ensure appropriate representation of their personal desires through documentation or informed surrogate decision makers. Discussion: Persons present and participating in discussion: Daughter, patient, son-in-law Discussion: Extensive discussion about patient's cognitive changes since surgery. Discussion about her diagnosis. Discussion about disposition plans including possibility of hospice to focus on comfort and quality. Daughter states she wants to copacetic her mother comfortable and having good quality of life with the time she has left. She is concerned about her worsening mentation since surgery. Extensive discussion about etiologies including metabolic disturbances with hypocalcemia and hypothyroid. Strongly interested in hospice regardless of pathology of thyroid. COVID-19 benefits for respite care, access to nursing and support. Time spent: Total time spent [id number] in education and discussion directly related to advance care planninmin Kaushik Casillas
--- NOTE | 2024-11-24 17:45 | PC.NURSE ---
pt a &o x4. up to the chair. has ambulated with x1 assistance this shift. purewick in place, but pt prefers to use br. pt requires assistance with feeding, but has tolerated soft mech diet well. pills crushed and given in pudding/applesauce. potassium, magnesium and calcium replaced per sep. daughter at bedside. hospice consult in place. pt has a very flat affect, but is pleasant. no needs voiced at this time. call light within reach.
[2024-11-24] MEDS: DONEPEZIL 10MG TAB 10 MG PO (20:26)
[2024-11-24] MEDS: MELATONIN 5MG TABLET 5 MG PO (20:26)
[2024-11-24] MEDS: ENOXAPARIN 40MG/0.4ML SYRINGE 40 MG SUBCUT (20:27)
[2024-11-24] MEDS: CEFTRIAXONE SODIUM 1 GM in 0.9 % SODIUM CHLORIDE 50 ML IV (20:27)
[2024-11-25] MEDS: ACETAMINOPHEN 325MG TAB 650 MG PO (00:20)
[2024-11-25 04:00] VITALS: BP 144/77; PULSE 81; RESP 17; TEMP 36.7; O2SAT 97; BMI 21.7
--- NOTE | 2024-11-25 04:20 | PC.NURSE ---
Patient is alert to herself and situation; patient was unable to recite her birthday matching on file, and was unable to comprehend that she is currently residing in a hospital. GCS score 14. She has expressed difficulty voicing needs at times; patient was regularly interrogated about her needs, such as elimination, comfort level, and feeding by staff this shift. Flat affect and soft-spoken/monotone speech noted. She was observed to have eyes closed, respirations even and unlabored, and no apparent distress throughout the majority of the night. Her daughter visited yesterday evening and later departed at bedtime. At one point during this shift, the patient was verbally calling out due to a complaint of generalized pain; Tylenol was given per SEP with a satisfactory outcome. Scheduled medications were administered as appropriately per SEP. Pills were given with vanilla pudding to aid in swallowing due to the patient's ongoing recovery from a recent thyroidectomy. Thyroidectomy incision was assessed; it is open to air without present signs of infection thus far. Auscultation of heart, lungs, and bowels were within normal findings. Blood pressures elevated. Patient requires assistance during feeding. She also requires at least x1 assistance during ambulation/transfers. Tremoring was noted during movement and repositioning in bed by staff. Seizure pads in place. At this time, the patient is resting in bed without any further complaints. No new needs at this time. Bed alarm on. Call light within reach.
[2024-11-25] MEDS: LEVOTHYROXINE 88MCG (0.088MG) TAB 88 MCG PO (06:01)
[2024-11-25 07:16] LABS: Basophils # 0.1 K/mm3 (0-0.2); Basophils % 1.1 % (0.1-2.0); Eosinophils # 0.3 Kmm3 (0.0-0.4); Eosinophils % 5.8 % (0.1-12.0); Hematocrit 33.4 % (37.0-47.0); Hemoglobin 10.8 g/dL (12.2-16.2); Lymphocytes # 1.1 K/mm3 (0.7-4.5); Mean Corpuscular HGB Conc 32.3 g/dL (31.8-35.4); Mean Corpuscular Hemoglobin 29.4 pg (27.0-31.2); Monocytes # 0.4 K/mm3 (0.1-1.0); Monocytes % 8.3 % (1.7-9.3); Neutrophils # 2.7 K/mm3 (1.8-7.8); Neutrophils % 60.4 % (37.0-80.0); Nucleated Red Blood Cells # 0 10^3/uL; Nucleated Red Blood Cells % 0 %; Platelet Count 206 K/mm3 (142-424); Red Blood Count 3.67 M/mm3 (4.20-5.40); Red Cell Distribution Width 14.1 % (11.5-17.5); Red Cell Distribution Width-SD 47.2 fL; White Blood Count 4.5 K/mm3 (4.8-10.8)
[2024-11-25 07:21] LABS: Chloride 109 mmol/L (98-107)
[2024-11-25 07:22] LABS: Potassium 3.9 mmoL/L (3.5-5.1); Sodium 140 mmol/L (136-145)
[2024-11-25 07:24] LABS: Alanine Aminotransferase 21 U/L (12-78); Anion Gap 9.9 mEq/L (5-15); Aspartate Amino Transferase 27 U/L (14-36); Blood Urea Nitrogen 9 mg/dl (7-17); Carbon Dioxide 25 mmol/L (22.0-30.0); Creatinine Clearance Estimated 51 mL/min (50-200); Estimated Glomerular Filt Rate 122 ml/min (>60); GFR (African American) 148 ML/MIN (>60)
[2024-11-25 07:25] LABS: Albumin/Globulin Ratio 1.2 (1.1-1.8); Alkaline Phosphatase 65 U/L (38-126); Bilirubin,Total 0.4 mg/dl (0.2-1.3); Globulin 2.6 g/dL (1.3-3.2); Glucose 98 mg/dl (74-100); Total Protein,Serum 5.6 g/dl (6.3-8.2)
[2024-11-25 07:42] LABS: Magnesium 1.8 mg/dl (1.6-2.3)
[2024-11-25 08:00] VITALS: BP 142/90; PULSE 69; RESP 17; TEMP 36.3; O2SAT 96
[2024-11-25] MEDS: CARBIDOPA/LEVODOPA 25/100MG TABLET 1 EACH PO ×3 (09:33→20:59)
[2024-11-25] MEDS: CALCITRIOL 0.25MCG CAPSULE 0.5 MCG PO ×2 (09:33→14:42)
[2024-11-25] MEDS: CALCIUM CARBONATE 500MG CHEWTAB 1000 MG PO ×3 (09:33→20:59)
[2024-11-25] MEDS: CHOLECALCIFEROL 1,000 UNITS (25MCG) TABLET 50 MCG PO (09:34)
[2024-11-25] MEDS: CALCIUM GLUC IN NACL, ISO-OSM 2 GM/100 ML BAG IV (10:21)
[2024-11-25] MEDS: ENOXAPARIN 40MG/0.4ML SYRINGE 40 MG SUBCUT (10:21)
--- NOTE | 2024-11-25 14:13 | ECG_ITS ---
APPROVED REPORT Exam: Resting ECG HR:76 bpm ECG Measurements Heart Rate 76 AXES LA 149 P 158 QRSd 71 QRS 111 QT 365 T 130 QTc 395 Conclusion SINUS RHYTHM LOW QRS VOLTAGE [QRS DEFLECTION < 0.5/1.0 mV IN LIMB/CHEST LEADS] LATERAL MYOCARDIAL INFARCTION , OF INDETERMINATE AGE [40+ ms Q WAVE AND/OR ST/T ABNORMALITY IN I/aVL/V5/V6] ABNORMAL ECG UNCONFIRMED REPORT Electronically signed by : Fito Vizcarra MD 11/27/2024 08:28:17
[2024-11-25 15:11] LABS: Calcium, Ionized 3.8 mg/dL (4.5-5.6)
[2024-11-25 16:00] VITALS: PULSE 68
--- NOTE | 2024-11-25 18:48 | PC.NURSE ---
This RN went to check on patient for Q2Hr rounds and daughter Buffy (who is her primary caregiver at home) was at bedside and expressed concerns that something was wrong with the patient. This RN asked what the daughter meant so that I could better understand. She stated that, this is not my mom. She's not even answering me. She was not like this two days ago . She stated that she did not feel like our facility was, equipped to take care of someone like my mother and I think she needs [place] psych facility for her Parkinsons . When I asked that daughter what she meant she preceded to say that our facility was not doing anything for her and that she was unhappy that the patient's brain MRI was cancelled. This RN re-educated that joelt's daughter on what MD Casillas and MD Greer have both stated to the patient's daughter. That even if we did the brain MRI it would not affect the care that she is receiving even if she has had a stroke (like that daughter thinks that the she has) due to it being outside of the window to treat. The daughter has also been educated multiple times that Parkinsons is a progressive disease with no cure and that we are doing everything we can to correct the patient's low calcium level that could be exacerbating her parkinsons symptoms. Patient is also currently being treated for a UTI which could be causing her increased confusion. Patient's daughter continued to say that we were giving her no answers to what was wrong with her mother and proceeded to get very tearful and upset to which she stated that she was going to talk to the patient's on POC for the patient. contact center rep and MD made aware of situation with daughter this evening.
[2024-11-25 20:00] VITALS: BP 152/80; PULSE 65; PULSE 70; RESP 16; TEMP 36.7; O2SAT 99
[2024-11-25] MEDS: CHOLECALCIFEROL 1,000 UNITS (25MCG) TABLET 75 MCG PO (20:59)
[2024-11-25] MEDS: CALCITRIOL 0.25MCG CAPSULE 1 MCG PO (20:59)
[2024-11-25] MEDS: DONEPEZIL 10MG TAB 10 MG PO (20:59)
[2024-11-25] MEDS: CEFTRIAXONE SODIUM 1 GM in 0.9 % SODIUM CHLORIDE 50 ML IV (20:59)
[2024-11-25] MEDS: MELATONIN 5MG TABLET 5 MG PO (20:59)
--- NOTE | 2024-11-25 21:56 | P.PN_ITS ---
Subjective *Date: 11/25/24 *Time: 21:56 Interval history: Patient's mentation seems to have improved today. However hypocalcemia worse today, tremors worse today. Replating with IV and PO, increase calcitriol and vitamin D. Continuous cardiac telemetry. Daughter is tearful and frustrated later in the afternoon with progress. She was assured that we are doing everything that we can to help replace her calcium. Other workup including MRI, transfer to psych facility is certainly not warranted at this time. No focal deficits. Improving mentation. Exam Data for Last 24 hours Vital signs and Labs for Last 24 Hours: Temp Pulse Resp BP Pulse Ox O2 Del Method 98.1 F 70 16 152/80 H 99 Room Air 11/25/24 20:00 11/25/24 20:00 11/25/24 20:00 11/25/24 20:00 11/25/24 20:00 11/25/24 20:00 Laboratory Results - last 24 hr 11/24/24 05:35: Ionized Calcium 3.8 L 11/25/24 06:48: WBC 4.5 L D, RBC 3.67 L, Hgb 10.8 L, Hct 33.4 L, MCV 91.0, MCH 29.4, MCHC 32.3, RDW 14.1, Plt Count 206, MPV 10.0, Neut % (Auto) 60.4, Lymph % (Auto) 24.0, [place] % (Auto) 8.3, Eos % (Auto) 5.8, Baso % (Auto) 1.1, Neut # (Auto) 2.7, Lymph # (Auto) 1.1, [place] # (Auto) 0.4, Eos # (Auto) 0.3, Baso # (Auto) 0.1, Sodium 140, Potassium 3.9, Chloride 109 H, Carbon Dioxide 25, Anion Gap 9.9, BUN 9, Creatinine 0.50 L, Estimated Creat Clear 51, Estimated GFR 122, Est GFR ( Amer) 148, Glucose 98, Calcium 6.0 L, Magnesium 1.8 D, Total Bilirubin 0.4, AST 27, ALT 21 D, Alkaline Phosphatase 65, Total Protein 5.6 L, Albumin 3.0 L, Globulin 2.6, Albumin/Globulin Ratio 1.2 I & O for Last 24 hours: Intake & Output 11/22/24 11/23/24 11/24/24 11/25/24 23:59 23:59 23:59 23:59 Intake Total 740 / 890 1010 / 1010 Output Total 700 / 700 0 / 0 Balance 40 / 190 1010 / 1010 Weight 60.01 kg 61.28 kg Microbiology Reports for the Last 24 Hours: Microbiology 11/24/24 01:55 Urine,Clean Catch Urine Culture - Preliminary 11/24/24 02:35 Blood Blood Culture - Preliminary NO GROWTH AFTER 24 HOURS 11/24/24 02:34 Blood Blood Culture - Preliminary NO GROWTH AFTER 24 HOURS Constitutional Constitutional: no acute distress, average body habitus, chronically ill appearing and cooperative *Routine HEENT Exam Head: Present normocephalic Eye: Present EOMI and PERRL ENT: Present mucous membranes moist *Routine Neck Exam Neck: Present supple; Absent lymphadenopathy Comments: clean, dry, intact incision at base of anterior neck, no bleeding, swelling; mild pain to palpation *Routine Respiratory Exam Respiratory: Present CTA bilaterally; Absent rhonchi, wheezes or crackles *Routine Cardiovascular Exam Cardiovascular: Present RRR *Routine Abdominal Exam Abdominal: Present soft and normoactive bowel sounds; Absent tenderness *Routine Rectal Exam Patient deferred: visual exam *Routine Exam Patient deferred: external exam *Routine Extremities Exam Extremities: Absent cyanosis, clubbing or edema *Routine Skin Exam Skin: Present intact and warm; Absent rash *Routine Neurological Exam Neurological: Present alert, oriented X3, moving all extremities and tremors; Absent altered mental status Assessment and Plan *Assessment and plan (1) AMS (altered mental status): Status: Acute Qualifiers: Altered mental status type: unspecified Qualified Code(s): R41.82 - Altered mental status, unspecified Category: Medical Code(s): R41.82 - Altered mental status, unspecified (2) Acute UTI: Status: Acute Category: Medical Code(s): N39.0 - Urinary tract infection, site not specified (3) Hypocalcemia: Status: Acute Category: Medical Code(s): E83.51 - Hypocalcemia (4) Hypoparathyroidism after procedure: Status: Acute Category: Medical Code(s): E89.2 - Postprocedural hypoparathyroidism (5) Papillary carcinoma of thyroid: Problem Comment: Dx 10/20/2024 Status: Acute Category: Medical Code(s): C73 - Malignant neoplasm of thyroid gland Plan Anamaria Kelly is a 69-year-old female with a medical history significant for Parkinson's disease/dysphagia who presented for concerning altered mental status, and was admitted for severe hypocalcemia, UTI. #Acute metabolic encephalopathy #UTI ? UA grossly abnormal, follow-up urine culture. ? Patient's mentation seems to have improved today, answering questions appropriately and following commands. Very pleasant. ? Continue ceftriaxone daily. #Hypoparathyroidism #Hypocalcemia #Tremors ? Only right inferior parathyroid gland was removed during total thyroidectomy. ? Calcium continues to be low, corrected calcium 6.4 today. Slightly lower but yesterday at 6.6. Given calcium gluconate 2 g today. ? EKG does show inverted T waves in anterior leads. Patient stable however, vital signs stable ? Patient is very tremulous today, especially in the hands. Likely from hypocalcemia, but as well as from Parkinson's disease. Denies paresthesias. ? Spoke with Dr. Willoughby, ENT, recommended increasing calcitriol to 1 mcg twice daily, continue calcium carbonate and vitamin D. ? Increased calcitriol from 0.5 to 1 mcg twice daily. ? Continue calcium carbonate 1000 mg 3 times daily. ? Increased vitamin D to 4000 IU daily. ? Phosphorus stable. ? Continuous cardiac telemetry in the setting of hypocalcemia. ? Follow-up CMP, phosphorus in the morning. #Right papillary thyroid carcinoma/nodule #Hypothyroidism ? S/p outpatient ENT total thyroidectomy. Only right inferior parathyroid gland was removed. Patient tolerated procedure well. ? Incision site clean dry and intact. Patient tolerated p.o. intake. ? Continue levothyroxine 88 mcg. TFT normal. #Parkinson's disease, dementia #Dysphagia ? Resume home carbidopa/levodopa, donepezil, memantine. Full code DVT prophylaxis: Lovenox 40 mg
[2024-11-26] VITALS: BP 133/67; PULSE 60; PULSE 65; RESP 16; TEMP 36.6; O2SAT 98
[2024-11-26 04:00] VITALS: BP 136/69; PULSE 60; PULSE 66; RESP 16; TEMP 36.6; O2SAT 98; BMI 21.2
--- NOTE | 2024-11-26 05:25 | PC.NURSE ---
Pt A&OX3 and has tolerated room air. Lung sounds clear and bowel sounds active. She has remained restless most of the night but is currently asleep. She has received IV ABX. She has ambulated to the bathroom with standby assist. Bed alarm in place for pt safety.
[2024-11-26] MEDS: LEVOTHYROXINE 88MCG (0.088MG) TAB 88 MCG PO (06:52)
[2024-11-26 07:38] LABS: Basophils # 0.1 K/mm3 (0-0.2); Basophils % 1.6 % (0.1-2.0); Eosinophils # 0.3 Kmm3 (0.0-0.4); Eosinophils % 6.1 % (0.1-12.0); Hematocrit 33.4 % (37.0-47.0); Hemoglobin 10.9 g/dL (12.2-16.2); Lymphocytes # 1.2 K/mm3 (0.7-4.5); Lymphocytes % 22.7 % (10-50); Mean Corpuscular HGB Conc 32.6 g/dL (31.8-35.4); Mean Corpuscular Hemoglobin 29.1 pg (27.0-31.2); Mean Corpuscular Volume 89.3 fl (81-99); Mean Platelet Volume 9.9 fl (7.4-10.4); Monocytes # 0.5 K/mm3 (0.1-1.0); Monocytes % 9.3 % (1.7-9.3); Neutrophils % 59.9 % (37.0-80.0); Nucleated Red Blood Cells # 0 10^3/uL; Nucleated Red Blood Cells % 0 %; Platelet Count 244 K/mm3 (142-424); Red Blood Count 3.74 M/mm3 (4.20-5.40); Red Cell Distribution Width 13.5 % (11.5-17.5); Red Cell Distribution Width-SD 44.2 fL; White Blood Count 5.1 K/mm3 (4.8-10.8)
[2024-11-26 07:40] LABS: Albumin Level 3.1 g/dl (3.5-5.0); Chloride 107 mmol/L (98-107); Sodium 140 mmol/L (136-145)
[2024-11-26 07:41] LABS: Potassium 3.5 mmoL/L (3.5-5.1)
[2024-11-26 07:43] LABS: Alanine Aminotransferase 13 U/L (12-78); Albumin/Globulin Ratio 1.2 (1.1-1.8); Alkaline Phosphatase 70 U/L (38-126); Anion Gap 9.5 mEq/L (5-15); Aspartate Amino Transferase 26 U/L (14-36); Bilirubin,Total 0.5 mg/dl (0.2-1.3); Blood Urea Nitrogen 7 mg/dl (7-17); Carbon Dioxide 27 mmol/L (22.0-30.0); Creatinine Clearance Estimated 50 mL/min (50-200); Estimated Glomerular Filt Rate 122 ml/min (>60); GFR (African American) 148 ML/MIN (>60); Globulin 2.5 g/dL (1.3-3.2); Total Protein,Serum 5.6 g/dl (6.3-8.2)
[2024-11-26 07:44] LABS: Calcium 6.9 mg/dl (8.4-10.2); Glucose 82 mg/dl (74-100)
[2024-11-26 07:46] LABS: Magnesium 1.4 mg/dl (1.6-2.3); Phosphorous 6.7 mg/dl (2.5-4.5)
[2024-11-26 08:00] VITALS: BP 135/72; PULSE 60; PULSE 77; RESP 16; TEMP 36.5; O2SAT 98
[2024-11-26] MEDS: CALCITRIOL 0.25MCG CAPSULE 0.5 MCG PO (09:04)
[2024-11-26] MEDS: CARBIDOPA/LEVODOPA 25/100MG TABLET 1 EACH PO ×2 (09:05→13:12)
[2024-11-26] MEDS: CALCIUM CARBONATE 500MG CHEWTAB 1000 MG PO ×2 (09:05→13:12)
[2024-11-26] MEDS: ENOXAPARIN 40MG/0.4ML SYRINGE 40 MG SUBCUT (09:06)
[2024-11-26] MEDS: CHOLECALCIFEROL 1,000 UNITS (25MCG) TABLET 25 MCG PO (09:06)
[2024-11-26] MEDS: PROPRANOLOL 20MG TAB 10 MG PO (09:23)
[2024-11-26] MEDS: CALCIUM GLUC IN NACL, ISO-OSM 2 GM/100 ML BAG IV (10:23)
[2024-11-26 11:42] LABS: Intact Parathyroid Hormone 7.2 pg/mL (7.5-53.5)
[2024-11-26 12:00] VITALS: BP 115/80; PULSE 62; RESP 18; TEMP 36.6; O2SAT 96
[2024-11-26 12:12] VITALS: PULSE 60
[2024-11-26] MEDS: POTASSIUM CHLORIDE 20MEQ TAB 40 MEQ PO (13:01)
[2024-11-26] MEDS: MAGNESIUM SULFATE IN WATER 2 GM/50 ML PIGGYBACK IV ×2 (13:01→13:52)
--- NOTE | 2024-11-26 13:47 | EXP.DC.SUM ---
General Admission date:: 11/24/24 HPI HPI HPI: This is a 69-year-old female who is well-known to our service line and has a past medical history significant for hypothyroidism, thyroid megaly, dementia, Parkinson's, dysphagia, vitamin B12 deficiency, vitamin D deficiency, hyperlipidemia, insomnia, and weight loss who presents with a chief complaint of confusion. Patient's symptoms, she presented to the emergency room for evaluation. While in the emergency room, patient's serum calcium was 6.4 and her urinalysis was consistent with a urinary tract infection. Due to these findings, hospital medicine was consulted for further admission. Patient has been admitted for further management. During my evaluation of the patient, patient appears to be resting comfortably. She is alert and oriented x 4 for me. Daughter at the bedside states that patient has had increased confusion since her recent surgery. It is worth mentioning that patient is status post thyroidectomy and postoperatively patient has done well. Surgical incision has no abnormalities focalized or visualized. Daughter shared with me a video of patient lying in bed speaking out to herself. When daughter asked who patient was speaking to or was not anyone there, patient was saying though she was not speaking to anyone. Daughter notes that patient has had increasing confusion over the past 72 hours. On exam, patient is able to answer my questions without any problems. Daughter requested that I ask patient her children's name and patient was able to state 7 out of the 11 of the children. Daughter states that this is an improvement from the past. Patient is without any tetany, seizure activity, or fullness of the throat; moreover, she is denying any lightheadedness, dizziness, fever, chills, rigors, nausea, vomiting, shortness of breath, dyspnea, chest pain, or diarrhea. Additional pertinent vitals obtained include CT scan of the head was negative for any acute intracranial process, patient's potassium was 3.4, chloride was 109, calcium was 6.2 (7.3 at discharge on November 22, 2024), T4 of 11.2, PTH of less than 3.4 (previous was 3.6), red blood cell count of 4, hemoglobin 11.8, hematocrit of 33.6, urinalysis revealed 1+ blood/20+ leukocyte Estrace/4+ blood. Hospital Course Hospital Course Hospital Course: Anamaria Kelly is a 69-year-old female with a medical history significant for Parkinson's disease/dysphagia who presented for concerning altered mental status, and was admitted for severe hypocalcemia, UTI. #Acute metabolic encephalopathy #UTI ? UA grossly abnormal, follow-up urine culture. Hypocalcemia also complicated encephalopathy. ? Significantly improved with ceftriaxone, calcium repletion. ? Discharged with cefdinir for 2 more days, will follow-up on urine culture. #Hypoparathyroidism #Hypocalcemia #Tremors ? Only right inferior parathyroid gland was removed during total thyroidectomy. ? Patient had persistent low calcium during initial course of hospitalization, around 6.0, that gradually improved with IV calcium gluconate, oral calcium gluconate, and calcitriol. ? Patient was symptomatic during this period with profound essential tremors in bilateral upper extremities, worse with intention and movement. Denies paresthesias. ? EKG did show inverted T waves in anterior lateral leads. Patient however remained stable, vital signs stable ? Spoke with Dr. Willoughby, ENT, recommended increasing calcitriol to 1 mcg twice daily, continue calcium carbonate. Unfortunately, this overcorrected phosphorus and dose was decreased back to 0.5 mg twice daily. ? Propranolol 10 mg was also given for tremors. Ultimately, calcium improved to 7.2 corrected with improvement in tremors and mentation. A lot more conversational today, family very happy about this. Patient tolerating oral meds well. ? PTH also improving, 7.2. Previously undetectable. ? Discharged with calcitriol 0.5 mcg twice daily, calcium carbonate 1000 mg 3 times daily. ? Patient has an appointment with PCP in 1 week. Will also follow-up with ENT within 2 weeks. Follow-up repeat BMP, phosphorus this Wednesday. #Right papillary thyroid carcinoma/nodule #Hypothyroidism ? S/p outpatient ENT total thyroidectomy. Only right inferior parathyroid gland was removed. Patient tolerated procedure well. ? Incision site clean dry and intact. Patient tolerated p.o. intake. ? Continue levothyroxine 88 mcg. TFT normal. #Parkinson's disease, dementia #Dysphagia ? Resume home carbidopa/levodopa, donepezil. Memantine was previously discontinued due to constipation. Total time spent on discharge: 40 minutes on chart review, counseling, documentation, and direct care with patient. Exam Data for Last 24 hours Vital signs and Labs for Last 24 Hours: Temp Pulse Resp BP Pulse Ox O2 Del Method 97.9 F 62 18 115/80 96 Room Air 11/26/24 12:00 11/26/24 12:00 11/26/24 12:00 11/26/24 12:00 11/26/24 12:00 11/26/24 12:00 Laboratory Results - last 24 hr 11/24/24 01:55: Urine Color Yellow, Urine Appearance Cloudy, Urine pH 7.0, Ur Specific [place] 1.020, Urine Protein Trace, Urine Glucose (UA) Negative, Urine Ketones Trace, Urine Blood 1+ A, Urine Nitrate Negative, Urine Bilirubin Negative, Urine Urobilinogen 2.0, Ur Leukocyte Esterase 3+ A, Urine RBC 3-5, Urine WBC 20-50, Urine Bacteria 4+ 11/24/24 05:35: Ionized Calcium 3.8 L 11/26/24 06:20: WBC 5.1, RBC 3.74 L, Hgb 10.9 L, Hct 33.4 L, MCV 89.3, MCH 29.1, MCHC 32.6, RDW 13.5, Plt Count 244, MPV 9.9, Neut % (Auto) 59.9, Lymph % (Auto) 22.7, [place] % (Auto) 9.3, Eos % (Auto) 6.1, Baso % (Auto) 1.6, Neut # (Auto) 3.0, Lymph # (Auto) 1.2, [place] # (Auto) 0.5, Eos # (Auto) 0.3, Baso # (Auto) 0.1, Sodium 140, Potassium 3.5, Chloride 107, Carbon Dioxide 27, Anion Gap 9.5, BUN 7, Creatinine 0.50 L, Estimated Creat Clear 50, Estimated GFR 122, Est GFR ( Amer) 148, Glucose 82, Calcium 6.9 L, Phosphorus 6.7 H D, Magnesium 1.4 L D, Total Bilirubin 0.5, AST 26, ALT 13 D, Alkaline Phosphatase 70, Total Protein 5.6 L, Albumin 3.1 L, Globulin 2.5, Albumin/Globulin Ratio 1.2, PTH Intact 7.2 L I & O for Last 24 hours: Intake & Output 11/23/24 11/24/24 11/25/24 11/26/24 23:59 23:59 23:59 23:59 Intake Total 740 / 890 1010 / 1360 470 / 470 Output Total 700 / 700 0 / 0 0 / 0 Balance 40 / 190 1010 / 1360 470 / 470 Weight 60.01 kg 61.28 kg 60.01 kg Microbiology Reports for the Last 24 Hours: Microbiology 11/24/24 01:55 Urine,Clean Catch Urine Culture - Preliminary Gram Negative Rods Gram Negative Rods#2 11/24/24 02:35 Blood Blood Culture - Preliminary NO GROWTH AFTER 48 HOURS 11/24/24 02:34 Blood Blood Culture - Preliminary NO GROWTH AFTER 48 HOURS Constitutional Constitutional: no acute distress, average body habitus, chronically ill appearing and cooperative *Routine HEENT Exam Head: Present normocephalic Eye: Present EOMI and PERRL ENT: Present mucous membranes moist *Routine Neck Exam Neck: Present supple; Absent lymphadenopathy Comments: clean, dry, intact incision at base of anterior neck, no bleeding, swelling; mild pain to palpation *Routine Respiratory Exam Respiratory: Present CTA bilaterally; Absent rhonchi, wheezes or crackles *Routine Cardiovascular Exam Cardiovascular: Present RRR *Routine Abdominal Exam Abdominal: Present soft and normoactive bowel sounds; Absent tenderness *Routine Rectal Exam Patient deferred: visual exam *Routine Exam Patient deferred: external exam *Routine Extremities Exam Extremities: Absent cyanosis, clubbing or edema *Routine Skin Exam Skin: Present intact and warm; Absent rash *Routine Neurological Exam Neurological: Present alert, moving all extremities and tremors; Absent altered mental status Results Data Completed and Pending Labs on day of discharge: Labs from last 24 hours 11/26/24 11/24/24 11/24/24 06:20 05:35 01:55 WBC 5.1 RBC 3.74 L Hgb 10.9 L Hct 33.4 L MCV 89.3 MCH 29.1 MCHC 32.6 RDW 13.5 Plt Count 244 MPV 9.9 Neut % (Auto) 59.9 Lymph % (Auto) 22.7 [place] % (Auto) 9.3 Eos % (Auto) 6.1 Baso % (Auto) 1.6 Neut # (Auto) 3.0 Lymph # (Auto) 1.2 [place] # (Auto) 0.5 Eos # (Auto) 0.3 Baso # (Auto) 0.1 Sodium 140 Potassium 3.5 Chloride 107 Carbon Dioxide 27 Anion Gap 9.5 BUN 7 Creatinine 0.50 L Estimated Creat Clear 50 Estimated GFR 122 Est GFR ( Amer) 148 Glucose 82 Calcium 6.9 L Ionized Calcium 3.8 L Phosphorus 6.7 H D Magnesium 1.4 L D Total Bilirubin 0.5 AST 26 ALT 13 D Alkaline Phosphatase 70 Total Protein 5.6 L Albumin 3.1 L Globulin 2.5 Albumin/Globulin Ratio 1.2 PTH Intact 7.2 L Urine Color Yellow Urine Appearance Cloudy Urine pH 7.0 Ur Specific [place] 1.020 Urine Protein Trace Urine Glucose (UA) Negative Urine Ketones Trace Urine Blood 1+ A Urine Nitrate Negative Urine Bilirubin Negative Urine Urobilinogen 2.0 Ur Leukocyte Esterase 3+ A Urine RBC 3-5 Urine WBC 20-50 Urine Bacteria 4+ Preliminary micro results at discharge 11/24/24 01:55 Urine Culture - Preliminary Urine,Clean Catch Gram Negative Rods Gram Negative Rods#2 11/24/24 02:35 Blood Culture - Preliminary Blood NO GROWTH AFTER 48 HOURS 11/24/24 02:34 Blood Culture - Preliminary Blood NO GROWTH AFTER 48 HOURS DS: Diagnosis Discharge Diagnosis (1) AMS (altered mental status): Status: Acute Code(s): R41.82 - Altered mental status, unspecified Qualifiers: Altered mental status type: unspecified Qualified Code(s): R41.82 - Altered mental status, unspecified (2) Acute UTI: Status: Acute Code(s): N39.0 - Urinary tract infection, site not specified (3) Hypocalcemia: Status: Acute Code(s): E83.51 - Hypocalcemia (4) Hypoparathyroidism after procedure: Status: Acute Code(s): E89.2 - Postprocedural hypoparathyroidism (5) Papillary carcinoma of thyroid: Status: Acute Code(s): C73 - Malignant neoplasm of thyroid gland Problem details: Dx 10/20/2024 Meds Home Medications and Allergies Home Medications ?Medication ?Instructions ?Recorded ?Confirmed ?Type mecobalamin (vitamin B12) 1,000 1,000 mcg PO DAILY #90 tabs 08/14/24 11/24/24 Rx mcg chewable tablet denosumab 60 mg/mL subcutaneous 60 mg SQ [id number] #1 mL 08/17/24 11/24/24 Rx syringe (Prolia) carbidopa 25 mg-levodopa 100 mg 1 tab PO TID 11/01/24 11/24/24 History tablet donepezil 10 mg tablet 10 mg PO HS 11/01/24 11/24/24 History megestrol 400 mg/10 mL (10 mL) 400 mg PO DAILY 11/01/24 11/24/24 History oral suspension levothyroxine 88 mcg capsule 88 mcg PO DAILY #30 caps 11/22/24 11/24/24 Rx calcitriol 0.25 mcg capsule 0.5 mcg (2 x 0.25 mcg) PO BID 30 11/24/24 Rx days #120 caps calcium carbonate (Tums) 1,000 mg (5 x 200 mg calcium (500 11/26/24 Rx mg)) PO TID 30 days #450 tabs cefdinir 300 mg capsule 300 mg PO BID 3 days #6 caps 11/26/24 Rx propranolol 20 mg tablet 10 mg (1/2 x 20 mg) PO TID PRN 11/26/24 Rx Tremors 30 days #30 tabs New Prescriptions to Start Prescriptions: Kaushik Méndez calcium carbonate [Tums] Eduardo Greer cefdinir Zoey,Eduardo propranolol Eduardo Greer Allergies Allergy/AdvReac Type Severity Reaction Status Date / Time [id number] Reductase AdvReac Other Verified 11/21/24 08:03 Inhibitor Discharge Plan Disposition Patient Disposition: Home, Self-Care Condition: Fair Follow up Plan Follow up with: Cecile Goldstein APRN [Nurse Practitioner] - 11/29/24 3:20 pm Gisell Recinos APRN [Primary Care Provider] - 11/29/24 9:30 am Prescriptions/Medication Reconciliation: New calcitriol 0.25 mcg Capsule 0.5 mcg PO BID 30 Days Qty: 120 0RF propranolol 20 mg Tablet 10 mg PO TID PRN (Reason: Tremors) 30 Days Qty: 30 0RF cefdinir 300 mg capsule 300 mg PO BID 3 Days Qty: 6 0RF calcium carbonate [Tums] 200 mg calcium (500 mg) Tablet,Chewable 1,000 mg PO TID 30 Days Qty: 450 0RF Continued donepezil 10 mg tablet 10 mg PO HS carbidopa-levodopa 25-100 mg tablet 1 tab PO TID megestrol 400 mg/10 mL (10 mL) suspension 400 mg PO DAILY mecobalamin (vitamin B12) 1,000 mcg tablet,chewable 1,000 mcg PO DAILY Qty: 90 3RF Prolia 60 mg/mL syringe 60 mg SQ [id number] Qty: 1 1RF levothyroxine 88 mcg capsule 88 mcg PO DAILY Qty: 30 0RF Discontinued cholecalciferol (vitamin D3) 50 mcg (2,000 unit) capsule 50 mcg PO DAILY Qty: 90 3RF calcium carbonate 600 mg calcium (1,500 mg) tablet 1,200 mg PO DAILY Qty: 180 3RF Other Ambulatory Orders: Basic Metabolic Panel (Routine) Timeframe: 1 Week Facility: [facility] - Location: Laboratory Ordered By: Eduardo Greer Phosphorous (Routine) Timeframe: 1 Week Facility: [facility] - Location: Laboratory Ordered By: Eduardo Greer Problem Reconciliation Problems Reviewed?: Yes Patient Discharge Instructions ACTIVITY: Continue current activity DIET: continue same diet Patient Instructions: Dementia, Hypoparathyroidism, DI for Urinary Tract Infection (UTI), DI for Surgical Site Infection, DI for Altered Mental Status Print Language: [place]ic Providers Primary Care Provider: Gisell Recinos Admit Provider: Kaushik Casillas Attending Provider: Kaushik Casillas
--- NOTE | 2024-11-27 12:50 | SW/DCPLANNER ---
Spoke with patient's daughter on the phone. Patient's daughter stated that her mother is doing good and that she has had some sleepless nights. Patients daughter stated that she is aware of her mothers upcoming appointments. Patients daughter stated that she was able to product picker her new medicine. Patients daughter stated that she has no concerns or questions at this time. Lien Polo
== END 2024-11-26 15:27 | disposition home or self-care (01) ==
LOC: ER 02:27 → 2ND 02:43
PROVIDERS: Nurse Practitioner Family; Student in an Organized Health Care Education/Training Program; Admitting Provider Internal Medicine Adolescent Medicine; Emergency Provider Emergency Medicine; PCP Nurse Practitioner Family; Visit Provider Internal Medicine Adolescent Medicine
DX: E83.51 Hypocalcemia (principal); G93.41 Metabolic encephalopathy; N39.0 Urinary tract infection, site not specified; E89.2 Postprocedural hypoparathyroidism; R13.10 Dysphagia, unspecified; E78.5 Hyperlipidemia, unspecified; C73 Malignant neoplasm of thyroid gland; R41.82 Altered mental status, unspecified; G20.C Parkinsonism, unspecified; F02.80 Dementia in other diseases classified elsewhere, unspecified severity, without behavioral disturbance, psychotic disturbance, mood disturbance, and anxiety; R63.4 Abnormal weight loss; Z68.21 Body mass index [BMI] 21.0-21.9, adult; G47.00 Insomnia, unspecified; Z79.890 Hormone replacement therapy; Z88.8 Allergy status to other drugs, medicaments and biological substances; Z79.899 Other long term (current) drug therapy; Z80.51 Family history of malignant neoplasm of kidney; Z80.9 Family history of malignant neoplasm, unspecified; Z81.8 Family history of other mental and behavioral disorders; Z90.49 Acquired absence of other specified parts of digestive tract
CPT/HCPCS: 36415; 70450; 80053; 81001; 82330; 83735; 83970; 84100; 84436; 84443; 85025; 87040; 87086; 87088; 87186; 93005; 99285; G0378; J0696; J1650; J3475

== ENCOUNTER 2024-11-28 14:17 | Outpatient (CLI) | payer MEDICARE, SELFPAY ==
[2024-11-28 15:15] LABS: Chloride 105 mmol/L (98-107); Potassium 4.3 mmoL/L (3.5-5.1); Sodium 140 mmol/L (136-145)
[2024-11-28 15:17] LABS: Blood Urea Nitrogen 14 mg/dl (7-17); Estimated Glomerular Filt Rate 83 ml/min (>60); GFR (African American) 100 ML/MIN (>60)
[2024-11-28 15:18] LABS: Anion Gap 9.3 mEq/L (5-15); Calcium 9.7 mg/dl (8.4-10.2); Carbon Dioxide 30 mmol/L (22.0-30.0); Glucose 95 mg/dl (74-100); Phosphorous 3.8 mg/dl (2.5-4.5)
== END 2024-11-28 23:59 | disposition home or self-care (01) ==
LOC: LAB 14:17
PROVIDERS: PCP Nurse Practitioner Family; Visit Provider Student in an Organized Health Care Education/Training Program
DX: E89.2 Postprocedural hypoparathyroidism (principal); E83.51 Hypocalcemia
CPT/HCPCS: 36415; 80048; 84100